=== PATIENT | male | born 1950 | race African-American/Black ===

== ENCOUNTER 2016-09-06 17:45 | Inpatient (IN) | payer BC, MEDICARE ==
[~2016-09-06] VITALS: Ht 190.5 cm; Wt 159.0 kg
[~2016-09-06 17:45] MED LIST: ACET1TAB33 PO; AMOX1TAB61 PO; CARV25TA2 PO; DULO60CA6 PO; HYDR-2762 PO; INDA1.25 PO; LISI1TAB7 PO; MECL25TA3 PO; METF-620 PO; SIMV10TA3 PO; WARF4TAB7 PO
[2016-09-06] MEDS ORDERED: FUROSEMIDE 20 MG/2 ML VIAL. IVP ONE (18:15)
[2016-09-06] MEDS ORDERED: NITROGLYCERIN SUBLINGUAL 0.4 MG BOTTLE OF 25. SL PRN (18:15)
[2016-09-06] MEDS ORDERED: NITROGLYCERIN OINT 1 GM PACKET. TP ONE (18:15)
--- NOTE | 2016-09-06 18:22 | PHYS DOC ---
Past Medical History Past Medical History: CHF, Diabetes-Type II, High Cholesterol, Heart Disease, Hypertension, Other Additional Past Medical Histor: BLOOD CLOTS, PE Past Surgical History: Knee Replacement, Tonsillectomy, Other Additional Past Surgical Histo: ELBOW X 2, KNEE SCOPE X3, FOOT X2, CARDIAC STENT X 3, ENDOCART/FILTER Alcohol Use: Occasionally Drug Use: Marijuana Adult General Chief Complaint Chief Complaint: CHEST PAIN HPI HPI Patient is a 66 year old male presenting to the emergency department for evaluation of worsening chest pain shortness of breath that started earlier this morning. Patient is very obese and has multiple medical problems including asthma and congestive heart failure and pulmonary emboli. He is being treated with warfarin and he says that he feels more volume overloaded as his legs are more swollen and he feels that he cannot lay flat without getting very anxious and short of breath. Patient denies any fevers productive cough nausea or vomiting but he does say that he is quite diaphoretic today. Review of Systems Review of Systems Constitutional: Denies fever or chills [] Eyes: Denies change in visual acuity, redness, or eye pain [] HENT: Denies nasal congestion or sore throat [] Respiratory: Denies cough. + shortness of breath [] Cardiovascular: +CP GI: Denies abdominal pain, nausea, vomiting, bloody stools or diarrhea [] : Denies dysuria or hematuria [] Musculoskeletal: Denies back pain or joint pain [] Integument: Denies rash or skin lesions [] Neurologic: Denies headache, focal weakness or sensory changes [] Current Medications Current Medications Current Medications Medications (Trade) Dose Ordered Sig/Ilene Start Time Stop Time Status Last Admin Dose Admin Furosemide (Lasix) 20 mg 1X ONCE 09/06/16 18:15 09/06/16 18:16 DC 09/06/16 18:15 20 MG Lorazepam (Ativan) 1 mg 1X ONCE 09/06/16 18:15 09/06/16 18:16 DC 09/06/16 18:15 1 MG Nitroglycerin (Nitro-Bid Oint) 1 inch 1X ONCE 09/06/16 18:15 09/06/16 18:16 DC 09/06/16 18:15 1 INCH Nitroglycerin (Nitrostat) 0.4 mg PRN Q5MIN PRN 09/06/16 18:15 Allergies Allergies Allergies Coded Allergies Type Severity Reaction Last Updated Verified fentanyl Allergy Mild Nausea and Vomiting 01/02/16 Yes Physical Exam Physical Exam Constitutional: Well developed, well nourished, moderate respiratory distress, non-toxic appearance. [] HENT: Normocephalic, atraumatic, bilateral external ears normal, oropharynx moist, no oral exudates, nose normal. [] Eyes: PERRLA, EOMI, conjunctiva normal, no discharge. [] Neck: Normal range of motion, no tenderness, supple, no stridor. [] Cardiovascular:Heart rate tachycardic with regular rhythm, coarse breath sounds Lungs & Thorax: Bilateral breath sounds clear to auscultation [] Abdomen: Bowel sounds normal, soft, no tenderness, no masses, no pulsatile masses. [] Skin: Warm, dry, no erythema, no rash. [] Back: No tenderness, no CVA tenderness. [] Extremities: No tenderness, no cyanosis, no clubbing, ROM intact. 2+ edema BL. [] Neurologic: Alert and oriented X 3, normal motor function, normal sensory function, no focal deficits noted. [] Current Patient Data Vital Signs Vital Signs Date Time Temp Pulse Resp B/P (MAP) Pulse Ox O2 Delivery O2 Flow Rate FiO2 09/06/16 18:45 110 28 171/91 (117) 100 09/06/16 18:25 BiPAP/CPAP 09/06/16 17:55 97.7 97.7 Lab Values Laboratory Tests Test 09/06/16 18:27 09/06/16 19:55 09/06/16 19:57 White Blood Count 6.2 x10^3/uL (4.0-11.0) Red Blood Count 4.42 x10^6/uL (4.30-5.70) Hemoglobin 12.3 g/dL (13.0-17.5) L Hematocrit 37.6 % (39.0-53.0) L Mean Corpuscular Volume 85 fL (79-100) Mean Corpuscular Hemoglobin 28 pg (25-35) Mean Corpuscular Hemoglobin Concent 33 g/dL (31-37) Red Cell Distribution Width 16.6 % (11.5-14.5) H Platelet Count 313 x10^3/uL (140-400) Neutrophils (%) (Auto) 66 % (31-73) Lymphocytes (%) (Auto) 22 % (24-48) L Monocytes (%) (Auto) 10 % (0-9) H Eosinophils (%) (Auto) 1 % (0-3) Basophils (%) (Auto) 1 % (0-3) Neutrophils # (Auto) 4.1 x10^3uL (1.8-7.7) Lymphocytes # (Auto) 1.3 x10^3/uL (1.0-4.8) Monocytes # (Auto) 0.6 x10^3/uL (0.0-1.1) Eosinophils # (Auto) 0.1 x10^3/uL (0.0-0.7) Basophils # (Auto) 0.1 x10^3/uL (0.0-0.2) Prothrombin Time 21.2 SEC (11.7-14.0) H Prothrombin Time INR 2.0 (0.8-1.1) H PTT 29 SEC (24-38) Lactic Acid Level 2.9 mmol/L (0.4-2.0) H POC Troponin I 0.02 ng/ml (<0.08) POC Hemoglobin 14.3 g/dL (14-18) POC Hematocrit 42 % (37-52) POC Sodium 140 mmol/L (135-145) POC Potassium 4.4 mmol/L (3.5-5.0) POC Chloride 100 mmol/L (98-110) POC Total CO2 27 mmol/L (23-32) Anion Gap 18 mmol/L (6-14) H POC Blood Urea Nitrogen 13 mg/dL (8-26) POC Creatinine 0.9 mg/dL (0.5-1.4) Glucose Level 161 mg/dL (70-99) H POC Ionized Calcium (Lois) 1.21 mmol/L (1.13-1.32) Laboratory Tests 09/06/16 18:27 Laboratory Tests 09/06/16 19:57 EKG EKG Sinus tachycardia at 113 bpm with leftward axis incomplete right bundle branch block with no obvious ST elevation or depression and normal T waves. Radiology/Procedures Radiology/Procedures Mediastinum cardiomegaly noted with bilateral upper lobe edema Course & Med Decision Making Course & Med Decision Making Patient is in moderate respiratory distress and was placed on BiPAP in addition to sublingual nitroglycerin and Nitropaste. Patient was doing much better after this treatment and he took off the BiPAP on his own as he said he felt much better. He does have some right lower lobe fullness although I do not think this is definitely a bacterial pneumonia although could be considered. He has normal white blood cell count. Acid elevated likely from respiratory distress and initial hypoxia. Patient will be admitted for further observation and treatment. Pulmonary embolism is already diagnosed and he is therapeutically treated with Coumadin. Dragon Disclaimer Dragon Disclaimer This electronic medical record was generated, in whole or in part, using a voice recognition dictation system. Departure Departure Impression: Primary Impression: Acute exacerbation of CHF (congestive heart failure) Additional Impression: Lactic acid acidosis Disposition: ADMITTED INPATIENT Admitting Physician: Matty Torres Condition: IMPROVED Referrals: UNKNOWN PCP NAME (PCP) Problem Qualifiers Primary Impression: Acute exacerbation of CHF (congestive heart failure) Congestive heart failure type: unspecified congestive heart failure type Qualified Codes: I50.9 - Heart failure, unspecified BEA PELAEZ DO September 06, 2016 18:22
[2016-09-06 18:37] LABS: BASO # 0.1 x10^3/uL (0.0-0.2); BASO % 1 % (0-3); EOS % 1 % (0-3); HEMATOCRIT 37.6 % (39.0-53.0); HEMOGLOBIN 12.3 g/dL (13.0-17.5); LYMPH # 1.3 x10^3/uL (1.0-4.8); LYMPH % 22 % (24-48); MEAN CORPUSCULAR HEMOGLOBIN 28 pg (25-35); MEAN CORPUSCULAR HGB CONC 33 g/dL (31-37); MEAN CORPUSCULAR VOLUME 85 fL (79-100); MONO % 10 % (0-9); NEUT % 66 % (31-73); PLATELET COUNT 313 x10^3/uL (140-400); RED BLOOD COUNT 4.42 x10^6/uL (4.30-5.70); RED CELL DISTRIBUTION WIDTH 16.6 % (11.5-14.5); WHITE BLOOD COUNT 6.2 x10^3/uL (4.0-11.0)
[2016-09-06 18:52] LABS: PROTHROMBIN TIME PATIENT 21.2 SEC (11.7-14.0)
[2016-09-06 20:00] LABS: POTASSIUM ISTAT 4.4 mmol/L (3.5-5.0)
[2016-09-06 20:18] LABS: CALCIUM 9.9 mg/dL (8.5-10.1); CREATININE 1.1 mg/dL (0.7-1.3); GFR 80.5; POTASSIUM 4.5 mmol/L (3.5-5.1)
[2016-09-06 20:26] LABS: ALBUMIN 3.5 g/dL (3.4-5.0); ALBUMIN/GLOBULIN RATIO 0.9 (1.0-1.7); MAGNESIUM 1.9 mg/dL (1.8-2.4); TOTAL BILIRUBIN 0.9 mg/dL (0.2-1.0); TOTAL PROTEIN 7.5 g/dL (6.4-8.2)
[2016-09-06] MEDS ORDERED: ONDANSETRON PF 4 MG/2 ML VIAL. IV PRN (20:45)
[2016-09-06] MEDS ORDERED: LISI10TA2 PO (21:40)
[2016-09-06] MEDS ORDERED: TRAM50TA PO (21:40)
[2016-09-06] MEDS ORDERED: WARF4TAB7 PO (21:40)
[2016-09-06] MEDS ORDERED: GABA-586 PO (21:40)
[2016-09-06 21:51] VITALS: BP 161/116
[2016-09-06] MEDS ORDERED: ACETAMINOPHEN/CODEINE 300/30MG TABLET. PO PRN (22:15)
[2016-09-06 22:23] VITALS: BP 144/110
[2016-09-06] MEDS ORDERED: MECLIZINE HCL 12.5 MG TABLET. PO PRN (22:30)
[2016-09-06] MEDS: DULoxetine HCL 30 MG CAPSULE.DR PO SCH (22:43)
[2016-09-06] MEDS: LISINOPRIL 10 MG TABLET PO SCH (22:44)
[2016-09-06] MEDS: GABAPENTIN 300 MG CAPSULE. PO SCH (22:44)
[2016-09-06] MEDS: CARVEDILOL 12.5 MG TABLET. PO SCH (22:44)
[2016-09-06] MEDS: SIMVASTATIN 10 MG TABLET PO SCH (22:44)
[2016-09-06] MEDS: traMADol 50 MG TABLET PO SCH (22:45)
--- NOTE | 2016-09-06 23:38 | PDOC1 ---
History and Physical Current Problem List Problem List Problems Medical Problems: (1) Acute exacerbation of CHF (congestive heart failure) Status: Acute (2) Lactic acid acidosis Status: Acute Current Medications Current Medications Current Medications Medications (Trade) Dose Ordered Sig/Ilene Start Time Stop Time Status Last Admin Dose Admin Acetaminophen/ Codeine Phosphate (Tylenol #3) 1 tab PRN Q4HRS PRN 09/06/16 22:15 Carvedilol (Coreg) 25 mg BIDWMEALS 09/06/16 23:00 09/06/16 22:44 25 MG Duloxetine HCl (Cymbalta) 60 mg BID 09/06/16 23:00 09/06/16 22:43 60 MG Furosemide (Lasix) 20 mg 1X ONCE 09/06/16 18:15 09/06/16 18:16 DC 09/06/16 18:15 20 MG Gabapentin (Neurontin) 300 mg TID 09/06/16 23:00 09/06/16 22:44 300 MG Lisinopril (Prinivil) 10 mg BID 09/06/16 23:00 09/06/16 22:44 10 MG Lorazepam (Ativan) 1 mg 1X ONCE 09/06/16 18:15 09/06/16 18:16 DC 09/06/16 18:15 1 MG Meclizine HCl (Antivert) 25 mg PRN BID PRN 09/06/16 22:30 Nitroglycerin (Nitro-Bid Oint) 1 inch 1X ONCE 09/06/16 18:15 09/06/16 18:16 DC 09/06/16 18:15 1 INCH Nitroglycerin (Nitrostat) 0.4 mg PRN Q5MIN PRN 09/06/16 18:15 Ondansetron HCl (Zofran) 4 mg PRN Q8HRS PRN 09/06/16 20:45 09/07/16 20:44 Simvastatin (Zocor) 10 mg QHS 09/06/16 23:00 09/06/16 22:44 10 MG Tramadol HCl (Ultram) 50 mg BID 09/06/16 23:00 09/06/16 22:45 50 MG Warfarin Sodium (Coumadin Per Physician) 1 each PRN DAILY PRN 09/06/16 22:45 Warfarin Sodium (Coumadin) 4 mg DAILY16 09/07/16 16:00 Allergies Allergies Allergies Coded Allergies Type Severity Reaction Last Updated Verified fentanyl Allergy Mild Nausea and Vomiting 01/02/16 Yes ROS Review of System CONSTITUTIONAL: No fever or chills EYES: No recent changes SKIN: No rash or itching CARDIOVASCULAR: No chest pain, syncope, palpitations, or edema RESPIRATORY: No SOB or cough GASTROINTESTINAL: No nausea, vomiting or abdominal pain NEUROLOGICAL: No headaches or weakness ENDOCRINE: No cold or heat intolerance GENITOURINARY: No urgency or frequency of urination MUSCULOSKELETAL: No back pain or joint pain LYMPHATICS: No enlarged lymph nodes PSYCHIATRIC: No anxiety or depression Physical Exam Physical Exam GEN.: No apparent distress. Alert and oriented. HEENT: Head is normocephalic, atraumatic NECK: Supple. no JVD LUNGS: anterior- Clear to auscultation. basal rales HEART: RRR, S1, S2 present. Peripheral pulses intact ABDOMEN: Soft, nontender. Positive bowel sounds. EXTREMITIES: Without any cyanosis. +2 edema NEUROLOGIC: Normal speech, normal tone PSYCHIATRIC: Normal affect, normal mood. SKIN: not dry, no rash Vitals Vitals Vital Signs Date Time Temp Pulse Resp B/P (MAP) Pulse Ox O2 Delivery O2 Flow Rate FiO2 09/06/16 22:45 94 09/06/16 22:44 109 144/110 09/06/16 22:23 97.9 18 Room Air 97.9 Labs Labs Laboratory Tests Test 09/06/16 18:27 09/06/16 19:45 09/06/16 19:55 09/06/16 19:57 White Blood Count 6.2 x10^3/uL (4.0-11.0) Red Blood Count 4.42 x10^6/uL (4.30-5.70) Hemoglobin 12.3 g/dL (13.0-17.5) Hematocrit 37.6 % (39.0-53.0) Mean Corpuscular Volume 85 fL (79-100) Mean Corpuscular Hemoglobin 28 pg (25-35) Mean Corpuscular Hemoglobin Concent 33 g/dL (31-37) Red Cell Distribution Width 16.6 % (11.5-14.5) Platelet Count 313 x10^3/uL (140-400) Neutrophils (%) (Auto) 66 % (31-73) Lymphocytes (%) (Auto) 22 % (24-48) Monocytes (%) (Auto) 10 % (0-9) Eosinophils (%) (Auto) 1 % (0-3) Basophils (%) (Auto) 1 % (0-3) Neutrophils # (Auto) 4.1 x10^3uL (1.8-7.7) Lymphocytes # (Auto) 1.3 x10^3/uL (1.0-4.8) Monocytes # (Auto) 0.6 x10^3/uL (0.0-1.1) Eosinophils # (Auto) 0.1 x10^3/uL (0.0-0.7) Basophils # (Auto) 0.1 x10^3/uL (0.0-0.2) Prothrombin Time 21.2 SEC (11.7-14.0) Prothromb Time International Ratio 2.0 (0.8-1.1) Activated Partial Thromboplast Time 29 SEC (24-38) Lactic Acid Level 2.9 mmol/L (0.4-2.0) Sodium Level 139 mmol/L (136-145) Potassium Level 4.5 mmol/L (3.5-5.1) Chloride Level 103 mmol/L (98-107) Carbon Dioxide Level 32 mmol/L (21-32) Anion Gap 4 (6-14) 18 mmol/L (6-14) Blood Urea Nitrogen 13 mg/dL (8-26) Creatinine 1.1 mg/dL (0.7-1.3) Estimated GFR (Cockcroft-Gault) 80.5 BUN/Creatinine Ratio 12 (6-20) Glucose Level 168 mg/dL (70-99) 161 mg/dL (70-99) Calcium Level 9.9 mg/dL (8.5-10.1) Magnesium Level 1.9 mg/dL (1.8-2.4) Total Bilirubin 0.9 mg/dL (0.2-1.0) Aspartate Amino Transf (AST/SGOT) 40 U/L (15-37) Alanine Aminotransferase (ALT/SGPT) 68 U/L (16-63) Alkaline Phosphatase 101 U/L (46-116) Creatine Kinase 53 U/L (39-308) Troponin I Quantitative 0.024 ng/mL (0.000-0.055) CA-Mff-X-Type Natriuretic Peptide 2595 pg/mL (0-124) Total Protein 7.5 g/dL (6.4-8.2) Albumin 3.5 g/dL (3.4-5.0) Albumin/Globulin Ratio 0.9 (1.0-1.7) Bedside Troponin I 0.02 ng/ml (<0.08) Bedside Hemoglobin 14.3 g/dL (14-18) Bedside Hematocrit 42 % (37-52) Bedside Sodium 140 mmol/L (135-145) Bedside Potassium 4.4 mmol/L (3.5-5.0) Bedside Chloride 100 mmol/L (98-110) Bedside Total CO2 27 mmol/L (23-32) Bedside Blood Urea Nitrogen 13 mg/dL (8-26) Bedside Creatinine 0.9 mg/dL (0.5-1.4) Bedside Ionized Calcium (Lois) 1.21 mmol/L (1.13-1.32) Test 09/06/16 22:35 Lactic Acid Level 2.8 mmol/L (0.4-2.0) Laboratory Tests Test 09/06/16 18:27 09/06/16 19:45 09/06/16 19:55 09/06/16 19:57 White Blood Count 6.2 x10^3/uL (4.0-11.0) Red Blood Count 4.42 x10^6/uL (4.30-5.70) Hemoglobin 12.3 g/dL (13.0-17.5) Hematocrit 37.6 % (39.0-53.0) Mean Corpuscular Volume 85 fL (79-100) Mean Corpuscular Hemoglobin 28 pg (25-35) Mean Corpuscular Hemoglobin Concent 33 g/dL (31-37) Red Cell Distribution Width 16.6 % (11.5-14.5) Platelet Count 313 x10^3/uL (140-400) Neutrophils (%) (Auto) 66 % (31-73) Lymphocytes (%) (Auto) 22 % (24-48) Monocytes (%) (Auto) 10 % (0-9) Eosinophils (%) (Auto) 1 % (0-3) Basophils (%) (Auto) 1 % (0-3) Neutrophils # (Auto) 4.1 x10^3uL (1.8-7.7) Lymphocytes # (Auto) 1.3 x10^3/uL (1.0-4.8) Monocytes # (Auto) 0.6 x10^3/uL (0.0-1.1) Eosinophils # (Auto) 0.1 x10^3/uL (0.0-0.7) Basophils # (Auto) 0.1 x10^3/uL (0.0-0.2) Prothrombin Time 21.2 SEC (11.7-14.0) Prothromb Time International Ratio 2.0 (0.8-1.1) Activated Partial Thromboplast Time 29 SEC (24-38) Lactic Acid Level 2.9 mmol/L (0.4-2.0) Sodium Level 139 mmol/L (136-145) Potassium Level 4.5 mmol/L (3.5-5.1) Chloride Level 103 mmol/L (98-107) Carbon Dioxide Level 32 mmol/L (21-32) Anion Gap 4 (6-14) 18 mmol/L (6-14) Blood Urea Nitrogen 13 mg/dL (8-26) Creatinine 1.1 mg/dL (0.7-1.3) Estimated GFR (Cockcroft-Gault) 80.5 BUN/Creatinine Ratio 12 (6-20) Glucose Level 168 mg/dL (70-99) 161 mg/dL (70-99) Calcium Level 9.9 mg/dL (8.5-10.1) Magnesium Level 1.9 mg/dL (1.8-2.4) Total Bilirubin 0.9 mg/dL (0.2-1.0) Aspartate Amino Transf (AST/SGOT) 40 U/L (15-37) Alanine Aminotransferase (ALT/SGPT) 68 U/L (16-63) Alkaline Phosphatase 101 U/L (46-116) Creatine Kinase 53 U/L (39-308) Troponin I Quantitative 0.024 ng/mL (0.000-0.055) CR-Aay-T-Type Natriuretic Peptide 2595 pg/mL (0-124) Total Protein 7.5 g/dL (6.4-8.2) Albumin 3.5 g/dL (3.4-5.0) Albumin/Globulin Ratio 0.9 (1.0-1.7) Bedside Troponin I 0.02 ng/ml (<0.08) Bedside Hemoglobin 14.3 g/dL (14-18) Bedside Hematocrit 42 % (37-52) Bedside Sodium 140 mmol/L (135-145) Bedside Potassium 4.4 mmol/L (3.5-5.0) Bedside Chloride 100 mmol/L (98-110) Bedside Total CO2 27 mmol/L (23-32) Bedside Blood Urea Nitrogen 13 mg/dL (8-26) Bedside Creatinine 0.9 mg/dL (0.5-1.4) Bedside Ionized Calcium (Lois) 1.21 mmol/L (1.13-1.32) Test 09/06/16 22:35 Lactic Acid Level 2.8 mmol/L (0.4-2.0) VTE Prophylaxis Ordered VTE Prophylaxis Devices: Yes VTE Pharmacological Prophylaxi: Yes GELY YAO MD September 06, 2016 23:38
--- NOTE | 2016-09-07 00:54 | ACF ---
Admission Forms Criteria HEART FAILURE: COMMON COMPLICATIONS Clinical Indications for Inpatient Care (Place 'X' for any and all applicable criteria): Ongoing inpatient care may be indicated for heart failure with ANY ONE of the following (1)(2)(3)(4)(5): [ ]I. Ongoing need for care for primary condition requiring frequent therapy adjustments because of changes in cardiac function (eg, drug dosage changes for drugs that are renally metabolized) [ ]II. New-onset heart failure [ ]III. Heart failure with decreased urine output not responsive to attempts to optimize volume status [ ]IV. Acute cardiac ischemia causing or associated with failure [X]V. Complications of heart failure, including ANY ONE of the following: [ ]a) Pericardial effusion [ ]b) Symptomatic pleural effusion [ ]c) O2 saturation <90% or PO2 < 60 mm Hg (8.0 kPa) on room air or require baseline supplemental O2 [ ]d) Tachypnea [X]e) Dyspnea [ ]f) Syncope [ ]g) Change in mental status [ ]h) Acute renal insufficiency that is severe (reduction of more than 50% in estimated glomerular filtration rate from baseline) or progressive reduction of more than 25% in estimated glomerular filtration rate from baseline, with creatinine continuing to rise) [ ]i) Hemodynamic instability [ ]j) Anasarca [ ]k) Clinically significant metabolic abnormalities due to heart failure (eg, new-onset metabolic acidosis) Extended stay beyond goal length of stay for primary condition may be needed until ALL of the following are present(1)(3): [ ]a) Stable and effective diuretic regimen established (or patient on stable dialysis regimen if in chronic renal failure) [ ]b) Breathing comfortably at rest [ ]c) Saturation of arterial oxygen greater than 90% or at acceptable baseline [ ]d) Pulmonary edema absent or improved [ ]e) Hemodynamic stability [ ]f) Volume status acceptable on oral medication [ ]g) Peripheral or sacral edema absent or improved [ ]h) Renal function stable and manageable at a lower level of care [ ]i) Complications (eg, pleural effusion) resolved or manageable at a lower level of care [ ]j) Patient or caregiver has received written discharge instructions or educational material addressing activity level, diet, discharge medications, follow-up appointment, weight monitoring, and what to do if symptoms worsen The original [facility] content created by [employer] has been revised. The portions of the content which have been revised are identified through the use of italic text or in bold, and [facility] has neither reviewed nor approved the modified material.All other unmodified content is copyright [facility]. Please see references footnoted in the original [facility] edition 2016 Admission Criteria Met?: Yes HUMBLE BAEZA September 07, 2016 00:54
[2016-09-07 02:47] VITALS: BP 149/112
[2016-09-07] MEDS ORDERED: FUROSEMIDE 20 MG/2 ML VIAL. IVP ONE (04:00)
[2016-09-07 04:15] LABS: BASO # 0.1 x10^3/uL (0.0-0.2); BASO % 1 % (0-3); EOS % 2 % (0-3); HEMATOCRIT 37.7 % (39.0-53.0); HEMOGLOBIN 12.2 g/dL (13.0-17.5); LYMPH # 1.7 x10^3/uL (1.0-4.8); LYMPH % 30 % (24-48); MEAN CORPUSCULAR HEMOGLOBIN 27 pg (25-35); MEAN CORPUSCULAR HGB CONC 32 g/dL (31-37); MEAN CORPUSCULAR VOLUME 85 fL (79-100); MONO % 9 % (0-9); NEUT % 58 % (31-73); PLATELET COUNT 319 x10^3/uL (140-400); RED BLOOD COUNT 4.44 x10^6/uL (4.30-5.70); RED CELL DISTRIBUTION WIDTH 16.2 % (11.5-14.5); WHITE BLOOD COUNT 5.6 x10^3/uL (4.0-11.0)
[2016-09-07 05:05] LABS: CALCIUM 9.5 mg/dL (8.5-10.1); CREATININE 0.9 mg/dL (0.7-1.3); GFR 101.5; POTASSIUM 4.4 mmol/L (3.5-5.1)
[2016-09-07 07:00] VITALS: BP 133/102
[2016-09-07] MEDS ORDERED: CARVEDILOL 12.5 MG TABLET. PO SCH (08:00)
--- NOTE | 2016-09-07 08:52 | PDOC2 ---
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 Reports that initially he started having CARRION then SOA at rest which all started about 3-4 days ago. In addition to these he developed orthopnea, STONER , nonproductive cough, leg swelling and PND. Then he started having chest discomfort mid chest nonradiating. No nausea or vomiting or palpitations. Reports that he has been waiting for his medications [facility] and it has not arrived and he ran out of his medications 4 days ago. Verbalized that he does not take lasix but has indapamide. He sees a head cashier Ivan Kearney whom he saw over a yr ago. His baseline is mainly sedentary and does not follow strict DM regimen but his BG has been in the 130s. He does not check his BP as well. He had remote LHC about 8 yrs ago and was mentioned by his head cashier before that he will make his heart stronger but there was no mention of cardiomyopathy and repeatedly denies of any coronary stents. There was no mention of defibrillator. He is positive for PE/ DVT in which he has coumadin for and IVC filter. He also uses home bipap but was never told of COPD despite his past 20 pk yr tobaccoism which he quit 8 yrs ago. Currently he feels better, leg swelling improved, no CP. PAST MEDICAL HISTORY Cardiovascular: CHF, HTN, Hyperlipidemia Pulmonary: Pulmonary embolus, Other (ROSEANN uses bipap) CENTRAL NERVOUS SYSTEM: Other (No pertinent history) GI: GERD Heme/Onc: Cancer (precancer polyps?), Other (chronic anticoagulation) Hepatobiliary: No pertinent hx Psych: Anxiety Musculoskeletal: Osteoarthritis, Other (morbid obesity) Rheumatologic: No pertinent hx Infectious disease: No pertinent hx ENT: No pertinent hx Renal/: Prostate Ca. (treated with radiation) Endocrine: Diabetes (2) Dermatology: No pertinent hx PAST SURGICAL HISTORY Past Surgical History: Arthroscopy (knee and elbow), Total knee replacement ( left), Tonsillectomy, Other (IVC filter 3-4 yrs ago) FAMILY HISTORY Family History noncontributory to CV SOCIAL HISTORY Smoke: No (quit 8 yrs ago 20 pk yr) ALCOHOL: occassional Drugs: None Lives: with Family CURRENT MEDICATIONS CURRENT MEDICATIONS Current Medications Medications (Trade) Dose Ordered Sig/Ilene Route PRN Reason Start Time Stop Time Status Last Admin Dose Admin Lorazepam (Ativan) 1 mg 1X ONCE IV 09/06/16 18:15 09/06/16 18:16 DC 09/06/16 18:15 Nitroglycerin (Nitro-Bid Oint) 1 inch 1X ONCE TP 09/06/16 18:15 09/06/16 18:16 DC 09/06/16 18:15 Furosemide (Lasix) 20 mg 1X ONCE IVP 09/06/16 18:15 09/06/16 18:16 DC 09/06/16 18:15 Simvastatin (Zocor) 10 mg QHS PO 09/06/16 23:00 09/06/16 22:44 Tramadol HCl (Ultram) 50 mg BID PO 09/06/16 23:00 09/06/16 22:45 Duloxetine HCl (Cymbalta) 60 mg BID PO 09/06/16 23:00 09/06/16 22:43 Warfarin Sodium (Coumadin Per Physician) 1 each PRN DAILY PRN MC SEE COMMENTS 09/06/16 22:45 09/07/16 01:15 Carvedilol (Coreg) 25 mg BIDWMEALS PO 09/06/16 23:00 09/06/16 22:44 Gabapentin (Neurontin) 300 mg TID PO 09/06/16 23:00 09/06/16 22:44 Lisinopril (Prinivil) 10 mg BID PO 09/06/16 23:00 09/06/16 22:44 Furosemide (Lasix) 20 mg 1X ONCE IVP 09/07/16 04:00 09/07/16 04:01 DC 09/07/16 06:12 ALLERGIES ALLERGIES: Coded Allergies: fentanyl (Verified Allergy, Mild, Nausea and Vomiting, 01/02/16) ROS Review of System 14 point ROS evaluated with pertinent positives noted per HPI PHYSICAL EXAM General: Alert, Oriented X3, Cooperative, No acute distress HEENT: Atraumatic, Mucous membr. moist/pink Lungs: Other (diminished bases) Heart: Regular rate, Other (distant heart sounds; 3/6 systolic murmur to LLS border) Abdomen: Soft, Other (morbidly obese) Extremities: No cyanosis, Other (2+ bilateral LE pitting edema) Skin: No breakdown, No significant lesion Neuro: Normal speech, Sensation intact Psych/Mental Status: Mental status NL, Mood NL MUSCULOSKELETAL: Osteoarthritic changes both hands VITALS VITALS Vital Signs Date Time Temp Pulse Resp B/P (MAP) Pulse Ox O2 Delivery O2 Flow Rate FiO2 09/07/16 08:20 Room Air 09/07/16 07:00 98.1 109 20 133/102 (112) 96 98.1 LABS Lab: Laboratory Tests Test 09/06/16 18:27 09/06/16 19:45 09/06/16 19:55 09/06/16 19:57 White Blood Count 6.2 x10^3/uL (4.0-11.0) Red Blood Count 4.42 x10^6/uL (4.30-5.70) Hemoglobin 12.3 g/dL (13.0-17.5) Hematocrit 37.6 % (39.0-53.0) Mean Corpuscular Volume 85 fL (79-100) Mean Corpuscular Hemoglobin 28 pg (25-35) Mean Corpuscular Hemoglobin Concent 33 g/dL (31-37) Red Cell Distribution Width 16.6 % (11.5-14.5) Platelet Count 313 x10^3/uL (140-400) Neutrophils (%) (Auto) 66 % (31-73) Lymphocytes (%) (Auto) 22 % (24-48) Monocytes (%) (Auto) 10 % (0-9) Eosinophils (%) (Auto) 1 % (0-3) Basophils (%) (Auto) 1 % (0-3) Neutrophils # (Auto) 4.1 x10^3uL (1.8-7.7) Lymphocytes # (Auto) 1.3 x10^3/uL (1.0-4.8) Monocytes # (Auto) 0.6 x10^3/uL (0.0-1.1) Eosinophils # (Auto) 0.1 x10^3/uL (0.0-0.7) Basophils # (Auto) 0.1 x10^3/uL (0.0-0.2) Prothrombin Time 21.2 SEC (11.7-14.0) Prothromb Time International Ratio 2.0 (0.8-1.1) Activated Partial Thromboplast Time 29 SEC (24-38) Lactic Acid Level 2.9 mmol/L (0.4-2.0) Sodium Level 139 mmol/L (136-145) Potassium Level 4.5 mmol/L (3.5-5.1) Chloride Level 103 mmol/L (98-107) Carbon Dioxide Level 32 mmol/L (21-32) Anion Gap 4 (6-14) 18 mmol/L (6-14) Blood Urea Nitrogen 13 mg/dL (8-26) Creatinine 1.1 mg/dL (0.7-1.3) Estimated GFR (Cockcroft-Gault) 80.5 BUN/Creatinine Ratio 12 (6-20) Glucose Level 168 mg/dL (70-99) 161 mg/dL (70-99) Calcium Level 9.9 mg/dL (8.5-10.1) Magnesium Level 1.9 mg/dL (1.8-2.4) Total Bilirubin 0.9 mg/dL (0.2-1.0) Aspartate Amino Transf (AST/SGOT) 40 U/L (15-37) Alanine Aminotransferase (ALT/SGPT) 68 U/L (16-63) Alkaline Phosphatase 101 U/L (46-116) Creatine Kinase 53 U/L (39-308) Troponin I Quantitative 0.024 ng/mL (0.000-0.055) FU-Ayh-V-Type Natriuretic Peptide 2595 pg/mL (0-124) Total Protein 7.5 g/dL (6.4-8.2) Albumin 3.5 g/dL (3.4-5.0) Albumin/Globulin Ratio 0.9 (1.0-1.7) Bedside Troponin I 0.02 ng/ml (<0.08) Bedside Hemoglobin 14.3 g/dL (14-18) Bedside Hematocrit 42 % (37-52) Bedside Sodium 140 mmol/L (135-145) Bedside Potassium 4.4 mmol/L (3.5-5.0) Bedside Chloride 100 mmol/L (98-110) Bedside Total CO2 27 mmol/L (23-32) Bedside Blood Urea Nitrogen 13 mg/dL (8-26) Bedside Creatinine 0.9 mg/dL (0.5-1.4) Bedside Ionized Calcium (Lois) 1.21 mmol/L (1.13-1.32) Test 09/06/16 22:35 09/07/16 03:45 09/07/16 04:06 09/07/16 07:25 Lactic Acid Level 2.8 mmol/L (0.4-2.0) Troponin I Quantitative 0.030 ng/mL (0.000-0.055) White Blood Count 5.6 x10^3/uL (4.0-11.0) Red Blood Count 4.44 x10^6/uL (4.30-5.70) Hemoglobin 12.2 g/dL (13.0-17.5) Hematocrit 37.7 % (39.0-53.0) Mean Corpuscular Volume 85 fL (79-100) Mean Corpuscular Hemoglobin 27 pg (25-35) Mean Corpuscular Hemoglobin Concent 32 g/dL (31-37) Red Cell Distribution Width 16.2 % (11.5-14.5) Platelet Count 319 x10^3/uL (140-400) Neutrophils (%) (Auto) 58 % (31-73) Lymphocytes (%) (Auto) 30 % (24-48) Monocytes (%) (Auto) 9 % (0-9) Eosinophils (%) (Auto) 2 % (0-3) Basophils (%) (Auto) 1 % (0-3) Neutrophils # (Auto) 3.3 x10^3uL (1.8-7.7) Lymphocytes # (Auto) 1.7 x10^3/uL (1.0-4.8) Monocytes # (Auto) 0.5 x10^3/uL (0.0-1.1) Eosinophils # (Auto) 0.1 x10^3/uL (0.0-0.7) Basophils # (Auto) 0.1 x10^3/uL (0.0-0.2) Sodium Level 140 mmol/L (136-145) Potassium Level 4.4 mmol/L (3.5-5.1) Chloride Level 103 mmol/L (98-107) Carbon Dioxide Level 29 mmol/L (21-32) Anion Gap 8 (6-14) Blood Urea Nitrogen 13 mg/dL (8-26) Creatinine 0.9 mg/dL (0.7-1.3) Estimated GFR (Cockcroft-Gault) 101.5 Glucose Level 137 mg/dL (70-99) Calcium Level 9.5 mg/dL (8.5-10.1) Glucose (Fingerstick) 145 mg/dL (70-99) ASSESSMENT/PLAN ASSESSMENT/PLAN 1. Acute on chronic systolic CHF: likely due to missed meds for 4 days, ran out , still waiting through mail order. 2. Cardiomyopathy: unclear of his baseline if this is old or new. Sees cardiology 3. Chest pain: per pt las LHC was 8 yrs ago, no stents. Troponin series normal 4. HTN: labile 5. DM2/HLP 6. Hx of PE/DVT/IVC filter with chronic anticoagulation: coumadin with INR at 2.0. 7. Morbid obesity: BMI 45 8. ROSEANN: Bipap at home 9. Suspect underlying COPD Recommendations 1. Preliminary EF at 20%, No recent LHC, records reviewed below with significant changes in todays comparison 2. Lasix therapy. 3. Continue on bipap at hs. 4. Will hold coumadin dose today for possible LHC tomorrow 5. ASA. Restart home coreg, lisinopril, statin. 6. Mg and lipid panel. 7. Discussed treatment adherence and optimization plan 8. Hold metformin. 9. Risks and benefits in regards to LHC and at the present time would like to discuss with his outpt head cashier Dr. Costello in before agreeing Records Review * records 07/2013 noted with mild CAD, NICM, remote hx of PUD * MPI 08/22/2013 negative for inducible ischemia. ventricle with mild dilation * moderate LV dysfunction with EF of 37% with global hypokinesis * small fixed perfusion defect to inferior wall, felt to be due to underlying attenuation defect * MPI 12/28/2008 with EF of 43% * TTE 11/22/2015 with LVEF of 40-45%, mild to moderate LV dysfunction with mildly dilated LV Problems: MARINA TIWARI MD 09/07/16 1628: CARDIAC CONSULT ALLERGIES ALLERGIES: Coded Allergies: fentanyl (Verified Allergy, Mild, Nausea and Vomiting, 01/02/16) ASSESSMENT/PLAN ASSESSMENT/PLAN Pt. seen and examined. Agree with above CORPORATE ASSOCIATE ATTORNEY note. 66 y.o male with acute diastolic and systolic heart failure. Echo with EF of < 25%. Continue diuresis. Will await patient decision about heart cath. Otherwise, optimize med therapy and f/u with [facility] head cashier. Problems: GUSTAVO WEBER APRN September 07, 2016 08:52 MARINA TIWARI MD September 07, 2016 16:28
[2016-09-07] MEDS: ASPIRIN ENTERIC COATED 81 MG TABLET.DR. PO SCH (09:00)
[2016-09-07] MEDS ORDERED: GABAPENTIN 300 MG CAPSULE. PO SCH (09:00)
[2016-09-07] MEDS ORDERED: LISINOPRIL 10 MG TABLET PO SCH (09:00)
[2016-09-07] MEDS: traMADol 50 MG TABLET PO SCH ×2 (09:19→21:27)
[2016-09-07] MEDS: LISINOPRIL 10 MG TABLET PO SCH ×2 (09:19→21:30)
[2016-09-07] MEDS: DULoxetine HCL 30 MG CAPSULE.DR PO SCH ×2 (09:19→22:04)
[2016-09-07] MEDS: CARVEDILOL 12.5 MG TABLET. PO SCH ×2 (09:20→17:40)
--- NOTE | 2016-09-07 09:41 | EKG ---
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
--- NOTE | 2016-09-07 09:42 | RAD ---
Exam performed: One view chest. History: Chest pain and shortness of breath today. Date of service: 09/06/16. Comparison: 01/02/16. Single AP upright portable view chest findings: Stable cardiomegaly. Pulmonary vascularity is congested. There is a chronic area opacity in the right lung base. No focal infiltrates, effusion or pneumothorax seen. Impression: Cardiomegaly with mild central vascular congestion.
--- NOTE | 2016-09-07 09:43 | HP ---
ADMIT DATE: 09/06/2016 CHIEF COMPLAINT: Shortness of breath and chest pain. HISTORY OF PRESENT ILLNESS: A 66-year-old male patient admitted to the hospital for worsening shortness of breath and chest pain for nearly 1-day duration. He has a history of type 2 diabetes mellitus, coronary artery disease and PE. Currently, he is on blood thinners. He was requiring BiPAP in the ER. Symptoms got better; however, he still complains of some chest pain, which is located at the left side of the chest no radiation. He denies any nausea, vomiting; however, he is tachycardic. PAST MEDICAL HISTORY: CHF, type 2 diabetes mellitus, hyperlipidemia, hypertension, coronary artery disease and PE. PAST SURGICAL HISTORY: Knee replacement, tonsillectomy, elbow surgery, coronary artery stent placement and IVC filter placement. PERSONAL HISTORY: Occasionally takes marijuana, no smoking, no alcohol. FAMILY HISTORY: Hypertension. REVIEW OF SYSTEMS: Please see my electronic H and P. PHYSICAL EXAMINATION: Please see my electronic H and P. LABORATORY FINDINGS: CBC within normal limits. Chemistries: Sodium is 130, potassium 4.4, chloride is 100, gap is 18, blood sugar 161, lactate 2.8. First set of troponins, 0.024. BNP 2595. Coagulation panel: INR is 2.0, PT is 21.1. IMAGING STUDIES: Chest x-ray: Preliminary report showed ____ cardiomegaly. EKG: Not able to see the EKG, but as per the ER report, the patient has some sinus tachycardia, no ST-T wave changes. ASSESSMENT: A 66-year-old male patient who presented with: 1. Chest pain and shortness of breath. Possible differentials are acute coronary syndrome versus pulmonary embolism versus pneumonia. 2. Hypertension. 3. History of pulmonary embolism, on Coumadin. 4. Obesity. 5. Leg swelling. 6. Hyperlipidemia. 7. Type 2 diabetes mellitus. PLAN: 1. He is being placed on IV Lasix and if his symptoms improved with BiPAP, I will continue his BIPAP PRN 2. Monitor troponin 3. Cardiology will see the patient in the morning. 4. Sliding scale insulin. 5. Hold his metformin. 6. P.r.n. hydralazine if systolic blood pressure more than 150. 7. Echocardiogram. 8. Home medications reviewed and reconciled. 9. Pharmacy to dose warfarin. 10. Prognosis is guarded. 11. warfarin INR goal 2-3. GELY YAO MD DR: ANA/johnny JOB#: [id number] / [id number] YECENIA
[2016-09-07] MEDS: GABAPENTIN 300 MG CAPSULE. PO SCH ×3 (09:45→21:27)
[2016-09-07 11:00] VITALS: BP 138/90
[2016-09-07] MEDS ORDERED: FUROSEMIDE 40 MG/4 ML VIAL. IVP ONE (11:00)
--- NOTE | 2016-09-07 12:42 | PDOC ---
PROGRESS NOTES Chief Complaint Chief Complaint Acute respir failure ASSESSMENT AND PLAN: 1. CHF exacerbation: systolic (EF 20%); prob 2/2 missed meds at home for several days. appreciate cardiology service input. lasix IV 2. Chest pain: ACS r/o with serial enzymes, 3. HTN: on home YANIRA-I, BB 4. HLD: on statin 5. DM2: on metformin at home, hold for now. ISS 6. 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 also has IVC filter 7. Morbid obesity: BMI 45 8. ROSEANN: CPAP at home, BiPAP her at nite and PRN History of Present Illness History of Present Illness very SOB. expir wheezes, no ongoing CP Vitals Vitals Vital Signs Date Time Temp Pulse Resp B/P (MAP) Pulse Ox O2 Delivery O2 Flow Rate FiO2 09/07/16 11:00 97.9 104 20 138/90 (106) 88 Room Air 97.9 Physical Exam General: Alert, Oriented X3, Cooperative, No acute distress Heart: Regular rate, Other (distant heart sounds; 3/6 systolic murmur to LLS border) Lungs: Crackles Abdomen: Soft, Other (massively obese) Extremities: No cyanosis, Other (2+ bilateral LE pitting edema) Skin: No breakdown, No significant lesion Labs LABS Laboratory Tests Test 09/06/16 18:27 09/06/16 19:45 09/06/16 19:55 09/06/16 19:57 White Blood Count 6.2 x10^3/uL (4.0-11.0) Red Blood Count 4.42 x10^6/uL (4.30-5.70) Hemoglobin 12.3 g/dL (13.0-17.5) Hematocrit 37.6 % (39.0-53.0) Mean Corpuscular Volume 85 fL (79-100) Mean Corpuscular Hemoglobin 28 pg (25-35) Mean Corpuscular Hemoglobin Concent 33 g/dL (31-37) Red Cell Distribution Width 16.6 % (11.5-14.5) Platelet Count 313 x10^3/uL (140-400) Neutrophils (%) (Auto) 66 % (31-73) Lymphocytes (%) (Auto) 22 % (24-48) Monocytes (%) (Auto) 10 % (0-9) Eosinophils (%) (Auto) 1 % (0-3) Basophils (%) (Auto) 1 % (0-3) Neutrophils # (Auto) 4.1 x10^3uL (1.8-7.7) Lymphocytes # (Auto) 1.3 x10^3/uL (1.0-4.8) Monocytes # (Auto) 0.6 x10^3/uL (0.0-1.1) Eosinophils # (Auto) 0.1 x10^3/uL (0.0-0.7) Basophils # (Auto) 0.1 x10^3/uL (0.0-0.2) Prothrombin Time 21.2 SEC (11.7-14.0) Prothromb Time International Ratio 2.0 (0.8-1.1) Activated Partial Thromboplast Time 29 SEC (24-38) Lactic Acid Level 2.9 mmol/L (0.4-2.0) Sodium Level 139 mmol/L (136-145) Potassium Level 4.5 mmol/L (3.5-5.1) Chloride Level 103 mmol/L (98-107) Carbon Dioxide Level 32 mmol/L (21-32) Anion Gap 4 (6-14) 18 mmol/L (6-14) Blood Urea Nitrogen 13 mg/dL (8-26) Creatinine 1.1 mg/dL (0.7-1.3) Estimated GFR (Cockcroft-Gault) 80.5 BUN/Creatinine Ratio 12 (6-20) Glucose Level 168 mg/dL (70-99) 161 mg/dL (70-99) Calcium Level 9.9 mg/dL (8.5-10.1) Magnesium Level 1.9 mg/dL (1.8-2.4) Total Bilirubin 0.9 mg/dL (0.2-1.0) Aspartate Amino Transf (AST/SGOT) 40 U/L (15-37) Alanine Aminotransferase (ALT/SGPT) 68 U/L (16-63) Alkaline Phosphatase 101 U/L (46-116) Creatine Kinase 53 U/L (39-308) Troponin I Quantitative 0.024 ng/mL (0.000-0.055) DN-Oqa-F-Type Natriuretic Peptide 2595 pg/mL (0-124) Total Protein 7.5 g/dL (6.4-8.2) Albumin 3.5 g/dL (3.4-5.0) Albumin/Globulin Ratio 0.9 (1.0-1.7) Bedside Troponin I 0.02 ng/ml (<0.08) Bedside Hemoglobin 14.3 g/dL (14-18) Bedside Hematocrit 42 % (37-52) Bedside Sodium 140 mmol/L (135-145) Bedside Potassium 4.4 mmol/L (3.5-5.0) Bedside Chloride 100 mmol/L (98-110) Bedside Total CO2 27 mmol/L (23-32) Bedside Blood Urea Nitrogen 13 mg/dL (8-26) Bedside Creatinine 0.9 mg/dL (0.5-1.4) Bedside Ionized Calcium (Lois) 1.21 mmol/L (1.13-1.32) Test 09/06/16 22:35 09/07/16 03:45 09/07/16 04:06 09/07/16 07:25 Lactic Acid Level 2.8 mmol/L (0.4-2.0) Magnesium Level 1.9 mg/dL (1.8-2.4) Troponin I Quantitative 0.030 ng/mL (0.000-0.055) White Blood Count 5.6 x10^3/uL (4.0-11.0) Red Blood Count 4.44 x10^6/uL (4.30-5.70) Hemoglobin 12.2 g/dL (13.0-17.5) Hematocrit 37.7 % (39.0-53.0) Mean Corpuscular Volume 85 fL (79-100) Mean Corpuscular Hemoglobin 27 pg (25-35) Mean Corpuscular Hemoglobin Concent 32 g/dL (31-37) Red Cell Distribution Width 16.2 % (11.5-14.5) Platelet Count 319 x10^3/uL (140-400) Neutrophils (%) (Auto) 58 % (31-73) Lymphocytes (%) (Auto) 30 % (24-48) Monocytes (%) (Auto) 9 % (0-9) Eosinophils (%) (Auto) 2 % (0-3) Basophils (%) (Auto) 1 % (0-3) Neutrophils # (Auto) 3.3 x10^3uL (1.8-7.7) Lymphocytes # (Auto) 1.7 x10^3/uL (1.0-4.8) Monocytes # (Auto) 0.5 x10^3/uL (0.0-1.1) Eosinophils # (Auto) 0.1 x10^3/uL (0.0-0.7) Basophils # (Auto) 0.1 x10^3/uL (0.0-0.2) Sodium Level 140 mmol/L (136-145) Potassium Level 4.4 mmol/L (3.5-5.1) Chloride Level 103 mmol/L (98-107) Carbon Dioxide Level 29 mmol/L (21-32) Anion Gap 8 (6-14) Blood Urea Nitrogen 13 mg/dL (8-26) Creatinine 0.9 mg/dL (0.7-1.3) Estimated GFR (Cockcroft-Gault) 101.5 Glucose Level 137 mg/dL (70-99) Calcium Level 9.5 mg/dL (8.5-10.1) Glucose (Fingerstick) 145 mg/dL (70-99) Test 09/07/16 12:05 Glucose (Fingerstick) 211 mg/dL (70-99) Comment Review of Relevant I have reviewed the following items rashid (where applicable) has been applied. Labs Laboratory Tests Test 09/06/16 18:27 09/06/16 19:45 09/06/16 19:55 09/06/16 19:57 White Blood Count 6.2 x10^3/uL (4.0-11.0) Red Blood Count 4.42 x10^6/uL (4.30-5.70) Hemoglobin 12.3 g/dL (13.0-17.5) Hematocrit 37.6 % (39.0-53.0) Mean Corpuscular Volume 85 fL (79-100) Mean Corpuscular Hemoglobin 28 pg (25-35) Mean Corpuscular Hemoglobin Concent 33 g/dL (31-37) Red Cell Distribution Width 16.6 % (11.5-14.5) Platelet Count 313 x10^3/uL (140-400) Neutrophils (%) (Auto) 66 % (31-73) Lymphocytes (%) (Auto) 22 % (24-48) Monocytes (%) (Auto) 10 % (0-9) Eosinophils (%) (Auto) 1 % (0-3) Basophils (%) (Auto) 1 % (0-3) Neutrophils # (Auto) 4.1 x10^3uL (1.8-7.7) Lymphocytes # (Auto) 1.3 x10^3/uL (1.0-4.8) Monocytes # (Auto) 0.6 x10^3/uL (0.0-1.1) Eosinophils # (Auto) 0.1 x10^3/uL (0.0-0.7) Basophils # (Auto) 0.1 x10^3/uL (0.0-0.2) Prothrombin Time 21.2 SEC (11.7-14.0) Prothromb Time International Ratio 2.0 (0.8-1.1) Activated Partial Thromboplast Time 29 SEC (24-38) Lactic Acid Level 2.9 mmol/L (0.4-2.0) Sodium Level 139 mmol/L (136-145) Potassium Level 4.5 mmol/L (3.5-5.1) Chloride Level 103 mmol/L (98-107) Carbon Dioxide Level 32 mmol/L (21-32) Anion Gap 4 (6-14) 18 mmol/L (6-14) Blood Urea Nitrogen 13 mg/dL (8-26) Creatinine 1.1 mg/dL (0.7-1.3) Estimated GFR (Cockcroft-Gault) 80.5 BUN/Creatinine Ratio 12 (6-20) Glucose Level 168 mg/dL (70-99) 161 mg/dL (70-99) Calcium Level 9.9 mg/dL (8.5-10.1) Magnesium Level 1.9 mg/dL (1.8-2.4) Total Bilirubin 0.9 mg/dL (0.2-1.0) Aspartate Amino Transf (AST/SGOT) 40 U/L (15-37) Alanine Aminotransferase (ALT/SGPT) 68 U/L (16-63) Alkaline Phosphatase 101 U/L (46-116) Creatine Kinase 53 U/L (39-308) Troponin I Quantitative 0.024 ng/mL (0.000-0.055) NN-Aqm-M-Type Natriuretic Peptide 2595 pg/mL (0-124) Total Protein 7.5 g/dL (6.4-8.2) Albumin 3.5 g/dL (3.4-5.0) Albumin/Globulin Ratio 0.9 (1.0-1.7) Bedside Troponin I 0.02 ng/ml (<0.08) Bedside Hemoglobin 14.3 g/dL (14-18) Bedside Hematocrit 42 % (37-52) Bedside Sodium 140 mmol/L (135-145) Bedside Potassium 4.4 mmol/L (3.5-5.0) Bedside Chloride 100 mmol/L (98-110) Bedside Total CO2 27 mmol/L (23-32) Bedside Blood Urea Nitrogen 13 mg/dL (8-26) Bedside Creatinine 0.9 mg/dL (0.5-1.4) Bedside Ionized Calcium (Lois) 1.21 mmol/L (1.13-1.32) Test 09/06/16 22:35 09/07/16 03:45 09/07/16 04:06 09/07/16 07:25 Lactic Acid Level 2.8 mmol/L (0.4-2.0) Magnesium Level 1.9 mg/dL (1.8-2.4) Troponin I Quantitative 0.030 ng/mL (0.000-0.055) White Blood Count 5.6 x10^3/uL (4.0-11.0) Red Blood Count 4.44 x10^6/uL (4.30-5.70) Hemoglobin 12.2 g/dL (13.0-17.5) Hematocrit 37.7 % (39.0-53.0) Mean Corpuscular Volume 85 fL (79-100) Mean Corpuscular Hemoglobin 27 pg (25-35) Mean Corpuscular Hemoglobin Concent 32 g/dL (31-37) Red Cell Distribution Width 16.2 % (11.5-14.5) Platelet Count 319 x10^3/uL (140-400) Neutrophils (%) (Auto) 58 % (31-73) Lymphocytes (%) (Auto) 30 % (24-48) Monocytes (%) (Auto) 9 % (0-9) Eosinophils (%) (Auto) 2 % (0-3) Basophils (%) (Auto) 1 % (0-3) Neutrophils # (Auto) 3.3 x10^3uL (1.8-7.7) Lymphocytes # (Auto) 1.7 x10^3/uL (1.0-4.8) Monocytes # (Auto) 0.5 x10^3/uL (0.0-1.1) Eosinophils # (Auto) 0.1 x10^3/uL (0.0-0.7) Basophils # (Auto) 0.1 x10^3/uL (0.0-0.2) Sodium Level 140 mmol/L (136-145) Potassium Level 4.4 mmol/L (3.5-5.1) Chloride Level 103 mmol/L (98-107) Carbon Dioxide Level 29 mmol/L (21-32) Anion Gap 8 (6-14) Blood Urea Nitrogen 13 mg/dL (8-26) Creatinine 0.9 mg/dL (0.7-1.3) Estimated GFR (Cockcroft-Gault) 101.5 Glucose Level 137 mg/dL (70-99) Calcium Level 9.5 mg/dL (8.5-10.1) Glucose (Fingerstick) 145 mg/dL (70-99) Test 09/07/16 12:05 Glucose (Fingerstick) 211 mg/dL (70-99) Laboratory Tests Test 09/06/16 18:27 09/06/16 19:45 09/06/16 19:55 09/06/16 19:57 White Blood Count 6.2 x10^3/uL (4.0-11.0) Red Blood Count 4.42 x10^6/uL (4.30-5.70) Hemoglobin 12.3 g/dL (13.0-17.5) Hematocrit 37.6 % (39.0-53.0) Mean Corpuscular Volume 85 fL (79-100) Mean Corpuscular Hemoglobin 28 pg (25-35) Mean Corpuscular Hemoglobin Concent 33 g/dL (31-37) Red Cell Distribution Width 16.6 % (11.5-14.5) Platelet Count 313 x10^3/uL (140-400) Neutrophils (%) (Auto) 66 % (31-73) Lymphocytes (%) (Auto) 22 % (24-48) Monocytes (%) (Auto) 10 % (0-9) Eosinophils (%) (Auto) 1 % (0-3) Basophils (%) (Auto) 1 % (0-3) Neutrophils # (Auto) 4.1 x10^3uL (1.8-7.7) Lymphocytes # (Auto) 1.3 x10^3/uL (1.0-4.8) Monocytes # (Auto) 0.6 x10^3/uL (0.0-1.1) Eosinophils # (Auto) 0.1 x10^3/uL (0.0-0.7) Basophils # (Auto) 0.1 x10^3/uL (0.0-0.2) Prothrombin Time 21.2 SEC (11.7-14.0) Prothromb Time International Ratio 2.0 (0.8-1.1) Activated Partial Thromboplast Time 29 SEC (24-38) Lactic Acid Level 2.9 mmol/L (0.4-2.0) Sodium Level 139 mmol/L (136-145) Potassium Level 4.5 mmol/L (3.5-5.1) Chloride Level 103 mmol/L (98-107) Carbon Dioxide Level 32 mmol/L (21-32) Anion Gap 4 (6-14) 18 mmol/L (6-14) Blood Urea Nitrogen 13 mg/dL (8-26) Creatinine 1.1 mg/dL (0.7-1.3) Estimated GFR (Cockcroft-Gault) 80.5 BUN/Creatinine Ratio 12 (6-20) Glucose Level 168 mg/dL (70-99) 161 mg/dL (70-99) Calcium Level 9.9 mg/dL (8.5-10.1) Magnesium Level 1.9 mg/dL (1.8-2.4) Total Bilirubin 0.9 mg/dL (0.2-1.0) Aspartate Amino Transf (AST/SGOT) 40 U/L (15-37) Alanine Aminotransferase (ALT/SGPT) 68 U/L (16-63) Alkaline Phosphatase 101 U/L (46-116) Creatine Kinase 53 U/L (39-308) Troponin I Quantitative 0.024 ng/mL (0.000-0.055) GJ-Pur-A-Type Natriuretic Peptide 2595 pg/mL (0-124) Total Protein 7.5 g/dL (6.4-8.2) Albumin 3.5 g/dL (3.4-5.0) Albumin/Globulin Ratio 0.9 (1.0-1.7) Bedside Troponin I 0.02 ng/ml (<0.08) Bedside Hemoglobin 14.3 g/dL (14-18) Bedside Hematocrit 42 % (37-52) Bedside Sodium 140 mmol/L (135-145) Bedside Potassium 4.4 mmol/L (3.5-5.0) Bedside Chloride 100 mmol/L (98-110) Bedside Total CO2 27 mmol/L (23-32) Bedside Blood Urea Nitrogen 13 mg/dL (8-26) Bedside Creatinine 0.9 mg/dL (0.5-1.4) Bedside Ionized Calcium (Lois) 1.21 mmol/L (1.13-1.32) Test 09/06/16 22:35 09/07/16 03:45 09/07/16 04:06 09/07/16 07:25 Lactic Acid Level 2.8 mmol/L (0.4-2.0) Magnesium Level 1.9 mg/dL (1.8-2.4) Troponin I Quantitative 0.030 ng/mL (0.000-0.055) White Blood Count 5.6 x10^3/uL (4.0-11.0) Red Blood Count 4.44 x10^6/uL (4.30-5.70) Hemoglobin 12.2 g/dL (13.0-17.5) Hematocrit 37.7 % (39.0-53.0) Mean Corpuscular Volume 85 fL (79-100) Mean Corpuscular Hemoglobin 27 pg (25-35) Mean Corpuscular Hemoglobin Concent 32 g/dL (31-37) Red Cell Distribution Width 16.2 % (11.5-14.5) Platelet Count 319 x10^3/uL (140-400) Neutrophils (%) (Auto) 58 % (31-73) Lymphocytes (%) (Auto) 30 % (24-48) Monocytes (%) (Auto) 9 % (0-9) Eosinophils (%) (Auto) 2 % (0-3) Basophils (%) (Auto) 1 % (0-3) Neutrophils # (Auto) 3.3 x10^3uL (1.8-7.7) Lymphocytes # (Auto) 1.7 x10^3/uL (1.0-4.8) Monocytes # (Auto) 0.5 x10^3/uL (0.0-1.1) Eosinophils # (Auto) 0.1 x10^3/uL (0.0-0.7) Basophils # (Auto) 0.1 x10^3/uL (0.0-0.2) Sodium Level 140 mmol/L (136-145) Potassium Level 4.4 mmol/L (3.5-5.1) Chloride Level 103 mmol/L (98-107) Carbon Dioxide Level 29 mmol/L (21-32) Anion Gap 8 (6-14) Blood Urea Nitrogen 13 mg/dL (8-26) Creatinine 0.9 mg/dL (0.7-1.3) Estimated GFR (Cockcroft-Gault) 101.5 Glucose Level 137 mg/dL (70-99) Calcium Level 9.5 mg/dL (8.5-10.1) Glucose (Fingerstick) 145 mg/dL (70-99) Test 09/07/16 12:05 Glucose (Fingerstick) 211 mg/dL (70-99) Medications Current Medications Nitroglycerin (Nitrostat) 0.4 mg PRN Q5MIN PRN SL CHEST PAIN; Start 09/06/16 at 18:15 Lorazepam (Ativan) 1 mg 1X ONCE IV Last administered on 09/06/16 18:15; Start 09/06/16 at 18:15; Stop 09/06/16 at 18:16; Status DC Nitroglycerin (Nitro-Bid Oint) 1 inch 1X ONCE TP Last administered on 18:15; Start 09/06/16 at 18:15; Stop 09/06/16 at 18:16; Status DC Furosemide (Lasix) 20 mg 1X ONCE IVP Last administered on 09/06/16 18:15; Start 09/06/16 at 18:15; Stop 09/06/16 at 18:16; Status DC Ondansetron HCl (Zofran) 4 mg PRN Q8HRS PRN IV NAUSEA/VOMITING; Start 09/06/16 at 20:45; Stop 09/07/16 at 20:44 Acetaminophen/ Codeine Phosphate (Tylenol #3) 1 tab PRN Q4HRS PRN PO moderate PAIN Last administered on 09/07/16 09:18; Start 09/06/16 at 22:15 Lisinopril (Prinivil) 10 mg BID PO ; Start 09/07/16 at 09:00; Stop 09/07/16 at 09:00; Status DC Simvastatin (Zocor) 10 mg QHS PO Last administered on 09/06/16 22:44; Start at 23:00 Tramadol HCl (Ultram) 50 mg BID PO Last administered on 09/07/16 09:19; Start 09/06/16 at 23:00 Warfarin Sodium (Coumadin) 4 mg DAILY16 PO ; Start 09/07/16 at 16:00 Carvedilol (Coreg) 25 mg BIDWMEALS PO ; Start 09/07/16 at 08:00; Stop 09/07/16 at 08:00; Status DC Duloxetine HCl (Cymbalta) 60 mg BID PO Last administered on 09/07/16 09:19; Start 09/06/16 at 23:00 Gabapentin (Neurontin) 300 mg TID PO ; Start 09/07/16 at 09:00; Stop 09/07/16 at 09:00; Status DC Meclizine HCl (Antivert) 25 mg PRN BID PRN PO DIZZINESS; Start 09/06/16 at 22: 30 Warfarin Sodium (Coumadin Per Physician) 1 each PRN DAILY PRN MC SEE COMMENTS Last administered on 09/07/16 01:15; Start 09/06/16 at 22:45 Carvedilol (Coreg) 25 mg BIDWMEALS PO Last administered on 09/07/16 09:20; Start 09/06/16 at 23:00 Gabapentin (Neurontin) 300 mg TID PO Last administered on 09/07/16 09:45; Start 09/06/16 at 23:00 Lisinopril (Prinivil) 10 mg BID PO Last administered on 09/07/16 09:19; Start 09/06/16 at 23:00 Furosemide (Lasix) 20 mg 1X ONCE IVP Last administered on 09/07/16 06:12; Start 09/07/16 at 04:00; Stop 09/07/16 at 04:01; Status DC Aspirin (Ecotrin) 81 mg DAILYWBKFT PO ; Start 09/07/16 at 09:00 Furosemide (Lasix) 40 mg 1X ONCE IVP Last administered on 09/07/16t 11:02; Start 09/07/16 at 11:00; Stop 09/07/16 at 11:01; Status DC Active Scripts Active Meclizine Hcl 25 Mg Tablet 25 Mg PO BID PRN Augmentin 875-125 Tablet (Amoxicillin/Potassium Clav) 1 Each Tablet 1 Tab PO BID Reported Gabapentin 300 Mg Capsule 300 Mg PO TID Warfarin Sodium 4 Mg Tablet 4 Mg PO DAILY Tramadol Hcl 50 Mg Tablet 1 Tab PO BID Lisinopril 10 Mg Tablet 10 Mg PO BID Metformin Hcl 1,000 Mg Tablet 1 Tab PO BID Carvedilol 25 Mg Tablet 1 Tab PO BID Indapamide 1.25 Mg Tablet 1 Tab PO DAILY Cymbalta (Duloxetine Hcl) 60 Mg Capsule.dr 1 Cap PO BID Warfarin Sodium 4 Mg Tablet 1 Tab PO DAILY Simvastatin 10 Mg Tablet 1 Tab PO QHS Acetaminophen-Cod #3 Tablet (Acetaminophen/Codeine Phosphate) 1 Each Tablet 1 Tab PO PRN Q4HRS PRN Vitals/I & O Vital Sign - Last 24 Hours 09/06/16 09/06/16 09/06/16 09/06/16 17:55 18:15 18:25 18:45 Temp 97.7 97.7 Pulse 110 110 110 Resp 26 28 B/P (MAP) 144/101 (115) 171/91 171/91 (117) Pulse Ox 96 100 100 O2 Delivery Room Air BiPAP/CPAP 09/06/16 09/06/16 09/06/16 09/06/16 19:30 20:30 20:45 21:51 Temp 97.5 97.5 Pulse 110 110 112 Resp 22 21 B/P (MAP) 170/91 (117) 174/101 (125) 161/116 (131) Pulse Ox 95 95 94 O2 Delivery Room Air Room Air Room Air Room Air 09/06/16 09/06/16 09/06/16 09/06/16 22:23 22:44 22:44 22:45 Temp 97.9 97.9 Pulse 109 109 109 Resp 18 B/P (MAP) 144/110 (121) 144/110 144/110 Pulse Ox 94 94 O2 Delivery Room Air 09/06/16 09/07/16 09/07/16 09/07/16 23:00 02:47 07:00 08:20 Temp 98.0 98.1 98.0 98.1 Pulse 110 109 Resp 21 20 B/P (MAP) 149/112 (124) 133/102 (112) Pulse Ox 100 100 96 O2 Delivery BiPAP/CPAP BiPAP/CPAP Room Air Room Air 09/07/16 09/07/16 09/07/16 09/07/16 09:18 09:19 09:19 09:20 Pulse 109 109 B/P (MAP) 133/102 133/102 Pulse Ox 96 96 O2 Delivery Room Air Room Air 09/07/16 09/07/16 09/07/16 10:27 10:27 11:00 Temp 97.9 97.9 Pulse 104 Resp 20 B/P (MAP) 138/90 (106) Pulse Ox 96 96 88 O2 Delivery Room Air Room Air Room Air Intake and Output 09/06/16 09/06/16 09/07/16 15:00 23:00 07:00 Intake Total 400 ml Output Total 400 ml Balance 0 ml NANCY KING MD September 07, 2016 12:42
[2016-09-07 12:57] LABS: CHOLESTEROL/HDL RATIO 4.2
--- NOTE | 2016-09-07 14:45 | CARD ---
APPROVED REPORT EXAM: Two-dimensional and M-mode echocardiogram with Doppler and color Doppler. Other Information Quality : FairHR: 105bpm Rhythm : Tachycardia INDICATION Congestive Heart Failure RISK FACTORS Obesity 2D DIMENSIONS RVDd3.2 (2.9-3.5cm)Left Atrium(2D)5.4 (1.6-4.0cm) IVSd1.2 (0.7-1.1cm)Aortic Root(2D)3.3 (2.0-3.7cm) LVDd6.2 (3.9-5.9cm)LVOT Diameter2.4 (1.8-2.4cm) LVDs5.7 (2.5-4.0cm)FS (%) 7.8 % SV32.8 mlLVEF(%)16.9 (>50%) Aortic Valve AoV Peak Servando.86.8cm/sAoV VTI15.5cm AO Peak GR.3.0mmHgLVOT Peak Servando.68.1cm/s LVOT VTI 13.10cmAO Mean GR.2mmHg ALMA (VMAX)2.73yj3VOY (VTI)3.94cm2 Mitral Valve MV E Lnffrapr26.5cm/sMV E Peak Gr.98mmHg MV DECEL [id number] A Mekcgxgp82.5cm/s MV NSP71ehB/A Ratio2.0 MV A Pvnpzzit56suRTY (PHT)5.20cm2 TDI E/Lateral E'6.4E/Medial E'7.9 Pulmonary Valve PV Peak Mkzylhdg43.1cm/sPV Peak Grad.3mmHg Tricuspid Valve TR P. Onjqgpbm751fh/sTR Peak Gr.55mmHg Pulmonary Vein S1 Zevkhgrj72.7cm/sD2 Zuetykvv32.0cm/s PVa ohsleaim06orso LEFT VENTRICLE The Left Ventricle is mildly dilated. There is mild concentric left ventricular hypertrophy. Left dion tricle systolic function is severely impaired. The Ejection Fraction is 15-20%. Abnormal septal motio n is noted. There is severe global hypokinesis of the left ventricle. Transmitral Doppler flow patter n is Grade IV-fixed restrictive diastolic dysfunction. No left ventricle thrombus noted on this study . RIGHT VENTRICLE The right ventricle is normal size. There is normal right ventricular wall thickness. Systolic functi on is moderately reduced. ATRIA The left atrium is moderately dilated. The right atrium is mildly dilated. The interatrial septum is intact with no evidence for an atrial septal defect or patent foramen ovale as noted on 2-D or Dopple r imaging. AORTIC VALVE The aortic valve is mildly thickened. The aortic valve is trileaflet. Doppler and Color Flow revealed no significant aortic regurgitation. There is no significant aortic valvular stenosis. MITRAL VALVE The mitral valve leaflets are mildly thickened. There is no evidence of mitral valve prolapse. There is no mitral valve stenosis. Doppler and Color Flow revealed moderate mitral regurgitation. TRICUSPID VALVE Doppler and Color Flow revealed moderate tricuspid regurgitation.The pulmonary artery systolic pressu re is estimated at 70 mmHg. There is severe pulmonary hypertension. PULMONIC VALVE Doppler and Color Flow revealed trace pulmonic valvular regurgitation. There is no pulmonic valvular stenosis. GREAT VESSELS The aortic root is normal in size. The ascending aorta is normal in size. The pulmonary artery is nor mal. The IVC is dilated and collapses >50% with inspiration. PERICARDIAL EFFUSION There is no evidence of significant pericardial effusion. Critical Notification Date: 09/07/2016 Time: 10:19 Critical Value: Yes <Conclusion> Left ventricle systolic function is severely impaired. The Ejection Fraction is 15-20%. Abnormal septal motion is noted. There is severe global hypokinesis of the left ventricle. RV Systolic function is moderately reduced. Doppler and Color Flow revealed moderate mitral regurgitation. Doppler and Color Flow revealed moderate tricuspid regurgitation.The pulmonary artery systolic pressu re is estimated at 70 mmHg. There is severe pulmonary hypertension.
[2016-09-07 15:00] VITALS: BP 162/113
[2016-09-07] MEDS ORDERED: WARFARIN 4 MG TABLET. PO SCH (16:00)
[2016-09-07] MEDS: INSULIN ASPART 300 UNITS/3 ML INSULN.PEN SQ SCH (17:00)
[2016-09-07] MEDS ORDERED: DEXTROSE 50% 25 GM / 50ML DISP.SYRIN. IV PRN (17:00)
[2016-09-07] MEDS: FUROSEMIDE 40 MG/4 ML VIAL. IVP SCH (18:00)
[2016-09-07] MEDS: SIMVASTATIN 10 MG TABLET PO SCH (21:28)
[2016-09-07 21:30] VITALS: BP 155/102
--- NOTE | 2016-09-08 01:52 | EKG ---
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
[2016-09-08 03:00] VITALS: BP 149/101
[2016-09-08 04:00] LABS: CALCIUM 9.8 mg/dL (8.5-10.1); CREATININE 1.1 mg/dL (0.7-1.3); GFR 80.5; MAGNESIUM 1.9 mg/dL (1.8-2.4); POTASSIUM 3.8 mmol/L (3.5-5.1)
[2016-09-08 07:00] VITALS: BP 159/121
[2016-09-08 07:17] LABS: INR 1.8 (0.8-1.1); PROTHROMBIN TIME PATIENT 19.8 SEC (11.7-14.0)
[2016-09-08] MEDS: ASPIRIN ENTERIC COATED 81 MG TABLET.DR. PO SCH (08:00)
[2016-09-08] MEDS: INSULIN ASPART 300 UNITS/3 ML INSULN.PEN SQ SCH ×3 (08:00→17:00)
--- NOTE | 2016-09-08 08:09 | EKG ---
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
[2016-09-08] MEDS: FUROSEMIDE 40 MG/4 ML VIAL. IVP SCH ×2 (08:53→18:00)
[2016-09-08] MEDS: traMADol 50 MG TABLET PO SCH ×2 (08:54→20:50)
[2016-09-08] MEDS: DULoxetine HCL 30 MG CAPSULE.DR PO SCH ×2 (08:54→20:50)
[2016-09-08] MEDS: LISINOPRIL 10 MG TABLET PO SCH (08:54)
[2016-09-08] MEDS: CARVEDILOL 12.5 MG TABLET. PO SCH (08:55)
[2016-09-08] MEDS: GABAPENTIN 300 MG CAPSULE. PO SCH ×3 (08:56→20:49)
[2016-09-08 11:00] VITALS: BP 157/91
--- NOTE | 2016-09-08 12:42 | PDOC ---
PROGRESS NOTES Chief Complaint Chief Complaint Acute respir failure ASSESSMENT AND PLAN: 1. CHF exacerbation: systolic (EF 20%); prob 2/2 missed meds at home for several days. appreciate cardiology service input. lasix IV 2. afib/flutter: new since last night. asymptomatic. dig as per cards 3. Chest pain: ACS r/o with serial enzymes. no recurrence 3. HTN: on home YANIRA-I, BB 4. HLD: on statin 5. DM2: on metformin at home, hold for now. ISS 6. 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 also has IVC filter 7. Morbid obesity: BMI 45, causing hypoventilation induced chronic hypoxia as well 8. ROSEANN: CPAP at home, BiPAP her at nite and PRN 9. DISPO: no plans for immediate D/C! although clinically improved, with new cards findings, monitor for another 24(+) hrs. pt agreeable History of Present Illness History of Present Illness better today, breathing easier. states he is going home this PM. Vitals Vitals Vital Signs Date Time Temp Pulse Resp B/P (MAP) Pulse Ox O2 Delivery O2 Flow Rate FiO2 09/08/16 11:00 98.0 109 20 157/91 (113) 90 98.0 09/08/16 10:06 Nasal Cannula 1.0 Physical Exam General: Alert, Oriented X3, Cooperative, No acute distress Heart: Regular rate, Other (distant heart sounds; 3/6 systolic murmur to LLS border) Lungs: Crackles Abdomen: Soft, Other (massively obese) Extremities: No cyanosis, Other (2+ bilateral LE pitting edema) Skin: No breakdown, No significant lesion Labs LABS Laboratory Tests Test 09/08/16 01:45 09/08/16 06:52 09/08/16 07:38 09/08/16 11:50 Sodium Level 138 mmol/L (136-145) Potassium Level 3.8 mmol/L (3.5-5.1) Chloride Level 101 mmol/L (98-107) Carbon Dioxide Level 24 mmol/L (21-32) Anion Gap 13 (6-14) Blood Urea Nitrogen 13 mg/dL (8-26) Creatinine 1.1 mg/dL (0.7-1.3) Estimated GFR (Cockcroft-Gault) 80.5 Glucose Level 150 mg/dL (70-99) Calcium Level 9.8 mg/dL (8.5-10.1) Magnesium Level 1.9 mg/dL (1.8-2.4) Troponin I Quantitative 0.024 ng/mL (0.000-0.055) Prothrombin Time 19.8 SEC (11.7-14.0) Prothromb Time International Ratio 1.8 (0.8-1.1) Glucose (Fingerstick) 116 mg/dL (70-99) 223 mg/dL (70-99) NANCY KING MD September 08, 2016 12:42
[2016-09-08] MEDS ORDERED: DIGOXIN IV 500 MCG/2 ML AMPUL. IV ONE (12:45)
--- NOTE | 2016-09-08 12:49 | PDOC ---
GUSTAVO WEBER NON LICENSED NUCLEAR PLANT OPERATOR 09/08/16 1249: CARDIO Progress Notes Date and Time Date of Service 09/08/2016 Time of Evaluation 1220 Subjective Subjective: No Chest Pain, No Palpitations, No Dizziness, Other (mild SOA) Vitals Vitals Vital Signs Date Time Temp Pulse Resp B/P (MAP) Pulse Ox O2 Delivery O2 Flow Rate FiO2 09/08/16 11:00 98.0 109 20 157/91 (113) 90 98.0 09/08/16 10:06 Nasal Cannula 1.0 Weight Weight [ ] Input and Output Intake and Output Intake and Output 09/08/16 07:00 Intake Total 1550 ml Output Total 6875 ml Balance -5325 ml Intake Oral 1550 ml Output Urine Total 6875 ml Laboratory Labs Laboratory Tests Test 09/08/16 01:45 09/08/16 06:52 09/08/16 07:38 09/08/16 11:50 Sodium Level 138 mmol/L (136-145) Potassium Level 3.8 mmol/L (3.5-5.1) Chloride Level 101 mmol/L (98-107) Carbon Dioxide Level 24 mmol/L (21-32) Anion Gap 13 (6-14) Blood Urea Nitrogen 13 mg/dL (8-26) Creatinine 1.1 mg/dL (0.7-1.3) Estimated GFR (Cockcroft-Gault) 80.5 Glucose Level 150 mg/dL (70-99) Calcium Level 9.8 mg/dL (8.5-10.1) Magnesium Level 1.9 mg/dL (1.8-2.4) Troponin I Quantitative 0.024 ng/mL (0.000-0.055) Prothrombin Time 19.8 SEC (11.7-14.0) Prothromb Time International Ratio 1.8 (0.8-1.1) Glucose (Fingerstick) 116 mg/dL (70-99) 223 mg/dL (70-99) Physical Exam HEENT: Neck Supple W Full Motion Chest: Symmetric LUNGS: Other (diminished bases) Heart: S1S2, RRR (Regular atrial flutter) Abdomen: Soft N/T, Other (obese) Extremities: No Calf Tenderness, Other (1+ bilateral LE pitting edema) Neurology: alert, oriented, follow commands Assessment Assessment 1. Acute on chronic systolic CHF: due to missed meds, uncontrolled HTN. 2. Cardiomyopathy: Known for NICM (2013). EF 11/22/2015 was 40-45%, and currently is 15-20% (lowest per review) 3. CAD: Mild per records review (2013) per pt last LHC was 8 yrs ago, no stents. Troponin series normal. Currently CP free MPI 08/22/2013 negative for inducible ischemia. ventricle with mild dilation * moderate LV dysfunction with EF of 37% with global hypokinesis * small fixed perfusion defect to inferior wall, felt to be due to underlying attenuation defect 4. Paroxysmal atrial flutter: RVR. currently 2:1 conduction 110s NEW. Could have contributed to acute CHF and reduced EF 5. HTN: labile 6. DM2/HLP 7. Hx of PE/DVT/IVC filter with chronic anticoagulation: coumadin with INR at 2.0. 7. Morbid obesity: BMI 45 8. ROSEANN with severe pulmonary HTN: Bipap at home 9. Suspect underlying COPD Recommendations 1. PCXR 2. Continue with lasix therapy. 3. Continue on bipap at hs and prn 4. Has refused LHC and wants to follow up with his outpt real estate sales manager and to further discuss. 5. Continue with secondary prevention measures. 6. Coumadin in place. Will convert coreg to lopressor. Dig IV. 7. Discussed treatment adherence and optimization plan 8. Lopressor IV x1. Increase lisinopril 9. Will consider for lifevest if pt agrees 10. Significant discussion in regards to treatment plan but pt hesitant with any procedures. 11. Will likely need O2 going home, 6 minute walk pending. 12. Consult pulmonary if ok with pcp MARINA TIWARI MD 09/09/16 0820: CARDIO Progress Notes Plan Plan Late entry for 09/08/2016. Pt. seen and examined. Agree with above TRANSPORTATION CONSULTANT note. Patient has changed his mind and wants further treatment here. Will continue to titrate BP/HR agents. Continue diuresis. We will plan for possible LHC inpt versus outpt based on symptoms. Will follow along. GUSTAVO WEBER APRN September 08, 2016 12:49 MARINA TIWARI MD September 09, 2016 08:20
[2016-09-08] MEDS ORDERED: METOPROLOL TARTRATE 5 MG/5 ML VIAL. IVP ONE (13:00)
[2016-09-08] MEDS ORDERED: LISINOPRIL 10 MG TABLET PO ONE (13:15)
--- NOTE | 2016-09-08 13:21 | RAD ---
Indication shortness of breath. A single view of the chest was obtained. Comparison is made to a study 2 days previously. There is unchanged cardiomegaly. Changes of congestive heart failure seen previously are improved slightly. Aeration of the right lower lobe has improved. A new finding in the chest is not seen. IMPRESSION: Slight interval improvement in the appearance of the chest
[2016-09-08 15:00] VITALS: BP 151/96
[2016-09-08] MEDS ORDERED: WARFARIN 6 MG TABLET. PO ONE (16:00)
[2016-09-08 19:40] VITALS: BP 155/95
[2016-09-08] MEDS: METOPROLOL TART IMMED RELEASE 50 MG TABLET. PO SCH (20:49)
[2016-09-08] MEDS: SIMVASTATIN 10 MG TABLET PO SCH (20:50)
[2016-09-08 23:32] VITALS: BP 146/71
[2016-09-09 03:03] VITALS: BP 146/88
[2016-09-09 05:29] LABS: BASO % 1 % (0-3); EOS % 3 % (0-3); HEMATOCRIT 39.6 % (39.0-53.0); HEMOGLOBIN 12.6 g/dL (13.0-17.5); LYMPH # 1.4 x10^3/uL (1.0-4.8); LYMPH % 22 % (24-48); MEAN CORPUSCULAR HEMOGLOBIN 28 pg (25-35); MEAN CORPUSCULAR HGB CONC 32 g/dL (31-37); MEAN CORPUSCULAR VOLUME 86 fL (79-100); MONO % 11 % (0-9); NEUT % 63 % (31-73); PLATELET COUNT 281 x10^3/uL (140-400); RED BLOOD COUNT 4.58 x10^6/uL (4.30-5.70); RED CELL DISTRIBUTION WIDTH 15.7 % (11.5-14.5); WHITE BLOOD COUNT 6.6 x10^3/uL (4.0-11.0)
[2016-09-09 05:31] LABS: CALCIUM 9.4 mg/dL (8.5-10.1); GFR 89.9; MAGNESIUM 1.8 mg/dL (1.8-2.4); POTASSIUM 3.1 mmol/L (3.5-5.1)
[2016-09-09 05:51] LABS: INR 1.7 (0.8-1.1); PROTHROMBIN TIME PATIENT 18.7 SEC (11.7-14.0)
[2016-09-09 07:30] VITALS: BP 152/92
[2016-09-09] MEDS ORDERED: POTASSIUM CHLORIDE 20 MEQ TABLET.ER. PO ONE ×2 (08:30→12:30)
[2016-09-09] MEDS: ASPIRIN ENTERIC COATED 81 MG TABLET.DR. PO SCH (08:40)
[2016-09-09] MEDS: DULoxetine HCL 30 MG CAPSULE.DR PO SCH ×2 (08:41→21:02)
[2016-09-09] MEDS: GABAPENTIN 300 MG CAPSULE. PO SCH ×3 (08:41→21:02)
[2016-09-09] MEDS: METOPROLOL TART IMMED RELEASE 50 MG TABLET. PO SCH (08:41)
[2016-09-09] MEDS: FUROSEMIDE 40 MG/4 ML VIAL. IVP SCH ×2 (08:41→18:36)
[2016-09-09] MEDS: LISINOPRIL 40 MG TABLET. PO SCH (08:42)
[2016-09-09] MEDS: traMADol 50 MG TABLET PO SCH ×2 (08:42→21:02)
[2016-09-09] MEDS: INSULIN ASPART 300 UNITS/3 ML INSULN.PEN SQ SCH ×3 (08:56→17:00)
--- NOTE | 2016-09-09 09:59 | PDOC ---
BRENTONALEJANDRO Bryanna CLERICAL CAR CHECKER 09/09/16 0958: CARDIO Progress Notes Date and Time Date of Service 09/09/2016 Time of Evaluation 0955 Subjective Subjective: No Chest Pain, No Palpitations, No Dizziness Vitals Vitals Vital Signs Date Time Temp Pulse Resp B/P (MAP) Pulse Ox O2 Delivery O2 Flow Rate FiO2 09/09/16 08:42 94 152/92 09/09/16 08:42 95 Nasal Cannula 2.0 09/09/16 07:30 97.8 21 97.8 Weight Weight [ ] Input and Output Intake and Output Intake and Output 09/09/16 07:00 Intake Total 1220 ml Output Total 4650 ml Balance -3430 ml Intake Oral 1220 ml Output Urine Total 4650 ml Laboratory Labs Laboratory Tests Test 09/08/16 11:50 09/08/16 17:46 09/08/16 21:03 09/09/16 04:40 Glucose (Fingerstick) 223 mg/dL (70-99) 180 mg/dL (70-99) 244 mg/dL (70-99) White Blood Count 6.6 x10^3/uL (4.0-11.0) Red Blood Count 4.58 x10^6/uL (4.30-5.70) Hemoglobin 12.6 g/dL (13.0-17.5) Hematocrit 39.6 % (39.0-53.0) Mean Corpuscular Volume 86 fL (79-100) Mean Corpuscular Hemoglobin 28 pg (25-35) Mean Corpuscular Hemoglobin Concent 32 g/dL (31-37) Red Cell Distribution Width 15.7 % (11.5-14.5) Platelet Count 281 x10^3/uL (140-400) Neutrophils (%) (Auto) 63 % (31-73) Lymphocytes (%) (Auto) 22 % (24-48) Monocytes (%) (Auto) 11 % (0-9) Eosinophils (%) (Auto) 3 % (0-3) Basophils (%) (Auto) 1 % (0-3) Neutrophils # (Auto) 4.2 x10^3uL (1.8-7.7) Lymphocytes # (Auto) 1.4 x10^3/uL (1.0-4.8) Monocytes # (Auto) 0.8 x10^3/uL (0.0-1.1) Eosinophils # (Auto) 0.2 x10^3/uL (0.0-0.7) Basophils # (Auto) 0.0 x10^3/uL (0.0-0.2) Prothrombin Time 18.7 SEC (11.7-14.0) Prothromb Time International Ratio 1.7 (0.8-1.1) Sodium Level 139 mmol/L (136-145) Potassium Level 3.1 mmol/L (3.5-5.1) Chloride Level 100 mmol/L (98-107) Carbon Dioxide Level 33 mmol/L (21-32) Anion Gap 6 (6-14) Blood Urea Nitrogen 14 mg/dL (8-26) Creatinine 1.0 mg/dL (0.7-1.3) Estimated GFR (Cockcroft-Gault) 89.9 Glucose Level 195 mg/dL (70-99) Calcium Level 9.4 mg/dL (8.5-10.1) Magnesium Level 1.8 mg/dL (1.8-2.4) Test 09/09/16 07:42 Glucose (Fingerstick) 171 mg/dL (70-99) Physical Exam HEENT: Neck Supple W Full Motion Chest: Symmetric LUNGS: Other (expiratory wheezing posteriorly throughout) Heart: S1S2, irregularly irregular, other (tele: atrial fib/flutter/RVR) Abdomen: Soft N/T, Other (obese) Extremities: Other (1+ bilateral LE pitting edema) Neurology: alert, oriented, follow commands Assessment Assessment 1. Acute on chronic systolic CHF NYHA class 3 continue medical management 2. Non-ischemic cardiomyopathy LVEF depressed @ 15-20% has now decided to pursue further treatment here rather than [facility] ? of timing for LHC for further evaluation continue medical management for now ? LifeVest candidate 3. CAD no anginal symptoms previous LHC about 8 years ago without PCI medical management 4.atrial fib/flutter rates > 100 treat hypokalemia and hypomagnesemia dig 0.250 mg IV X 1 today ( 500 mcg dose yesterday) on warfarin for stroke prevention - INR 1.7 5. HTN systolic in the 140s to 150s continue medical management 6. HLD LDLs = 82 on statin therapy MARINA TIWARI MD 09/09/16 1056: CARDIO Progress Notes Plan Plan Pt. seen and examined. Agree with above LOCUM TENENS PSYCHIATRIST note. No acute events. Diuresed well on Lasix IV bid. Meds changed today. Stopped Metoprolol Tartrate, given XL. Start amlodipine Hold dig given possible interaction with coumadin intermediate card tender. Will continue diuresis hold coumadin for now in anticipation of cath on sunday, otherwise, continue supportive care May ultimately benefit from cardioversion on an outpt basis after HF stabilization. ALEJANDRO FARRIS APRN September 09, 2016 09:58 MARINA TIWARI MD September 09, 2016 10:56
[2016-09-09] MEDS ORDERED: DIGOXIN IV 500 MCG/2 ML AMPUL. IV ONE (10:30)
[2016-09-09] MEDS ORDERED: MAGNESIUM SULFATE 2GM 50 ML IV ONE (10:30)
[2016-09-09] MEDS ORDERED: amLODIPine BESYLATE 5 MG TABLET PO ONE (11:00)
[2016-09-09 11:37] VITALS: BP 169/99
--- NOTE | 2016-09-09 13:00 | PDOC ---
PROGRESS NOTES Chief Complaint Chief Complaint Acute respir failure ASSESSMENT AND PLAN: 1. CHF exacerbation: systolic (EF 20%); prob 2/2 missed meds at home for several days. appreciate cardiology service input. cont lasix IV 2. afib/flutter: new since last night. asymptomatic. dig as per cards 3. Chest pain: ACS r/o with serial enzymes. no recurrence. plan for cath on Sunday 3. HTN: on home YANIRA-I, BB 4. HLD: on statin 5. DM2: fluctuating some during the day. on metformin at home, hold for now. ISS to cover 6. 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 also has IVC filter 7. Morbid obesity: BMI 45, causing hypoventilation induced chronic hypoxia as well 8. ROSEANN: CPAP at home, BiPAP her at nite and PRN History of Present Illness History of Present Illness respir status improving. no cough Vitals Vitals Vital Signs Date Time Temp Pulse Resp B/P (MAP) Pulse Ox O2 Delivery O2 Flow Rate FiO2 09/09/16 11:37 98.0 90 20 169/99 (122) Nasal Cannula 98.0 09/09/16 09:40 95 2.0 Physical Exam General: Alert, Oriented X3, Cooperative, No acute distress Heart: Regular rate, Other (distant heart sounds; 3/6 systolic murmur to LLS border) Lungs: Clear Abdomen: Normal bowel sounds, Soft, Other (massively obese) Extremities: No cyanosis, Other (2+ bilateral LE pitting edema) Skin: No breakdown, No significant lesion Labs LABS Laboratory Tests Test 09/08/16 17:46 09/08/16 21:03 09/09/16 04:40 09/09/16 07:42 Glucose (Fingerstick) 180 mg/dL (70-99) 244 mg/dL (70-99) 171 mg/dL (70-99) White Blood Count 6.6 x10^3/uL (4.0-11.0) Red Blood Count 4.58 x10^6/uL (4.30-5.70) Hemoglobin 12.6 g/dL (13.0-17.5) Hematocrit 39.6 % (39.0-53.0) Mean Corpuscular Volume 86 fL (79-100) Mean Corpuscular Hemoglobin 28 pg (25-35) Mean Corpuscular Hemoglobin Concent 32 g/dL (31-37) Red Cell Distribution Width 15.7 % (11.5-14.5) Platelet Count 281 x10^3/uL (140-400) Neutrophils (%) (Auto) 63 % (31-73) Lymphocytes (%) (Auto) 22 % (24-48) Monocytes (%) (Auto) 11 % (0-9) Eosinophils (%) (Auto) 3 % (0-3) Basophils (%) (Auto) 1 % (0-3) Neutrophils # (Auto) 4.2 x10^3uL (1.8-7.7) Lymphocytes # (Auto) 1.4 x10^3/uL (1.0-4.8) Monocytes # (Auto) 0.8 x10^3/uL (0.0-1.1) Eosinophils # (Auto) 0.2 x10^3/uL (0.0-0.7) Basophils # (Auto) 0.0 x10^3/uL (0.0-0.2) Prothrombin Time 18.7 SEC (11.7-14.0) Prothromb Time International Ratio 1.7 (0.8-1.1) Sodium Level 139 mmol/L (136-145) Potassium Level 3.1 mmol/L (3.5-5.1) Chloride Level 100 mmol/L (98-107) Carbon Dioxide Level 33 mmol/L (21-32) Anion Gap 6 (6-14) Blood Urea Nitrogen 14 mg/dL (8-26) Creatinine 1.0 mg/dL (0.7-1.3) Estimated GFR (Cockcroft-Gault) 89.9 Glucose Level 195 mg/dL (70-99) Calcium Level 9.4 mg/dL (8.5-10.1) Magnesium Level 1.8 mg/dL (1.8-2.4) NANCY KING MD September 09, 2016 12:59
[2016-09-09 15:00] VITALS: BP 126/82
[2016-09-09] MEDS ORDERED: WARFARIN 6 MG TABLET. PO ONE (16:00)
[2016-09-09] MEDS: METOPROLOL SUCC 24HR ER 100 MG TAB.ER.24H. PO SCH (16:48)
[2016-09-09 19:00] VITALS: BP 125/90
[2016-09-09] MEDS: SIMVASTATIN 10 MG TABLET PO SCH (21:01)
[2016-09-09 23:30] VITALS: BP 118/84
[2016-09-10 03:55] VITALS: BP 143/93
[2016-09-10] MEDS: FUROSEMIDE 40 MG/4 ML VIAL. IVP SCH ×2 (06:56→17:40)
[2016-09-10 07:00] VITALS: BP 126/87
[2016-09-10] MEDS: INSULIN ASPART 300 UNITS/3 ML INSULN.PEN SQ SCH ×3 (08:00→17:00)
--- NOTE | 2016-09-10 08:15 | PDOC ---
Provider Note Provider Note No acute events. Diuresed well. No changes on exam. Labs reviewed. K 3.1 Warfarin held in anticipation of cath Plan -Will plan for cath tomorrow -NPO at midnight. -Will also likely benefit from OPAL/CVN after heart cath. Thanks MARINA TIWARI MD September 10, 2016 08:15
[2016-09-10] MEDS: POTASSIUM CHLORIDE 20 MEQ TABLET.ER. PO SCH ×2 (08:59→11:14)
[2016-09-10] MEDS: LISINOPRIL 40 MG TABLET. PO SCH (08:59)
[2016-09-10] MEDS: GABAPENTIN 300 MG CAPSULE. PO SCH ×3 (08:59→20:39)
[2016-09-10] MEDS: traMADol 50 MG TABLET PO SCH ×2 (09:00→20:39)
[2016-09-10] MEDS: DULoxetine HCL 30 MG CAPSULE.DR PO SCH ×2 (09:00→20:39)
[2016-09-10] MEDS: amLODIPine BESYLATE 10 MG TABLET PO SCH (09:00)
[2016-09-10] MEDS: ASPIRIN ENTERIC COATED 81 MG TABLET.DR. PO SCH (09:00)
[2016-09-10] MEDS: METOPROLOL SUCC 24HR ER 100 MG TAB.ER.24H. PO SCH (09:00)
[2016-09-10 11:45] VITALS: BP 135/80
[2016-09-10 11:49] LABS: CALCIUM 9.7 mg/dL (8.5-10.1); GFR 89.9; MAGNESIUM 1.9 mg/dL (1.8-2.4)
[2016-09-10 11:51] LABS: BASO # 0.1 x10^3/uL (0.0-0.2); BASO % 1 % (0-3); EOS % 4 % (0-3); HEMATOCRIT 43.5 % (39.0-53.0); HEMOGLOBIN 14.1 g/dL (13.0-17.5); LYMPH # 1.6 x10^3/uL (1.0-4.8); LYMPH % 25 % (24-48); MEAN CORPUSCULAR HEMOGLOBIN 28 pg (25-35); MEAN CORPUSCULAR HGB CONC 33 g/dL (31-37); MEAN CORPUSCULAR VOLUME 85 fL (79-100); MONO % 11 % (0-9); NEUT % 60 % (31-73); PLATELET COUNT 323 x10^3/uL (140-400); RED BLOOD COUNT 5.09 x10^6/uL (4.30-5.70); RED CELL DISTRIBUTION WIDTH 16.2 % (11.5-14.5); WHITE BLOOD COUNT 6.4 x10^3/uL (4.0-11.0)
[2016-09-10 12:00] LABS: INR 1.7 (0.8-1.1); PROTHROMBIN TIME PATIENT 18.9 SEC (11.7-14.0)
--- NOTE | 2016-09-10 14:13 | PDOC ---
PROGRESS NOTES Chief Complaint Chief Complaint Acute respir failure ASSESSMENT AND PLAN: 1. CHF exacerbation: systolic (EF 20%); resolved. prob 2/2 missed meds at home for several days. 2. afib/flutter: new since last night. asymptomatic. dig as per cards 3. Chest pain: ACS r/o with serial enzymes. no recurrence. plan for cath on Sunday 3. HTN: on home YANIRA-I, BB 4. HLD: on statin 5. DM2: fluctuating some during the day. on metformin at home, hold for now. ISS to cover 6. 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 also has IVC filter 7. Morbid obesity: BMI 45, causing hypoventilation induced chronic hypoxia as well 8. ROSEANN: CPAP at home, BiPAP her at nite and PRN History of Present Illness History of Present Illness no breathing difficulties, no CP, no GI sx Vitals Vitals Vital Signs Date Time Temp Pulse Resp B/P (MAP) Pulse Ox O2 Delivery O2 Flow Rate FiO2 09/10/16 11:45 97.4 96 20 135/80 (98) 93 Nasal Cannula 2.0 97.4 Physical Exam General: Alert, Oriented X3, Cooperative, No acute distress Heart: Regular rate, Other (distant heart sounds; 3/6 systolic murmur to LLS border) Lungs: Clear Abdomen: Normal bowel sounds, Soft, Other (massively obese) Extremities: No cyanosis, Other (trace LE edema) Skin: No significant lesion Labs LABS Laboratory Tests Test 09/09/16 16:34 09/09/16 20:56 09/10/16 07:45 09/10/16 11:25 Glucose (Fingerstick) 146 mg/dL (70-99) 204 mg/dL (70-99) 132 mg/dL (70-99) White Blood Count 6.4 x10^3/uL (4.0-11.0) Red Blood Count 5.09 x10^6/uL (4.30-5.70) Hemoglobin 14.1 g/dL (13.0-17.5) Hematocrit 43.5 % (39.0-53.0) Mean Corpuscular Volume 85 fL (79-100) Mean Corpuscular Hemoglobin 28 pg (25-35) Mean Corpuscular Hemoglobin Concent 33 g/dL (31-37) Red Cell Distribution Width 16.2 % (11.5-14.5) Platelet Count 323 x10^3/uL (140-400) Neutrophils (%) (Auto) 60 % (31-73) Lymphocytes (%) (Auto) 25 % (24-48) Monocytes (%) (Auto) 11 % (0-9) Eosinophils (%) (Auto) 4 % (0-3) Basophils (%) (Auto) 1 % (0-3) Neutrophils # (Auto) 3.8 x10^3uL (1.8-7.7) Lymphocytes # (Auto) 1.6 x10^3/uL (1.0-4.8) Monocytes # (Auto) 0.7 x10^3/uL (0.0-1.1) Eosinophils # (Auto) 0.2 x10^3/uL (0.0-0.7) Basophils # (Auto) 0.1 x10^3/uL (0.0-0.2) Prothrombin Time 18.9 SEC (11.7-14.0) Prothromb Time International Ratio 1.7 (0.8-1.1) Sodium Level 138 mmol/L (136-145) Potassium Level 4.0 mmol/L (3.5-5.1) Chloride Level 98 mmol/L (98-107) Carbon Dioxide Level 35 mmol/L (21-32) Anion Gap 5 (6-14) Blood Urea Nitrogen 14 mg/dL (8-26) Creatinine 1.0 mg/dL (0.7-1.3) Estimated GFR (Cockcroft-Gault) 89.9 Glucose Level 201 mg/dL (70-99) Calcium Level 9.7 mg/dL (8.5-10.1) Magnesium Level 1.9 mg/dL (1.8-2.4) Test 09/10/16 11:35 Glucose (Fingerstick) 196 mg/dL (70-99) NANCY KING MD September 10, 2016 14:13
[2016-09-10 14:42] VITALS: BP 139/98
[2016-09-10] MEDS: POLYETHYLENE GLYCOL 3350 17 GM PACKET. PO SCH (17:40)
[2016-09-10 19:04] VITALS: BP 117/71
[2016-09-10] MEDS: SIMVASTATIN 10 MG TABLET PO SCH (20:39)
[2016-09-10 23:10] VITALS: BP 144/101
[2016-09-11] VITALS (14 sets, daily range): BP systolic 124–153; BP diastolic 79–93
[2016-09-11 05:32] LABS: BASO # 0.1 x10^3/uL (0.0-0.2); BASO % 1 % (0-3); EOS % 4 % (0-3); HEMATOCRIT 43.1 % (39.0-53.0); LYMPH # 1.8 x10^3/uL (1.0-4.8); LYMPH % 29 % (24-48); MEAN CORPUSCULAR HEMOGLOBIN 28 pg (25-35); MEAN CORPUSCULAR HGB CONC 32 g/dL (31-37); MEAN CORPUSCULAR VOLUME 85 fL (79-100); MONO % 12 % (0-9); NEUT % 54 % (31-73); PLATELET COUNT 333 x10^3/uL (140-400); RED BLOOD COUNT 5.05 x10^6/uL (4.30-5.70); WHITE BLOOD COUNT 6.2 x10^3/uL (4.0-11.0)
[2016-09-11 05:43] LABS: INR 1.5 (0.8-1.1); PROTHROMBIN TIME PATIENT 17.5 SEC (11.7-14.0)
[2016-09-11 06:09] LABS: CREATININE 0.9 mg/dL (0.7-1.3); GFR 101.5; MAGNESIUM 2.2 mg/dL (1.8-2.4); POTASSIUM 4.4 mmol/L (3.5-5.1)
[2016-09-11] MEDS: ASPIRIN ENTERIC COATED 81 MG TABLET.DR. PO SCH (08:00)
[2016-09-11] MEDS: INSULIN ASPART 300 UNITS/3 ML INSULN.PEN SQ SCH ×3 (08:00→17:00)
[2016-09-11] MEDS: POLYETHYLENE GLYCOL 3350 17 GM PACKET. PO SCH (09:00)
[2016-09-11] MEDS: DULoxetine HCL 30 MG CAPSULE.DR PO SCH ×2 (09:00→20:31)
[2016-09-11] MEDS: traMADol 50 MG TABLET PO SCH ×2 (09:00→20:30)
[2016-09-11] MEDS: GABAPENTIN 300 MG CAPSULE. PO SCH ×3 (09:00→20:30)
[2016-09-11] MEDS: LISINOPRIL 40 MG TABLET. PO SCH (11:46)
[2016-09-11] MEDS: amLODIPine BESYLATE 10 MG TABLET PO SCH (11:47)
[2016-09-11] MEDS: METOPROLOL SUCC 24HR ER 100 MG TAB.ER.24H. PO SCH (11:49)
[2016-09-11] MEDS ORDERED: VERAPAMIL 5 MG/2 ML VIAL. ONE (14:46)
[2016-09-11] MEDS ORDERED: NITROGLYCERIN 200 MCG/2 ML SYRINGE FOR CATH/VASC LAB. ONE (14:46)
[2016-09-11] MEDS ORDERED: fentaNYL PF VIAL 250 MCG/5 ML VIAL ONE (14:46)
[2016-09-11] MEDS ORDERED: MIDAZOLAM HCL/PF 5 MG/5 ML VIAL. ONE (14:46)
[2016-09-11] MEDS ORDERED: HEPARIN for IV BOLUS 10,000 UNIT/10 ML VIAL. ONE (14:47)
[2016-09-11] MEDS ORDERED: IOHEXOL 300 MG/ML 100ML VIAL. ONE (14:55)
[2016-09-11] MEDS ORDERED: LIDOCAINE 2% 20 ML VIAL. ONE (14:55)
[2016-09-11] MEDS ORDERED: IOHEXOL 300 MG/ML 100ML VIAL. IART ONE (15:15)
[2016-09-11] MEDS ORDERED: MIDAZOLAM HCL/PF 5 MG/5 ML VIAL. IV ONE (15:15)
[2016-09-11] MEDS ORDERED: LIDOCAINE 2% 20 ML VIAL. IJ ONE (15:15)
[2016-09-11] MEDS ORDERED: WARFARIN 4 MG TABLET. PO ONE (16:00)
--- NOTE | 2016-09-11 16:53 | CARD ---
APPROVED REPORT Procedure(s) performed: Left Heart Catheterization + Left ventriculogram + coronary angiography HISTORY The patient is a 66 year-old male with a history of : previous CHF, tobacco history() , hypertension, dyslipidemia. INDICATION The indication(s) include : dyspnea, Cardiomyopathy with an EF < 20%. CASE TECHNIQUE During this case, Fluoroscopy and low osmolar contrast were used for imaging. PROCEDURE NARRATIVE After appropriate informed consent the patient was brought to the catheterization laboratory and the bilateral groins were prepped and draped in usual sterile fashion. Under 2% lidocaine local anesthesia of the right groin was anesthetized. The patient received Versed for sedation. Next, via the modified Seldinger technique a 6 Surinamese introducer was placed in the [facility] common femoral artery with a 18-gauge needle and a J-tipped guidewire. Subsequently, diagnostic cor onary angiography was performed with a 6 [place]amese JL4 and a 6 [place]inamese JR4 catheter. Left ventricular pre ssures were obtained with a pigtail catheter and left ventriculography was performed after which a pu llback maneuver was also performed. Findings: Hemodynamics: LVEDP 15 No gradient on LV to aortic pullback. Left ventriculogram: Severe global hypokinesis with ejection fraction of 30%. Coronary angiography: LM is a large caliber vessel with normal angiographic appearance. LAD is a large caliber vessel with normal angiographic appearance. Ramus is a moderate caliber vessel with normal angiographic appearance. LCx is a moderate caliber non-dominant vessel with normal angiographic appearance. OM1 is a moderate caliber vessel with normal angiographic appearance. RCA is a large caliber dominant vessel with normal angiographic appearance. RPDA and RPL are moderate caliber vessels with normal angiographic appearance. At case completion the right groin sheath was removed and limited femoral angiography revealed adequa te placement of the sheath and therefore hemostasis was obtained with an Angio-Seal device. The patie nt tolerated the procedure well and there were no immediate consultations. Conclusion 1. Normal left ventricular filling pressures 2. No Significant coronary artery disease Recommendations Aggressive Medical Therapy
[2016-09-11] MEDS: FUROSEMIDE 40 MG TABLET. PO SCH (17:26)
--- NOTE | 2016-09-11 18:36 | PDOC ---
PROGRESS NOTES Chief Complaint Chief Complaint Acute respir failure ASSESSMENT AND PLAN: 1. CHF exacerbation: systolic (EF 20%); resolved. prob 2/2 missed meds at home for several days. 2. afib/flutter: new in hospital, now resolved, in SVT. consider increase BB 3. Chest pain: ACS r/o with serial enzymes. no recurrence. cath today "clean " 3. HTN: on home YANIRA-I, BB 4. HLD: on statin 5. DM2: fluctuating some during the day. on metformin at home, hold for now. ISS to cover 6. 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 also has IVC filter 7. Morbid obesity: BMI 45, causing hypoventilation induced chronic hypoxia as well 8. ROSEANN: CPAP at home, BiPAP her at nite and PRN 9. Dispo: anticipate D/C home in AM History of Present Illness History of Present Illness no breathing difficulties, no CP, no GI sx Vitals Vitals Vital Signs Date Time Temp Pulse Resp B/P (MAP) Pulse Ox O2 Delivery O2 Flow Rate FiO2 09/11/16 17:45 92 131/81 (98) 09/11/16 15:21 16 96 Nasal Cannula 2.0 09/11/16 11:00 97.6 97.6 Physical Exam General: Alert, Oriented X3, Cooperative, No acute distress Heart: Regular rate Lungs: Clear Abdomen: Normal bowel sounds, Soft, Other (massively obese) Extremities: No cyanosis, Other (trace LE edema) Skin: No significant lesion Labs LABS Laboratory Tests Test 09/11/16 05:15 09/11/16 07:42 09/11/16 12:01 09/11/16 15:55 White Blood Count 6.2 x10^3/uL (4.0-11.0) Red Blood Count 5.05 x10^6/uL (4.30-5.70) Hemoglobin 14.0 g/dL (13.0-17.5) Hematocrit 43.1 % (39.0-53.0) Mean Corpuscular Volume 85 fL (79-100) Mean Corpuscular Hemoglobin 28 pg (25-35) Mean Corpuscular Hemoglobin Concent 32 g/dL (31-37) Red Cell Distribution Width 16.0 % (11.5-14.5) Platelet Count 333 x10^3/uL (140-400) Neutrophils (%) (Auto) 54 % (31-73) Lymphocytes (%) (Auto) 29 % (24-48) Monocytes (%) (Auto) 12 % (0-9) Eosinophils (%) (Auto) 4 % (0-3) Basophils (%) (Auto) 1 % (0-3) Neutrophils # (Auto) 3.3 x10^3uL (1.8-7.7) Lymphocytes # (Auto) 1.8 x10^3/uL (1.0-4.8) Monocytes # (Auto) 0.8 x10^3/uL (0.0-1.1) Eosinophils # (Auto) 0.3 x10^3/uL (0.0-0.7) Basophils # (Auto) 0.1 x10^3/uL (0.0-0.2) Prothrombin Time 17.5 SEC (11.7-14.0) Prothromb Time International Ratio 1.5 (0.8-1.1) Sodium Level 138 mmol/L (136-145) Potassium Level 4.4 mmol/L (3.5-5.1) Chloride Level 101 mmol/L (98-107) Carbon Dioxide Level 31 mmol/L (21-32) Anion Gap 6 (6-14) Blood Urea Nitrogen 17 mg/dL (8-26) Creatinine 0.9 mg/dL (0.7-1.3) Estimated GFR (Cockcroft-Gault) 101.5 Glucose Level 173 mg/dL (70-99) Calcium Level 10.0 mg/dL (8.5-10.1) Magnesium Level 2.2 mg/dL (1.8-2.4) Glucose (Fingerstick) 150 mg/dL (70-99) 132 mg/dL (70-99) 105 mg/dL (70-99) NANCY KING MD September 11, 2016 18:36
[2016-09-11] MEDS: SIMVASTATIN 10 MG TABLET PO SCH (20:30)
[2016-09-12 02:24] VITALS: BP 149/103
[2016-09-12 05:19] LABS: INR 1.5 (0.8-1.1); PROTHROMBIN TIME PATIENT 16.8 SEC (11.7-14.0)
[2016-09-12 07:50] VITALS: BP 147/92
[2016-09-12] MEDS: ASPIRIN ENTERIC COATED 81 MG TABLET.DR. PO SCH (08:00)
[2016-09-12] MEDS: INSULIN ASPART 300 UNITS/3 ML INSULN.PEN SQ SCH ×2 (08:00→12:43)
[2016-09-12] MEDS: DULoxetine HCL 30 MG CAPSULE.DR PO SCH (09:32)
[2016-09-12] MEDS: POLYETHYLENE GLYCOL 3350 17 GM PACKET. PO SCH (09:32)
[2016-09-12] MEDS: METOPROLOL SUCC 24HR ER 100 MG TAB.ER.24H. PO SCH (09:33)
[2016-09-12] MEDS: GABAPENTIN 300 MG CAPSULE. PO SCH (09:33)
[2016-09-12] MEDS: FUROSEMIDE 40 MG TABLET. PO SCH (09:33)
[2016-09-12] MEDS: traMADol 50 MG TABLET PO SCH (09:34)
[2016-09-12] MEDS: amLODIPine BESYLATE 10 MG TABLET PO SCH (09:34)
[2016-09-12] MEDS: LISINOPRIL 40 MG TABLET. PO SCH (09:35)
--- NOTE | 2016-09-12 11:36 | PDOC ---
GUSTAVO WEBER PUBLIC WORKS COMMISSIONER 09/12/16 1136: CARDIO Progress Notes Date and Time Date of Service 09/12/2016 Time of Evaluation 1100 Subjective Subjective: No Chest Pain, No shortness of breath, No Palpitations, No Dizziness Vitals Vitals Vital Signs Date Time Temp Pulse Resp B/P (MAP) Pulse Ox O2 Delivery O2 Flow Rate FiO2 09/12/16 09:35 104 147/92 09/12/16 09:34 Nasal Cannula 2.0 09/12/16 07:50 98.2 22 100 98.2 Weight Weight [ ] Input and Output Intake and Output Intake and Output 09/12/16 07:00 Intake Total 1500 ml Output Total 1575 ml Balance -75 ml Intake Oral 1500 ml Output Urine Total 1575 ml Laboratory Labs Laboratory Tests Test 09/11/16 12:01 09/11/16 15:55 09/11/16 20:45 09/12/16 04:00 Glucose (Fingerstick) 132 mg/dL (70-99) 105 mg/dL (70-99) 193 mg/dL (70-99) Prothrombin Time 16.8 SEC (11.7-14.0) Prothromb Time International Ratio 1.5 (0.8-1.1) Test 09/12/16 07:45 Glucose (Fingerstick) 140 mg/dL (70-99) Physical Exam HEENT: Neck Supple W Full Motion Chest: Symmetric LUNGS: Clear to Auscultation Heart: S1S2, RRR (Sinus tach) Abdomen: Soft N/T, Other (obese) Extremities: No Edema, No Calf Tenderness Neurology: alert, oriented, follow commands Assessment Assessment 1. Acute on chronic systolic CHF: now compensated. NYHA 2-3 2. NICM: EF 15-20%, [facility] 09/10/2016 with significant coronary disease 3. Paroxysmal atrial flutter: New this hospitalization. Currently on SR, sinus tach at 100-110 4. HTN: at high end of normal 5. DM2/HLP 6. Hx of PE/DVT/IVC filter with chronic anticoagulation: coumadin with INR today at 1.5. 7. Morbid obesity: BMI 45 8. ROSEANN with severe pulmonary HTN: Bipap at home 9. Suspect underlying COPD Recommendations 1. Continue with diuretic therapy. Daily weight, fluid restriction 2L, and home BP monitoring 2. Discussed optimization compliance 3. Lifevest prior to DC. Will reevaluate for possible AICD placement in 3 months 4. Discussed with pt in regards to switching to eliquis and the expense with 30 $ approx per tier 3 and is willing to switch from coumadin. Will verify in our office. 5. Continue with secondary prevention measures. With ongoing ACEi currently, will reevaluate for entresto as an outpt 6. Increase toprol XL 7. Follow up in our clinic in 1 week 8. Home O2 arrange per PCP and continue with CPAP/Bipap 9. Not a candidate for corlanor with notable PAF. MARINA TIWARI MD 09/12/16 1507: CARDIO Progress Notes Plan Plan Pt. seen and examined. Agree with above MACHINE STACKER note. No acute events overnight. Meds reviewed. Will change coumadin to eliquis. Plan for 1 week f/u in the office. No edema. Breathing better. Ok to DC. Thanks. GUSTAVO WEBER APRN September 12, 2016 11:36 MARINA TIWARI MD September 12, 2016 15:07
[2016-09-12 11:55] VITALS: BP 124/67
--- NOTE | 2016-09-12 14:36 | PDOC ---
PROGRESS NOTES Chief Complaint Chief Complaint Acute respir failure ASSESSMENT AND PLAN: 1. CHF exacerbation: systolic (EF 20%); resolved. prob 2/2 missed meds at home for several days. now back to baseline 2. afib/flutter: new in hospital, now resolved, now mild SVT, not controlled by increased BB. F/U with cards on O/P basis 3. Chest pain: ACS r/o with serial enzymes. no recurrence. cath on 09/11 "clean" 3. HTN: on home YANIRA-I, BB - increased dose 4. HLD: on statin 5. DM2: fluctuating some during the day. restart metformin. 6. 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 also has IVC filter 7. Morbid obesity: BMI 45, causing hypoventilation induced chronic hypoxia as well 8. ROSEANN: CPAP at home, BiPAP her at nite and PRN 9. Dispo: D/C home today History of Present Illness History of Present Illness no breathing difficulties, no CP. is grumpy today. declines rpt 6 min walk ( previous test is >48h old.). not willing to wait for life vest ordered for him Vitals Vitals Vital Signs Date Time Temp Pulse Resp B/P (MAP) Pulse Ox O2 Delivery O2 Flow Rate FiO2 09/12/16 11:55 97.6 105 22 124/67 (86) 93 Room Air 97.6 09/12/16 11:00 2.0 Physical Exam General: Alert, Oriented X3, Cooperative, No acute distress Heart: Regular rate Lungs: Clear Abdomen: Normal bowel sounds, Soft, Other (massively obese) Extremities: No cyanosis, Other (trace LE edema) Skin: No significant lesion Labs LABS Laboratory Tests Test 09/11/16 15:55 09/11/16 20:45 09/12/16 04:00 09/12/16 07:45 Glucose (Fingerstick) 105 mg/dL (70-99) 193 mg/dL (70-99) 140 mg/dL (70-99) Prothrombin Time 16.8 SEC (11.7-14.0) Prothromb Time International Ratio 1.5 (0.8-1.1) Test 09/12/16 12:12 Glucose (Fingerstick) 178 mg/dL (70-99) NANCY KING MD September 12, 2016 14:36
[2016-09-12] MEDS ORDERED: WARF10TA45 MC (14:44)
[2016-09-12] MEDS ORDERED: METO100T11 PO (14:44)
[2016-09-12] MEDS ORDERED: ASPI81TA9 PO (14:44)
[2016-09-12] MEDS ORDERED: LISI40TA PO (14:44)
[2016-09-12] MEDS ORDERED: FURO40TA4 PO (14:44)
[2016-09-12] MEDS ORDERED: AMLO10TA2 PO (14:44)
[2016-09-12] MEDS ORDERED: APIX5TAB PO (15:06)
[2016-09-12] MEDS ORDERED: ANTI-COAG MONITOR BY PHARMACY. MC PRN (15:30)
[2016-09-12] MEDS ORDERED: APIXABAN 5 MG TABLET. PO SCH (21:00)
[2016-09-13] MEDS ORDERED: METOPROLOL SUCC 24HR ER 100 MG TAB.ER.24H. PO SCH (09:00)
--- NOTE | 2016-09-13 23:51 | DS ---
DATE OF DISCHARGE: 09/12/2016 CHIEF COMPLAINT: Shortness of breath. HOSPITAL COURSE: The patient is a 66-year-old morbidly obese gentleman with past medical history of AFib, CHF as well as history of DVT, PE, who presented to the Emergency Room with acute CHF exacerbation. EF was shown to be normal. Exacerbation was most likely secondary to missed medications for several days as he was waiting for medication delivery. He responded well to IV Lasix with improvement in his symptoms. He developed AFib, aflutter in the hospital, which resolved, initially with SVT, to normal sinus rhythm. Because of chest pain, ACS was ruled out with serial enzymes. A cath was performed as well on 09/11/2016 and was essentially "clean." All his other chronic issues were continued on with his home medications and no events occurred. Because of his very low EF, LifeVest was recommended to the patient. He, however, did not want to wait in the hospital for arrival. Company was therefore directed to deliver to home. PHYSICAL EXAMINATION: Please refer to note from same day. DISCHARGE DATE: 09/12/2016. DISCHARGE DIAGNOSIS: Congestive heart failure exacerbation. DISCHARGE DISPOSITION: To home. DISCHARGE CONDITION: Improved. DISCHARGE MEDICATIONS: Please refer to MAR. DISCHARGE INSTRUCTIONS: The patient will follow up with Cardiology within 1 week and see his primary care physician as soon as possible. NANCY KING MD DR: UR/nts JOB#: [id number] / [id number] CHAS [place]
== END 2016-09-12 15:15 | disposition home or self-care (01) | DRG 287 ==
LOC: ER 17:45 → 2 SOUTH 20:19
PROVIDERS: ADMIT Internal Medicine; ATTEND Internal Medicine
PROC: 5A09457 Assistance with Respiratory Ventilation, 24-96 Consecutive Hours, Continuous Positive Airway Pressure (ICD-10-PCS; 2016-09-06)
PROC: 4A023N7 Measurement of Cardiac Sampling and Pressure, Left Heart, Percutaneous Approach (ICD-10-PCS; principal; 2016-09-11)
PROC: B2111ZZ Fluoroscopy of Multiple Coronary Arteries using Low Osmolar Contrast (ICD-10-PCS; 2016-09-11)
PROC: B2151ZZ Fluoroscopy of Left Heart using Low Osmolar Contrast (ICD-10-PCS; 2016-09-11)
DX: I50.41 Acute combined systolic (congestive) and diastolic (congestive) heart failure (principal); E87.2 Acidosis; Z68.42 Body mass index [BMI] 45.0-49.9, adult; I48.92 Unspecified atrial flutter; I47.1 Supraventricular tachycardia; Z68.41 Body mass index [BMI] 40.0-44.9, adult; I42.9 Cardiomyopathy, unspecified; I11.0 Hypertensive heart disease with heart failure; I48.91 Unspecified atrial fibrillation; I50.43 Acute on chronic combined systolic (congestive) and diastolic (congestive) heart failure; E11.9 Type 2 diabetes mellitus without complications; F12.90 Cannabis use, unspecified, uncomplicated; Z96.652 Presence of left artificial knee joint; I25.10 Atherosclerotic heart disease of native coronary artery without angina pectoris; E78.5 Hyperlipidemia, unspecified; E66.01 Morbid (severe) obesity due to excess calories; M19.90 Unspecified osteoarthritis, unspecified site; F41.9 Anxiety disorder, unspecified; Z79.01 Long term (current) use of anticoagulants; K21.9 Gastro-esophageal reflux disease without esophagitis; Z92.3 Personal history of irradiation; Z85.46 Personal history of malignant neoplasm of prostate; G47.33 Obstructive sleep apnea (adult) (pediatric); I27.2 Other secondary pulmonary hypertension; E87.6 Hypokalemia; E83.42 Hypomagnesemia; E78.00 Pure hypercholesterolemia, unspecified; Z88.8 Allergy status to other drugs, medicaments and biological substances; Z86.711 Personal history of pulmonary embolism; Z82.49 Family history of ischemic heart disease and other diseases of the circulatory system; Z86.718 Personal history of other venous thrombosis and embolism; Z87.891 Personal history of nicotine dependence; Z95.5 Presence of coronary angioplasty implant and graft
CPT/HCPCS: 36415; 71010; 80047; 80048; 80053; 80061; 82550; 82962; 83605; 83735; 83880; 84443; 84484; 85027; 85610; 85730; 93005; 93306; 93458; 94620; 94640; 94660; 96374; 96375; C1769; C1771; C1894; G0269; J1160; J1815; J1940; J2060; J2250; J3490; J7060; Q9967; 99285-25

== ENCOUNTER 2016-10-04 11:33 | Inpatient (IN) | payer BC ==
[~2016-10-04] VITALS: Ht 191.8 cm; Wt 158.8 kg
[~2016-10-04 11:33] MED LIST changes: +AMLO10TA2 PO; +APIX5TAB PO; +ASPI-612 PO; +FURO40TA4 PO; +GABA-586 PO; +LISI10TA2 PO; +LISI40TA PO; +METO100T11 PO; +TRAM50TA PO; +WARF10TA45 MC
--- NOTE | 2016-10-04 12:03 | PHYS DOC ---
Past Medical History Past Medical History: CHF, Diabetes-Type II, High Cholesterol, Heart Disease, Hypertension, Other Additional Past Medical Histor: BLOOD CLOTS, PE Past Surgical History: Knee Replacement, Tonsillectomy, Other Additional Past Surgical Histo: ELBOW X 2, KNEE SCOPE X3, FOOT X2, CARDIAC STENT X 3, ENDOCART/FILTER Alcohol Use: Occasionally Drug Use: Marijuana Social History Narrative: pt denies 10/04/16 Adult General Chief Complaint Chief Complaint: SHORTNESS OF BREATH [facility] HPI Patient is a 66 year old male who presents with for dyspnea and lower extremity edema gradual in onset since recent admission. Notes slight chest tightness constant since yesterday. He notes dry cough. Denies weight measurement at home. Drinking more than 2L restriction. He denies f/c, n/v, abdominal pain, palpitations, diaphoresis. Review of Systems Review of Systems Constitutional: Denies fever or chills [] Eyes: Denies change in visual acuity, redness, or eye pain [] HENT: Denies nasal congestion or sore throat [] Respiratory: Has cough and shortness of breath [] Cardiovascular: No additional information not addressed in HPI [] GI: Denies abdominal pain, nausea, vomiting, bloody stools or diarrhea [] : Denies dysuria or hematuria [] Musculoskeletal: Denies back pain or joint pain [] Integument: Denies rash or skin lesions [] Neurologic: Denies headache, focal weakness or sensory changes [] Endocrine: Denies polyuria or polydipsia [] Allergies Allergies Allergies Coded Allergies Type Severity Reaction Last Updated Verified fentanyl Allergy Mild Nausea and Vomiting 01/02/16 Yes Physical Exam Physical Exam Constitutional: Well developed, well nourished, no acute distress, non-toxic appearance. [] HENT: Normocephalic, atraumatic, bilateral external ears normal, oropharynx moist, nose normal. [] Eyes: PERRLA, EOMI. [] Neck: Normal range of motion, supple, no stridor. [] Cardiovascular:Heart rate regular rhythm [] Lungs & Thorax: Bilateral breath sounds clear to auscultation [] Abdomen: Bowel sounds normal, soft, no tenderness. [] Skin: Warm, dry, no erythema, no rash. [] Back: Normal ROM. [] Extremities: No tenderness, ROM intact, bilateral 1+ lower extremity edema. [] Neurologic: Alert and oriented X 3, normal motor function, normal sensory function, no focal deficits noted. [] Psychologic: Affect normal, judgement normal, mood normal. [] Current Patient Data Vital Signs Vital Signs Date Time Temp Pulse Resp B/P (MAP) Pulse Ox O2 Delivery O2 Flow Rate FiO2 10/04/16 12:41 68 18 140/81 (100) 95 Nasal Cannula 2.0 10/04/16 11:37 96.3 96.3 Lab Values Laboratory Tests Test 10/04/16 11:35 White Blood Count 6.6 x10^3/uL (4.0-11.0) Red Blood Count 4.75 x10^6/uL (4.30-5.70) Hemoglobin 12.9 g/dL (13.0-17.5) L Hematocrit 40.9 % (39.0-53.0) Mean Corpuscular Volume 86 fL (79-100) Mean Corpuscular Hemoglobin 27 pg (25-35) Mean Corpuscular Hemoglobin Concent 32 g/dL (31-37) Red Cell Distribution Width 16.7 % (11.5-14.5) H Platelet Count 298 x10^3/uL (140-400) Neutrophils (%) (Auto) 59 % (31-73) Lymphocytes (%) (Auto) 28 % (24-48) Monocytes (%) (Auto) 9 % (0-9) Eosinophils (%) (Auto) 3 % (0-3) Basophils (%) (Auto) 1 % (0-3) Neutrophils # (Auto) 3.9 x10^3uL (1.8-7.7) Lymphocytes # (Auto) 1.9 x10^3/uL (1.0-4.8) Monocytes # (Auto) 0.6 x10^3/uL (0.0-1.1) Eosinophils # (Auto) 0.2 x10^3/uL (0.0-0.7) Basophils # (Auto) 0.1 x10^3/uL (0.0-0.2) Prothrombin Time 16.2 SEC (11.7-14.0) H Prothrombin Time INR 1.4 (0.8-1.1) H PTT 33 SEC (24-38) Sodium Level 138 mmol/L (136-145) Potassium Level 4.0 mmol/L (3.5-5.1) Chloride Level 102 mmol/L (98-107) Carbon Dioxide Level 25 mmol/L (21-32) Anion Gap 11 (6-14) Blood Urea Nitrogen 13 mg/dL (8-26) Creatinine 1.2 mg/dL (0.7-1.3) Estimated GFR (Cockcroft-Gault) 72.9 Glucose Level 202 mg/dL (70-99) H Calcium Level 9.7 mg/dL (8.5-10.1) Magnesium Level 1.9 mg/dL (1.8-2.4) Troponin I Quantitative < 0.017 ng/mL (0.000-0.055) TL-Fuy-S-Type Natriuretic Peptide 1567 pg/mL (0-124) H Laboratory Tests 10/04/16 11:35 Laboratory Tests 10/04/16 11:35 EKG EKG EKG as interpreted by me as normal sinus rhythm, rate 80, PVC and PAC, no ST-T changes Radiology/Procedures Radiology/Procedures Chest x-ray as interpreted by me with increased haziness bilaterally concerning for pulmonary edema and right pleural effusion compared to prior study Course & Med Decision Making Course & Med Decision Making Pertinent Labs and Imaging studies reviewed. (See chart for details) Laboratory evaluation reveals subtherapeutic INR and elevated pro-BNP (less than prior). XR and symptoms concerning for worsening CHF associated edema. Short walking desat study shows desat to 87% on RA with moderated dyspnea. Discussed case with Dr. Jarvis, who will admit. Cardiology consultation placed. Teodoro Disclaimer Dragon Disclaimer This electronic medical record was generated, in whole or in part, using a voice recognition dictation system. Departure Departure Impression: Primary Impression: CHF exacerbation Disposition: ADMITTED INPATIENT Condition: STABLE Referrals: CHAS TELLES (PCP) Problem Qualifiers Primary Impression: CHF exacerbation Congestive heart failure type: unspecified congestive heart failure type Qualified Codes: I50.9 - Heart failure, unspecified Karena SCOTT MD Oct 04, 2016 12:03
[2016-10-04 12:08] LABS: BASO # 0.1 x10^3/uL (0.0-0.2); BASO % 1 % (0-3); EOS % 3 % (0-3); HEMATOCRIT 40.9 % (39.0-53.0); HEMOGLOBIN 12.9 g/dL (13.0-17.5); LYMPH # 1.9 x10^3/uL (1.0-4.8); LYMPH % 28 % (24-48); MEAN CORPUSCULAR HEMOGLOBIN 27 pg (25-35); MEAN CORPUSCULAR HGB CONC 32 g/dL (31-37); MEAN CORPUSCULAR VOLUME 86 fL (79-100); MONO % 9 % (0-9); NEUT % 59 % (31-73); PLATELET COUNT 298 x10^3/uL (140-400); RED BLOOD COUNT 4.75 x10^6/uL (4.30-5.70); RED CELL DISTRIBUTION WIDTH 16.7 % (11.5-14.5); WHITE BLOOD COUNT 6.6 x10^3/uL (4.0-11.0)
--- NOTE | 2016-10-04 12:13 | RAD ---
Indication shortness of breath and congestive heart failure. A single view of the chest was obtained and is compared to an examination 09/08/2016. There is unchanged enlargement of the cardiac silhouette. There are now background changes suggesting mild superimposed congestive heart failure. There is some volume loss at the right lung base probably reflecting pleural fluid and atelectasis. A small left pleural fluid collection is also likely. IMPRESSION: Unchanged enlargement of the cardiac silhouette. Probable mild congestive heart failure. Small pleural effusions.
[2016-10-04 12:17] LABS: CALCIUM 9.7 mg/dL (8.5-10.1); CREATININE 1.2 mg/dL (0.7-1.3); GFR 72.9; MAGNESIUM 1.9 mg/dL (1.8-2.4)
[2016-10-04 12:18] LABS: INR 1.4 (0.8-1.1); PROTHROMBIN TIME PATIENT 16.2 SEC (11.7-14.0)
[2016-10-04] MEDS ORDERED: ONDANSETRON PF 4 MG/2 ML VIAL. IV PRN (13:30)
[2016-10-04] MEDS ORDERED: ACETAMINOPHEN 325 MG TABLET. PO PRN (13:30)
--- NOTE | 2016-10-04 13:31 | ACF ---
Admission Forms Criteria HEART FAILURE: COMMON COMPLICATIONS (Place 'X' for any and all applicable criteria): Ongoing inpatient care may be indicated for heart failure with 1 or more of the following (1)(2)(3)(4)(5)(6)(7)(8): [ ]I. New-onset heart failure [ ]II. Acute cardiac ischemia causing or associated with failure [ ]III. Ongoing need for care for primary condition requiring frequent therapy adjustments because of changes in cardiac function (eg, drug dosage changes for drugs that are renally metabolized) [X ]IV. Complications of heart failure, including 1 or more of the following: [ ]a) Hemodynamic instability [ ]b) Pericardial effusion [ ]c) Symptomatic pleural effusion [ ]d) Hypoxemia [ ]e) Tachypnea [X ]f) Dyspnea [ ]g) Syncope [ ]h) Altered mental status [ ]i) Acute renal insufficiency that is severe (reduction of more than 50% in estimated glomerular filtration rate from baseline) or progressive reduction of more than 25% in estimated glomerular filtration rate from baseline, with creatinine continuing to rise) [ ]j) Debilitating anasarca (eg tissue breakdown with infection, inability to void due to edema) (E) [ ]k) Clinically significant metabolic abnormalities due to heart failure (eg, new-onset metabolic acidosis) Extended stay may be needed until ALL of the following are present (1)(3)(18)(41 )(55) [ ]a) Hemodynamic stability [ ]b) Stable and effective diuretic regimen established (or patient on stable dialysis regimen if in chronic renal failure) [ ]c) Volume status acceptable on oral medication [ ]d) Breathing comfortably at rest [ ]e) Saturation of arterial oxygen greater than 90% or at acceptable baseline [ ]f) Pulmonary edema absent or improved [ ]g) Peripheral or sacral edema absent or improved [ ]h) Renal function stable and manageable at a lower level of care [ ]i) Complications (eg, pleural effusion) resolved or manageable at a lower level of care [ ]g) Patient or caregiver has received written discharge instructions or educational material addressing activity level, diet, discharge medications, follow-up appointment, weight monitoring, and what to do if symptoms worsen.(25)(26) The original [facility] [employer] content created by [employer] has been revised. The portions of the content which have been revised are identified through the use of italic text, and [facility] has neither reviewed nor approved the modified material.All other unmodified content is copyright [facility]. Please see references footnoted in the original [facility] edition 2015 Admission Criteria Met?: Yes JORDAN HDZ Oct 04, 2016 13:30
--- NOTE | 2016-10-04 14:35 | EKG ---
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
--- NOTE | 2016-10-04 14:45 | PDOC2 ---
YASMINEJAYCE Kelechi BOAT RENTAL CLERK 10/04/16 1445: CARDIAC CONSULT DATE OF CONSULT Date of Consult DATE: 10/04/16 TIME: 14:40 REASON FOR CONSULT Reason for Consult: chf HISTORY OF PRESENT ILLNESS HISTORY OF PRESENT ILLNESS Mr Quinones is a 66 year old male with a history of NICM with severe systolic dysfunction EF 15% who normally follows with [facility]. He was recently here with decompensation of his heart failure, medications were optomized and he was discharged on September 13 with instructions to follow up with his primary wet machine tender. He presented today with complaints of a significant increase in his dyspnea and swelling. He has apparently refused his life vest, and it is unclear what medications he has been taking and for how long. He reports that his [facility] days ago. He has been taking eliquis but says he ran out of that about 1 week ago. He brought all medications with him and has no lasix but states he has been taking this. His weight is up 10 lbs from his discharge weight on the September 13. He denies chest pain, palpitations. He reports dyspnea on exertion, orthopnea and edema. PAST MEDICAL HISTORY Past Medical History Cardiovascular: CHF, HTN, Hyperlipidemia, atrial fibrillation/flutter Pulmonary: Pulmonary embolus, Other (ROSEANN uses bipap) CENTRAL NERVOUS SYSTEM: Other (No pertinent history) GI: GERD Heme/Onc: Cancer (precancer polyps?), Other (chronic anticoagulation) Hepatobiliary: No pertinent hx Psych: Anxiety Musculoskeletal: Osteoarthritis, Other (morbid obesity) Rheumatologic: No pertinent hx Infectious disease: No pertinent hx ENT: No pertinent hx Renal/: Prostate Ca. (treated with radiation) Endocrine: Diabetes (2) Dermatology: No pertinent hx PAST SURGICAL HISTORY Past Surgical History Past Surgical History: Arthroscopy (knee and elbow), Total knee replacement ( left), Tonsillectomy, Other (IVC filter 3-4 yrs ago) FAMILY HISTORY Family History Family History noncontributory to CV SOCIAL HISTORY Social History Smoke: No (quit 8 yrs ago 20 pk yr) ALCOHOL: occasional Drugs: None Lives: with Family ALLERGIES ALLERGIES: Coded Allergies: fentanyl (Verified Allergy, Mild, Nausea and Vomiting, 01/02/16) ROS Review of System as per HPI PHYSICAL EXAM General: Alert, Oriented X3, Cooperative, mild distress HEENT: Atraumatic, EOMI Lungs: Other (decreased with basilar crackles) Heart: Other (irregular rate and rhythm, +systolic murmur, no S3S4) VITALS VITALS Vital Signs Date Time Temp Pulse Resp B/P (MAP) Pulse Ox O2 Delivery O2 Flow Rate FiO2 10/04/16 12:41 68 18 140/81 (100) 95 Nasal Cannula 2.0 10/04/16 11:37 96.3 96.3 LABS Lab: Laboratory Tests Test 10/04/16 11:35 White Blood Count 6.6 x10^3/uL (4.0-11.0) Red Blood Count 4.75 x10^6/uL (4.30-5.70) Hemoglobin 12.9 g/dL (13.0-17.5) Hematocrit 40.9 % (39.0-53.0) Mean Corpuscular Volume 86 fL (79-100) Mean Corpuscular Hemoglobin 27 pg (25-35) Mean Corpuscular Hemoglobin Concent 32 g/dL (31-37) Red Cell Distribution Width 16.7 % (11.5-14.5) Platelet Count 298 x10^3/uL (140-400) Neutrophils (%) (Auto) 59 % (31-73) Lymphocytes (%) (Auto) 28 % (24-48) Monocytes (%) (Auto) 9 % (0-9) Eosinophils (%) (Auto) 3 % (0-3) Basophils (%) (Auto) 1 % (0-3) Neutrophils # (Auto) 3.9 x10^3uL (1.8-7.7) Lymphocytes # (Auto) 1.9 x10^3/uL (1.0-4.8) Monocytes # (Auto) 0.6 x10^3/uL (0.0-1.1) Eosinophils # (Auto) 0.2 x10^3/uL (0.0-0.7) Basophils # (Auto) 0.1 x10^3/uL (0.0-0.2) Prothrombin Time 16.2 SEC (11.7-14.0) Prothromb Time International Ratio 1.4 (0.8-1.1) Activated Partial Thromboplast Time 33 SEC (24-38) Sodium Level 138 mmol/L (136-145) Potassium Level 4.0 mmol/L (3.5-5.1) Chloride Level 102 mmol/L (98-107) Carbon Dioxide Level 25 mmol/L (21-32) Anion Gap 11 (6-14) Blood Urea Nitrogen 13 mg/dL (8-26) Creatinine 1.2 mg/dL (0.7-1.3) Estimated GFR (Cockcroft-Gault) 72.9 Glucose Level 202 mg/dL (70-99) Calcium Level 9.7 mg/dL (8.5-10.1) Magnesium Level 1.9 mg/dL (1.8-2.4) Troponin I Quantitative < 0.017 ng/mL (0.000-0.055) IV-Mya-W-Type Natriuretic Peptide 1567 pg/mL (0-124) IMAGES IMAGES CXR - IMPRESSION: Unchanged enlargement of the cardiac silhouette. Probable mild congestive heart failure. Small pleural effusions. EKG EKG atrial fibrillation without acute st/t abn ECHOCARDIOGRAM ECHOCARDIOGRAM 09/07/16 Left ventricle systolic function is severely impaired. The Ejection Fraction is 15-20%. Abnormal septal motion is noted. There is severe global hypokinesis of the left ventricle. RV Systolic function is moderately reduced. Doppler and Color Flow revealed moderate mitral regurgitation. Doppler and Color Flow revealed moderate tricuspid regurgitation.The pulmonary artery systolic pressure is estimated at 70 mmHg. There is severe pulmonary hypertension. HEART CATH HEART CATH 09/10/16 Left ventriculogram: Severe global hypokinesis with ejection fraction of 30%. Coronary angiography: LM is a large caliber vessel with normal angiographic appearance. LAD is a large caliber vessel with normal angiographic appearance. Ramus is a moderate caliber vessel with normal angiographic appearance. LCx is a moderate caliber non-dominant vessel with normal angiographic appearance. OM1 is a moderate caliber vessel with normal angiographic appearance. RCA is a large caliber dominant vessel with normal angiographic appearance. RPDA and RPL are moderate caliber vessels with normal angiographic appearance. ASSESSMENT/PLAN ASSESSMENT/PLAN 1. Acute on chronic systolic heart failure - likely secondary to medication non compliance. EF 15% by echo last month. Refused life vest but will consider now. Resume beta pippa, ACEI and diuretics. Consider aldactone. 2. NICM - rec life vest at discharge and reassess EF in 3 months for possible AICD. 3. PHTN - PAS 70 mmHg, consider pulmonary consult 4. hypertension - resume home medications 5. atrial fibrillation/flutter - paroxysmal, rate controlled 6. diabetes mellitus - per PCP 7. hyperlipidemia - continue statin Suggest resume and optimize home medications. Consider combination therapy when possible as compliance appears to be an issue. Problems: MARINA TIWARI MD 10/04/16 2141: CARDIAC CONSULT ALLERGIES ALLERGIES: Coded Allergies: fentanyl (Verified Allergy, Mild, Nausea and Vomiting, 01/02/16) ASSESSMENT/PLAN ASSESSMENT/PLAN Pt. seen and examined. Agree with above GEODETIC SURVEY DIRECTOR note. 66 y.o admitted for dyspnea. Poorly compliant. Denies chest pain. +rales, LE edema on exam. labs meds reviewed. Will follow. Continue/restart home meds. Problems: JAYCE UNDERWOOD APRN Oct 04, 2016 14:45 MARINA TIWARI MD Oct 04, 2016 21:41
[2016-10-04] MEDS ORDERED: CARVEDILOL 3.125 MG TABLET. PO SCH (17:00)
[2016-10-04 17:42] VITALS: BP 103/71
[2016-10-04 19:10] VITALS: BP 107/77
[2016-10-04] MEDS: APIXABAN 5 MG TABLET. PO SCH (20:45)
[2016-10-04] MEDS ORDERED: SENNOSIDES 8.6 MG TABLET PO PRN (21:15)
[2016-10-04] MEDS: GABAPENTIN 300 MG CAPSULE. PO SCH (21:54)
[2016-10-04] MEDS: traMADol 50 MG TABLET PO SCH (21:55)
[2016-10-04] MEDS: ATORVASTATIN CALCIUM 10 MG TABLET. PO SCH (21:55)
[2016-10-04 22:50] VITALS: BP 120/83
--- NOTE | 2016-10-04 23:52 | HP ---
ADMIT DATE: 10/04/2016 CHIEF COMPLAINT: Shortness of breath for 3 weeks. HISTORY OF PRESENT ILLNESS: The patient is a pleasant 66-year-old male who presents with shortness of breath for 3 weeks. He has got associated swelling. He had a cardiac cath 3 weeks ago. Rates his symptoms at 7/10. I discussed the case with the ER physician. It appears he is in heart failure. We are going to admit the patient and diurese him and consult cardiology. PAST MEDICAL HISTORY: Obesity, CHF, and cardiac catheterization. ALLERGIES: None. FAMILY HISTORY: Diabetes. SOCIAL HISTORY: He does not drink, smoke, or take drugs. He is retired. MEDICATIONS: Reviewed, please refer to the MRAD. REVIEW OF SYSTEMS: GENERAL: No history of weight change, weakness or fevers. SKIN: No bruising, hair changes or rashes. EYES: No blurred, double or loss of vision. NOSE AND THROAT: No history of nosebleeds, hoarseness or sore throat. HEART: No history of palpitations, chest pain or shortness of breath on exertion. LUNGS: The patient complains of shortness of breath. GASTROINTESTINAL: Denies changes in appetite, nausea, vomiting, diarrhea or constipation. GENITOURINARY: No history of frequency, urgency, hesitancy or nocturia. NEUROLOGIC: Denies history of numbness, tingling, tremor or weakness. PSYCHIATRIC: No history of panic, anxiety or depression. ENDOCRINE: No history of heat or cold intolerance, polyuria or polydipsia. EXTREMITIES: Denies muscle weakness, joint pain, pain on walking or stiffness. PHYSICAL EXAMINATION: VITAL SIGNS: Temperature afebrile, pulse 68, respirations 18, blood pressure 144/90. GENERAL: He is alert, pleasant, and short of breath. HEART: Normal S1, S2 with a soft S3. LUNGS: Bibasilar crackles. ABDOMEN: Soft and obese. EXTREMITIES: 2+ edema. SKIN: No rashes. PSYCHIATRIC: He is depressed. VASCULAR: Good capillary refill. ENDOCRINE: No thyromegaly. LYMPHATICS: No cervical nodes. HEMATOPOIETIC: No bruising. Chest x-ray shows vascular congestion and cardiomegaly. LABORATORY DATA: Reviewed. ASSESSMENT AND PLAN: [id number] systolic and diastolic heart failure. The patient has been admitted. We will diurese him, serial enzymes, serial EKGs, echocardiogram, consult Cardiology, and home meds. PROGNOSIS: Guarded. ANDREW MCKEE DO DR: LAVELL/johnny JOB#: [id number] / [id number]
[2016-10-05 03:00] VITALS: BP 92/66
[2016-10-05 07:30] VITALS: BP 102/50
[2016-10-05] MEDS ORDERED: FUROSEMIDE 40 MG TABLET. PO SCH (09:00)
[2016-10-05] MEDS ORDERED: METOPROLOL SUCC 24HR ER 100 MG TAB.ER.24H. PO SCH (09:00)
[2016-10-05] MEDS ORDERED: LISINOPRIL 40 MG TABLET. PO SCH (09:00)
[2016-10-05] MEDS: ASPIRIN ENTERIC COATED 81 MG TABLET.DR. PO SCH (09:18)
[2016-10-05] MEDS: GABAPENTIN 300 MG CAPSULE. PO SCH ×3 (09:19→20:47)
[2016-10-05] MEDS: DULoxetine HCL 30 MG CAPSULE.DR PO SCH ×2 (09:19→20:47)
[2016-10-05] MEDS: POTASSIUM CHLORIDE 20 MEQ TABLET.ER. PO SCH (09:19)
[2016-10-05] MEDS: traMADol 50 MG TABLET PO SCH ×2 (09:21→20:47)
[2016-10-05] MEDS: APIXABAN 5 MG TABLET. PO SCH ×2 (09:21→20:47)
[2016-10-05] MEDS: FUROSEMIDE 40 MG/4 ML VIAL. IVP SCH (09:25)
[2016-10-05] MEDS: LISINOPRIL 40 MG TABLET. PO SCH (09:25)
[2016-10-05] MEDS: amLODIPine BESYLATE 10 MG TABLET PO SCH (09:25)
[2016-10-05] MEDS: ANTI-COAG MONITOR BY PHARMACY. MC PRN (09:52)
[2016-10-05] MEDS: INDAPAMIDE 2.5 MG TABLET PO SCH (10:03)
[2016-10-05 11:07] VITALS: BP 128/78
[2016-10-05] MEDS ORDERED: DEXTROSE 50% 25 GM / 50ML DISP.SYRIN. IV PRN (13:30)
[2016-10-05] MEDS: INSULIN ASPART 300 UNITS/3 ML INSULN.PEN SQ SCH ×2 (13:41→17:00)
--- NOTE | 2016-10-05 14:42 | PDOC ---
PROGRESS NOTES Chief Complaint Chief Complaint cc: SOB a/p 1. Acute on chronic systolic heart failure: on diuresis, monitor electrolytes, and intake, out put, 2. NICM: EF 15%, life vest at [place], cardiology following 3. Obesity with PHTN - PAS 70 mmHg, PRN BIPAP at HS. 4. hypertension Stable. 5. atrial fibrillation/flutter : paroxysmal, rate controlled 6. Diabetes mellitus with hyperglycemia: SSI 7. Hyperlipidemia : continue statin 8. PT/OT History of Present Illness History of Present Illness SOB NO MOBILITY NO CHEST PAIN NEED PT/OT Vitals Vitals Vital Signs Date Time Temp Pulse Resp B/P (MAP) Pulse Ox O2 Delivery O2 Flow Rate FiO2 10/05/16 11:07 98.7 71 20 128/78 (95) 93 Room Air 98.7 10/05/16 10:23 2.0 Physical Exam General: Alert, Oriented X3, Cooperative, mild distress, Other (OBESE) Heart: Normal S1, Normal S2, Other (irregular rate and rhythm, +systolic murmur, no S3S4) Lungs: Other (RALES, WHEEZING. ) Abdomen: Normal bowel sounds, Soft Extremities: No clubbing Labs LABS Laboratory Tests Test 10/05/16 08:32 10/05/16 12:49 Glucose (Fingerstick) 118 mg/dL (70-99) 280 mg/dL (70-99) Assessment and Plan Assessmemt and Plan Problems Medical Problems: (1) CHF exacerbation Status: Acute Problems: Comment Review of Relevant I have reviewed the following items rashid (where applicable) has been applied. Labs Laboratory Tests Test 10/04/16 11:35 10/05/16 08:32 10/05/16 12:49 White Blood Count 6.6 x10^3/uL (4.0-11.0) Red Blood Count 4.75 x10^6/uL (4.30-5.70) Hemoglobin 12.9 g/dL (13.0-17.5) Hematocrit 40.9 % (39.0-53.0) Mean Corpuscular Volume 86 fL (79-100) Mean Corpuscular Hemoglobin 27 pg (25-35) Mean Corpuscular Hemoglobin Concent 32 g/dL (31-37) Red Cell Distribution Width 16.7 % (11.5-14.5) Platelet Count 298 x10^3/uL (140-400) Neutrophils (%) (Auto) 59 % (31-73) Lymphocytes (%) (Auto) 28 % (24-48) Monocytes (%) (Auto) 9 % (0-9) Eosinophils (%) (Auto) 3 % (0-3) Basophils (%) (Auto) 1 % (0-3) Neutrophils # (Auto) 3.9 x10^3uL (1.8-7.7) Lymphocytes # (Auto) 1.9 x10^3/uL (1.0-4.8) Monocytes # (Auto) 0.6 x10^3/uL (0.0-1.1) Eosinophils # (Auto) 0.2 x10^3/uL (0.0-0.7) Basophils # (Auto) 0.1 x10^3/uL (0.0-0.2) Prothrombin Time 16.2 SEC (11.7-14.0) Prothromb Time International Ratio 1.4 (0.8-1.1) Activated Partial Thromboplast Time 33 SEC (24-38) Sodium Level 138 mmol/L (136-145) Potassium Level 4.0 mmol/L (3.5-5.1) Chloride Level 102 mmol/L (98-107) Carbon Dioxide Level 25 mmol/L (21-32) Anion Gap 11 (6-14) Blood Urea Nitrogen 13 mg/dL (8-26) Creatinine 1.2 mg/dL (0.7-1.3) Estimated GFR (Cockcroft-Gault) 72.9 Glucose Level 202 mg/dL (70-99) Calcium Level 9.7 mg/dL (8.5-10.1) Magnesium Level 1.9 mg/dL (1.8-2.4) Troponin I Quantitative < 0.017 ng/mL (0.000-0.055) HS-Bra-G-Type Natriuretic Peptide 1567 pg/mL (0-124) Glucose (Fingerstick) 118 mg/dL (70-99) 280 mg/dL (70-99) Laboratory Tests Test 10/05/16 08:32 10/05/16 12:49 Glucose (Fingerstick) 118 mg/dL (70-99) 280 mg/dL (70-99) Medications Current Medications Ondansetron HCl (Zofran) 4 mg PRN Q8HRS PRN IV NAUSEA/VOMITING; Start 10/04/16 at 13:30; Stop 10/05/16 at 13:29; Status DC Acetaminophen (Tylenol) 650 mg PRN Q4HRS PRN PO FEVER; Start 10/04/16 at 13:30; Stop 10/05/16 at 13:29; Status DC Carvedilol (Coreg) 25 mg BIDWMEALS PO Last administered on 10/04/16 17:44; Start 10/04/16 at 17:00; Stop 10/05/16 at 08:17; Status DC Lisinopril (Prinivil) 40 mg DAILY PO Last administered on 10/05/16 09:25; Start 10/05/16 at 09:00 Furosemide (Lasix) 40 mg DAILY IVP Last administered on 10/05/16 09:25; Start 10/05/16 at 09:00 Potassium Chloride (Klor-Con) 20 meq DAILYWBKFT PO Last administered on 09:19; Start 10/05/16 at 08:00 Apixaban (Eliquis) 5 mg BID PO Last administered on 10/05/16 09:21; Start at 21:00 Info (Anti-Coagulation Monitoring By Pharmacy) 1 each PRN DAILY PRN MC SEE COMMENTS Last administered on 10/05/16 09:52; Start 10/04/16 at 16:30 Sennosides (Senna) 8.6 mg PRN BID PRN PO CONSTIPATION; Start 10/04/16 at 21:15 Amlodipine Besylate (Norvasc) 10 mg DAILY PO Last administered on 10/05/16 09: 25; Start 10/05/16 at 09:00 Aspirin (Ecotrin) 81 mg DAILYWBKFT PO Last administered on 10/05/16 09:18; Start 10/05/16 at 08:00 Furosemide (Lasix) 40 mg DAILY PO ; Start 10/05/16 at 09:00; Stop 10/05/16 at 09: 00; Status DC Lisinopril (Prinivil) 40 mg DAILY PO ; Start 10/05/16 at 09:00; Stop 10/05/16 at 09:54; Status DC Metformin HCl (Glucophage) 1,000 mg BIDWMEALS PO Last administered on 10/05/16 10:03; Start 10/05/16 at 08:00 Metoprolol Succinate (Toprol Xl) 200 mg DAILY PO ; Start 10/05/16 at 09:00; Stop 10/05/16 at 09:00; Status DC Atorvastatin Calcium (Lipitor) 5 mg QHS PO Last administered on 10/04/16 21:55 ; Start 10/04/16 at 22:00 Tramadol HCl (Ultram) 50 mg BID PO Last administered on 10/05/16 09:21; Start 10/04/16 at 22:00 Duloxetine HCl (Cymbalta) 60 mg BID PO Last administered on 10/05/16 09:19; Start 10/05/16 at 09:00 Gabapentin (Neurontin) 300 mg TID PO Last administered on 10/05/16 14:02; Start 10/04/16 at 22:00 Indapamide (Lozol) 1.25 mg DAILY PO Last administered on 10/05/16 10:03; Start 10/05/16 at 09:00 Carvedilol (Coreg) 25 mg BIDWMEALS PO ; Start 10/05/16 at 17:00 Insulin Aspart (NovoLOG) 0-9 UNITS TIDWMEALS SQ Last administered on 10/05/16 13:41; Start 10/05/16 at 13:28 Dextrose (Dextrose 50%-Water Syringe) 12.5 gm PRN Q15MIN PRN IV SEE COMMENTS; Start 10/05/16 at 13:30 Active Scripts Active Eliquis (Apixaban) 5 Mg Tablet 5 Mg PO BID Lisinopril 40 Mg Tablet 40 Mg PO DAILY Furosemide 40 Mg Tablet 40 Mg PO DAILY Metoprolol Succinate ( Xl ) (Metoprolol Succinate) 100 Mg Tab.er.24h 200 Mg PO DAILY Aspirin Ec (Aspirin) 81 Mg Tablet. 81 Mg PO DAILYWBKFT Amlodipine Besylate 10 Mg Tablet 10 Mg PO DAILY Reported Gabapentin 300 Mg Capsule 300 Mg PO TID Tramadol Hcl 50 Mg Tablet 1 Tab PO BID Metformin Hcl 1,000 Mg Tablet 1 Tab PO BID Carvedilol 25 Mg Tablet 1 Tab PO BID Indapamide 1.25 Mg Tablet 1 Tab PO DAILY Cymbalta (Duloxetine Hcl) 60 Mg Capsule.dr Zita Enriquez PO BID Warfarin Sodium 4 Mg Tablet 1 Tab PO DAILY Simvastatin 10 Mg Tablet 1 Tab PO QHS Vitals/I & O Vital Sign - Last 24 Hours 10/04/16 10/04/16 10/04/16 10/04/16 14:45 17:42 17:44 19:00 Pulse 63 63 B/P (MAP) 103/71 (82) 103/71 O2 Delivery Nasal Cannula Nasal Cannula O2 Flow Rate 2.0 2.0 10/04/16 10/04/16 10/04/16 10/04/16 19:10 21:55 22:50 22:55 Temp 97.5 97.6 97.5 97.6 Pulse 72 70 Resp 18 18 18 18 B/P (MAP) 107/77 (87) 120/83 (95) Pulse Ox 97 97 94 O2 Delivery Nasal Cannula Nasal Cannula Nasal Cannula O2 Flow Rate 2.0 2.0 2.0 10/05/16 10/05/16 10/05/16 10/05/16 01:12 03:00 03:01 07:30 Temp 97.3 98.1 97.3 98.1 Pulse 68 73 Resp 18 18 B/P (MAP) 92/66 (75) 102/50 (67) Pulse Ox 94 95 94 O2 Delivery Nasal Cannula Room Air O2 Flow Rate 2.0 10/05/16 10/05/16 10/05/16 10/05/16 08:59 09:21 09:25 09:25 Pulse 73 73 B/P (MAP) 113/73 113/73 Pulse Ox 94 O2 Delivery Nasal Cannula Nasal Cannula O2 Flow Rate 2.0 2.0 10/05/16 10/05/16 10:23 11:07 Temp 98.7 98.7 Pulse 71 Resp 20 B/P (MAP) 128/78 (95) Pulse Ox 94 93 O2 Delivery Nasal Cannula Room Air O2 Flow Rate 2.0 Intake and Output 10/04/16 10/04/16 10/05/16 15:00 23:00 07:00 Intake Total 300 ml Output Total 400 ml 1000 ml Balance -400 ml -700 ml GELY YAO MD Oct 05, 2016 14:42
[2016-10-05 15:00] VITALS: BP 100/63
--- NOTE | 2016-10-05 15:07 | PDOC ---
CARDIO Progress Notes Date and Time Date of Service 10/05/16 Time of Evaluation 1500 Subjective Subjective: No Chest Pain, No Palpitations, Other (c/o SOA ) Vitals Vitals Vital Signs Date Time Temp Pulse Resp B/P (MAP) Pulse Ox O2 Delivery O2 Flow Rate FiO2 10/05/16 11:07 98.7 71 20 128/78 (95) 93 Room Air 98.7 10/05/16 10:23 2.0 Weight Weight [ ] Input and Output Intake and Output Intake and Output 10/05/16 07:00 Intake Total 300 ml Output Total 1400 ml Balance -1100 ml Intake Oral 300 ml Output Urine Total 1400 ml Laboratory Labs Laboratory Tests Test 10/05/16 08:32 10/05/16 12:49 Glucose (Fingerstick) 118 mg/dL (70-99) 280 mg/dL (70-99) Physical Exam HEENT: Neck Supple W Full Motion Chest: Symmetric LUNGS: Other (faint expiratory wheezes, bibasilar rhonchi) Heart: S1S2, irregularly irregular, other (2/6 systolic murmur ) Abdomen: Soft N/T, Other (obese ) Extremities: No Calf Tenderness, Other (1+ bilateral LE edema ) Neurology: alert, oriented, follow commands Assessment Assessment 1. Mild acute on chronic systolic heart failure 2. NICM; LVEF 15-20% 3. PHTN 4. Hypertension 5. Paroxysmal atrial fibrillation/flutter 6. Diabetes mellitus 7. Hyperlipidemia Recommendations Continue diuresis with monitoring or renal function; am labs Reinforced medical compliance Rate controlled with BB. On Eliquis for stroke prevention Patient considering LifeVest at discharge; reassess LV function in 3 months, on an outpatient basis, to assess need for AICD in prevention of SCD. ABEL ALMENDAREZ APRN Oct 05, 2016 15:07
[2016-10-05] MEDS: CARVEDILOL 12.5 MG TABLET. PO SCH (17:34)
[2016-10-05 19:28] VITALS: BP 122/75
[2016-10-05] MEDS: ATORVASTATIN CALCIUM 10 MG TABLET. PO SCH (20:47)
[2016-10-05 23:15] VITALS: BP 119/75
[2016-10-06 03:00] VITALS: BP 111/65
[2016-10-06 05:56] LABS: CALCIUM 9.6 mg/dL (8.5-10.1); GFR 89.9; MAGNESIUM 2.1 mg/dL (1.8-2.4); POTASSIUM 3.6 mmol/L (3.5-5.1)
[2016-10-06 07:00] VITALS: BP 140/84
[2016-10-06] MEDS: INSULIN ASPART 300 UNITS/3 ML INSULN.PEN SQ SCH ×3 (08:00→17:00)
[2016-10-06] MEDS: ASPIRIN ENTERIC COATED 81 MG TABLET.DR. PO SCH (09:46)
[2016-10-06] MEDS: CARVEDILOL 12.5 MG TABLET. PO SCH ×2 (09:53→17:41)
[2016-10-06] MEDS: POTASSIUM CHLORIDE 20 MEQ TABLET.ER. PO SCH (09:54)
[2016-10-06] MEDS: INDAPAMIDE 2.5 MG TABLET PO SCH (09:54)
[2016-10-06] MEDS: traMADol 50 MG TABLET PO SCH ×2 (09:56→20:59)
[2016-10-06] MEDS: APIXABAN 5 MG TABLET. PO SCH ×2 (09:56→21:00)
[2016-10-06] MEDS: DULoxetine HCL 30 MG CAPSULE.DR PO SCH ×2 (09:57→20:59)
[2016-10-06] MEDS: GABAPENTIN 300 MG CAPSULE. PO SCH ×3 (09:57→20:59)
[2016-10-06] MEDS: amLODIPine BESYLATE 10 MG TABLET PO SCH (09:58)
[2016-10-06] MEDS: LISINOPRIL 40 MG TABLET. PO SCH (09:59)
[2016-10-06] MEDS: FUROSEMIDE 40 MG/4 ML VIAL. IVP SCH (10:04)
[2016-10-06 10:43] VITALS: BP 181/131
[2016-10-06] MEDS ORDERED: POLYETHYLENE GLYCOL 3350 17 GM PACKET. PO PRN (11:00)
[2016-10-06] MEDS ORDERED: ACETAMINOPHEN 325 MG TABLET. PO PRN (11:00)
--- NOTE | 2016-10-06 11:12 | PDOC ---
PROGRESS NOTES Chief Complaint Chief Complaint cc: SOB a/p 1. Acute on chronic systolic heart failure: on iV diuresis, monitor electrolytes, and intake, out put, Negative, continue as per cardiology recommendations. labs reviewed, Cr stable. 2. NICM: EF 15%, life vest at [place], cardiology following 3. Obesity with PHTN - PAS 70 mmHg, PRN BIPAP at HS. 4. Hypertension Stable. 5. atrial fibrillation/flutter : paroxysmal, rate controlled 6. Diabetes mellitus with hyperglycemia: SSI 7. Hyperlipidemia : continue statin 8. PT/OT- Limited mobility may need SNU Placement, PT is working with him History of Present Illness History of Present Illness SOB NO MOBILITY RESTRICTED. NO CHEST PAIN NEED PT/OT Vitals Vitals Vital Signs Date Time Temp Pulse Resp B/P (MAP) Pulse Ox O2 Delivery O2 Flow Rate FiO2 10/06/16 10:43 97.1 76 22 181/131 (148) 96 Nasal Cannula 2.0 97.1 Physical Exam General: Alert, Oriented X3, Cooperative, mild distress, Other (OBESE) Heart: Normal S1, Normal S2, Other (irregular rate and rhythm, +systolic murmur, no S3S4) Lungs: Other (RALES, WHEEZING. ) Abdomen: Normal bowel sounds, Soft Extremities: No clubbing Labs LABS Laboratory Tests Test 10/05/16 12:49 10/05/16 17:40 10/05/16 20:46 10/06/16 05:00 Glucose (Fingerstick) 280 mg/dL (70-99) 146 mg/dL (70-99) 186 mg/dL (70-99) Sodium Level 139 mmol/L (136-145) Potassium Level 3.6 mmol/L (3.5-5.1) Chloride Level 102 mmol/L (98-107) Carbon Dioxide Level 30 mmol/L (21-32) Anion Gap 7 (6-14) Blood Urea Nitrogen 15 mg/dL (8-26) Creatinine 1.0 mg/dL (0.7-1.3) Estimated GFR (Cockcroft-Gault) 89.9 Glucose Level 105 mg/dL (70-99) Calcium Level 9.6 mg/dL (8.5-10.1) Magnesium Level 2.1 mg/dL (1.8-2.4) Test 10/06/16 07:43 Glucose (Fingerstick) 109 mg/dL (70-99) Assessment and Plan Assessmemt and Plan Problems Medical Problems: (1) CHF exacerbation Status: Acute Problems: Comment Review of Relevant I have reviewed the following items rashid (where applicable) has been applied. Labs Laboratory Tests Test 10/04/16 11:35 10/05/16 08:32 10/05/16 12:49 10/05/16 17:40 White Blood Count 6.6 x10^3/uL (4.0-11.0) Red Blood Count 4.75 x10^6/uL (4.30-5.70) Hemoglobin 12.9 g/dL (13.0-17.5) Hematocrit 40.9 % (39.0-53.0) Mean Corpuscular Volume 86 fL (79-100) Mean Corpuscular Hemoglobin 27 pg (25-35) Mean Corpuscular Hemoglobin Concent 32 g/dL (31-37) Red Cell Distribution Width 16.7 % (11.5-14.5) Platelet Count 298 x10^3/uL (140-400) Neutrophils (%) (Auto) 59 % (31-73) Lymphocytes (%) (Auto) 28 % (24-48) Monocytes (%) (Auto) 9 % (0-9) Eosinophils (%) (Auto) 3 % (0-3) Basophils (%) (Auto) 1 % (0-3) Neutrophils # (Auto) 3.9 x10^3uL (1.8-7.7) Lymphocytes # (Auto) 1.9 x10^3/uL (1.0-4.8) Monocytes # (Auto) 0.6 x10^3/uL (0.0-1.1) Eosinophils # (Auto) 0.2 x10^3/uL (0.0-0.7) Basophils # (Auto) 0.1 x10^3/uL (0.0-0.2) Prothrombin Time 16.2 SEC (11.7-14.0) Prothromb Time International Ratio 1.4 (0.8-1.1) Activated Partial Thromboplast Time 33 SEC (24-38) Sodium Level 138 mmol/L (136-145) Potassium Level 4.0 mmol/L (3.5-5.1) Chloride Level 102 mmol/L (98-107) Carbon Dioxide Level 25 mmol/L (21-32) Anion Gap 11 (6-14) Blood Urea Nitrogen 13 mg/dL (8-26) Creatinine 1.2 mg/dL (0.7-1.3) Estimated GFR (Cockcroft-Gault) 72.9 Glucose Level 202 mg/dL (70-99) Calcium Level 9.7 mg/dL (8.5-10.1) Magnesium Level 1.9 mg/dL (1.8-2.4) Troponin I Quantitative < 0.017 ng/mL (0.000-0.055) BV-Lmp-G-Type Natriuretic Peptide 1567 pg/mL (0-124) Glucose (Fingerstick) 118 mg/dL (70-99) 280 mg/dL (70-99) 146 mg/dL (70-99) Test 10/05/16 20:46 10/06/16 05:00 10/06/16 07:43 Glucose (Fingerstick) 186 mg/dL (70-99) 109 mg/dL (70-99) Sodium Level 139 mmol/L (136-145) Potassium Level 3.6 mmol/L (3.5-5.1) Chloride Level 102 mmol/L (98-107) Carbon Dioxide Level 30 mmol/L (21-32) Anion Gap 7 (6-14) Blood Urea Nitrogen 15 mg/dL (8-26) Creatinine 1.0 mg/dL (0.7-1.3) Estimated GFR (Cockcroft-Gault) 89.9 Glucose Level 105 mg/dL (70-99) Calcium Level 9.6 mg/dL (8.5-10.1) Magnesium Level 2.1 mg/dL (1.8-2.4) Laboratory Tests Test 10/05/16 12:49 10/05/16 17:40 10/05/16 20:46 10/06/16 05:00 Glucose (Fingerstick) 280 mg/dL (70-99) 146 mg/dL (70-99) 186 mg/dL (70-99) Sodium Level 139 mmol/L (136-145) Potassium Level 3.6 mmol/L (3.5-5.1) Chloride Level 102 mmol/L (98-107) Carbon Dioxide Level 30 mmol/L (21-32) Anion Gap 7 (6-14) Blood Urea Nitrogen 15 mg/dL (8-26) Creatinine 1.0 mg/dL (0.7-1.3) Estimated GFR (Cockcroft-Gault) 89.9 Glucose Level 105 mg/dL (70-99) Calcium Level 9.6 mg/dL (8.5-10.1) Magnesium Level 2.1 mg/dL (1.8-2.4) Test 10/06/16 07:43 Glucose (Fingerstick) 109 mg/dL (70-99) Medications Current Medications Ondansetron HCl (Zofran) 4 mg PRN Q8HRS PRN IV NAUSEA/VOMITING; Start 10/04/16 at 13:30; Stop 10/05/16 at 13:29; Status DC Acetaminophen (Tylenol) 650 mg PRN Q4HRS PRN PO FEVER; Start 10/04/16 at 13:30; Stop 10/05/16 at 13:29; Status DC Carvedilol (Coreg) 25 mg BIDWMEALS PO Last administered on 10/04/16 17:44; Start 10/04/16 at 17:00; Stop 10/05/16 at 08:17; Status DC Lisinopril (Prinivil) 40 mg DAILY PO Last administered on 10/06/16 09:59; Start 10/05/16 at 09:00 Furosemide (Lasix) 40 mg DAILY IVP Last administered on 10/06/16 10:04; Start 10/05/16 at 09:00 Potassium Chloride (Klor-Con) 20 meq DAILYWBKFT PO Last administered on 09:54; Start 10/05/16 at 08:00 Apixaban (Eliquis) 5 mg BID PO Last administered on 10/06/16 09:56; Start at 21:00 Info (Anti-Coagulation Monitoring By Pharmacy) 1 each PRN DAILY PRN MC SEE COMMENTS Last administered on 10/05/16 09:52; Start 10/04/16 at 16:30 Sennosides (Senna) 8.6 mg PRN BID PRN PO CONSTIPATION Last administered on 19:37; Start 10/04/16 at 21:15 Amlodipine Besylate (Norvasc) 10 mg DAILY PO Last administered on 10/06/16 09: 58; Start 10/05/16 at 09:00 Aspirin (Ecotrin) 81 mg DAILYWBKFT PO Last administered on 10/06/16 09:46; Start 10/05/16 at 08:00 Furosemide (Lasix) 40 mg DAILY PO ; Start 10/05/16 at 09:00; Stop 10/05/16 at 09: 00; Status DC Lisinopril (Prinivil) 40 mg DAILY PO ; Start 10/05/16 at 09:00; Stop 10/05/16 at 09:54; Status DC Metformin HCl (Glucophage) 1,000 mg BIDWMEALS PO Last administered on 10/06/16 09:54; Start 10/05/16 at 08:00 Metoprolol Succinate (Toprol Xl) 200 mg DAILY PO ; Start 10/05/16 at 09:00; Stop 10/05/16 at 09:00; Status DC Atorvastatin Calcium (Lipitor) 5 mg QHS PO Last administered on 10/05/16 20:47 ; Start 10/04/16 at 22:00 Tramadol HCl (Ultram) 50 mg BID PO Last administered on 10/06/16 09:56; Start 10/04/16 at 22:00 Duloxetine HCl (Cymbalta) 60 mg BID PO Last administered on 10/06/16 09:57; Start 10/05/16 at 09:00 Gabapentin (Neurontin) 300 mg TID PO Last administered on 10/06/16 09:57; Start 10/04/16 at 22:00 Indapamide (Lozol) 1.25 mg DAILY PO Last administered on 10/06/16 09:54; Start 10/05/16 at 09:00 Carvedilol (Coreg) 25 mg BIDWMEALS PO Last administered on 10/06/16 09:53; Start 10/05/16 at 17:00 Insulin Aspart (NovoLOG) 0-9 UNITS TIDWMEALS SQ Last administered on 10/05/16 13:41; Start 10/05/16 at 13:28 Dextrose (Dextrose 50%-Water Syringe) 12.5 gm PRN Q15MIN PRN IV SEE COMMENTS; Start 10/05/16 at 13:30 Acetaminophen (Tylenol) 650 mg PRN Q6HRS PRN PO PAIN; Start 10/06/16 at 11:00 Polyethylene Glycol (miraLAX PACKET) 17 gm PRN DAILY PRN PO CONSTIPATION; Start 10/06/16 at 11:00 Active Scripts Active Eliquis (Apixaban) 5 Mg Tablet 5 Mg PO BID Lisinopril 40 Mg Tablet 40 Mg PO DAILY Furosemide 40 Mg Tablet 40 Mg PO DAILY Metoprolol Succinate ( Xl ) (Metoprolol Succinate) 100 Mg Tab.er.24h 200 Mg PO DAILY Aspirin Ec (Aspirin) 81 Mg Tablet.dr 81 Mg PO DAILYWBKFT Amlodipine Besylate 10 Mg Tablet 10 Mg PO DAILY Reported Gabapentin 300 Mg Capsule 300 Mg PO TID Tramadol Hcl 50 Mg Tablet 1 Tab PO BID Metformin Hcl 1,000 Mg Tablet 1 Tab PO BID Carvedilol 25 Mg Tablet 1 Tab PO BID Indapamide 1.25 Mg Tablet 1 Tab PO DAILY Cymbalta (Duloxetine Hcl) 60 Mg Capsule. 1 Cap PO BID Warfarin Sodium 4 Mg Tablet 1 Tab PO DAILY Simvastatin 10 Mg Tablet 1 Tab PO QHS Vitals/I & O Vital Sign - Last 24 Hours 10/05/16 10/05/16 10/05/16 10/05/16 15:00 17:34 19:25 19:28 Temp 98.1 97.6 98.1 97.6 Pulse 70 71 60 Resp 18 18 B/P (MAP) 100/63 (75) 128/78 122/75 (91) Pulse Ox 98 96 O2 Delivery Room Air Nasal Cannula Nasal Cannula O2 Flow Rate 2.0 2.0 10/05/16 10/05/16 10/05/16 10/05/16 20:47 21:50 23:15 23:40 Temp 97.5 97.5 Pulse 55 Resp 18 18 B/P (MAP) 119/75 (90) Pulse Ox 96 94 96 94 O2 Delivery Nasal Cannula Nasal Cannula Nasal Cannula O2 Flow Rate 2.0 2.0 2.0 10/06/16 10/06/16 10/06/16 10/06/16 01:17 03:00 03:45 07:00 Temp 97.7 97.8 97.7 97.8 Pulse 60 61 Resp 18 19 B/P (MAP) 111/65 (80) 140/84 (102) Pulse Ox 94 98 94 95 O2 Delivery BiPAP/CPAP BiPAP/CPAP 10/06/16 10/06/16 10/06/16 10/06/16 07:25 09:53 09:56 09:58 Pulse 103 87 Resp 18 B/P (MAP) 140/84 Pulse Ox 95 O2 Delivery Nasal Cannula Nasal Cannula O2 Flow Rate 2.0 2.0 10/06/16 10/06/16 09:59 10:43 Temp 97.1 97.1 Pulse 78 76 Resp 22 B/P (MAP) 140/84 181/131 (148) Pulse Ox 96 O2 Delivery Nasal Cannula O2 Flow Rate 2.0 Intake and Output 10/05/16 10/05/16 10/06/16 15:00 23:00 07:00 Intake Total 1868 ml 400 ml Output Total 3550 ml 950 ml Balance -1682 ml -550 ml GELY YAO MD Oct 06, 2016 11:12
[2016-10-06 14:42] VITALS: BP 144/78
--- NOTE | 2016-10-06 15:13 | PDOC ---
CARDIO Progress Notes Date and Time Date of Service 10/06/16 Time of Evaluation 1410 Subjective Subjective: No Chest Pain, No Palpitations, Other (SOA better) Comments: combative with staff this afternoon Vitals Vitals Vital Signs Date Time Temp Pulse Resp B/P (MAP) Pulse Ox O2 Delivery O2 Flow Rate FiO2 10/06/16 14:42 97.8 75 20 144/78 (100) 97 Nasal Cannula 2.0 97.8 Weight Weight [ ] Input and Output Intake and Output Intake and Output 10/06/16 07:00 Intake Total 2268 ml Output Total 4500 ml Balance -2232 ml Intake Oral 2268 ml Output Urine Total 4500 ml Laboratory Labs Laboratory Tests Test 10/05/16 17:40 10/05/16 20:46 10/06/16 05:00 10/06/16 07:43 Glucose (Fingerstick) 146 mg/dL (70-99) 186 mg/dL (70-99) 109 mg/dL (70-99) Sodium Level 139 mmol/L (136-145) Potassium Level 3.6 mmol/L (3.5-5.1) Chloride Level 102 mmol/L (98-107) Carbon Dioxide Level 30 mmol/L (21-32) Anion Gap 7 (6-14) Blood Urea Nitrogen 15 mg/dL (8-26) Creatinine 1.0 mg/dL (0.7-1.3) Estimated GFR (Cockcroft-Gault) 89.9 Glucose Level 105 mg/dL (70-99) Calcium Level 9.6 mg/dL (8.5-10.1) Magnesium Level 2.1 mg/dL (1.8-2.4) Test 10/06/16 11:55 Glucose (Fingerstick) 182 mg/dL (70-99) Physical Exam HEENT: Neck Supple W Full Motion Chest: Symmetric LUNGS: Other (diminished bases) Heart: S1S2, irregularly irregular, other (2/6 systolic murmur ) Abdomen: Soft N/T, Other (obese ) Extremities: No Calf Tenderness, Other (1+ bilateral LE edema ) Neurology: alert, oriented, follow commands Assessment Assessment 1. Mild acute on chronic systolic heart failure 2. NICM; LVEF 15-20% 3. PHTN 4. Hypertension 5. Paroxysmal atrial fibrillation/flutter 6. Diabetes mellitus 7. Hyperlipidemia Recommendations Continue diuresis with monitoring or renal function Rate controlled with BB. Continue Eliquis for stroke prevention Would like to defer LifeVest for now; will consider after discharge from rehab facility. Reassess LV function in 3 months, on an outpatient basis, to assess need for AICD in prevention of SCD. ABEL ALMENDAREZ APRN Oct 06, 2016 15:13
[2016-10-06 19:52] VITALS: BP 118/66
[2016-10-06] MEDS: ATORVASTATIN CALCIUM 10 MG TABLET. PO SCH (21:00)
[2016-10-06 22:38] VITALS: BP 97/67
[2016-10-07 03:17] VITALS: BP 102/70
[2016-10-07 07:00] VITALS: BP 128/86
[2016-10-07] MEDS: INSULIN ASPART 300 UNITS/3 ML INSULN.PEN SQ SCH ×2 (08:00→12:28)
[2016-10-07] MEDS: ASPIRIN ENTERIC COATED 81 MG TABLET.DR. PO SCH (08:26)
[2016-10-07] MEDS: GABAPENTIN 300 MG CAPSULE. PO SCH ×2 (08:26→14:43)
[2016-10-07] MEDS: LISINOPRIL 40 MG TABLET. PO SCH (08:26)
[2016-10-07] MEDS: POTASSIUM CHLORIDE 20 MEQ TABLET.ER. PO SCH (08:26)
[2016-10-07] MEDS: traMADol 50 MG TABLET PO SCH (08:27)
[2016-10-07] MEDS: amLODIPine BESYLATE 10 MG TABLET PO SCH (08:27)
[2016-10-07] MEDS: CARVEDILOL 12.5 MG TABLET. PO SCH (08:27)
--- NOTE | 2016-10-07 08:27 | PDOC ---
PROGRESS NOTES Chief Complaint Chief Complaint cc: SOB a/p 1. Acute on chronic systolic heart failure: on PO diuresis, monitor electrolytes, and intake, out put, Negative, continue as per cardiology recommendations. labs ordered, Cr stable. 2. NICM: EF 15%, life vest at DC, cardiology following 3. Obesity with PHTN - PAS 70 mmHg, PRN BIPAP at HS. 4. Hypertension Stable. 5. atrial fibrillation/flutter : paroxysmal, rate controlled 6. Diabetes mellitus with hyperglycemia: SSI 7. Hyperlipidemia : continue statin 8. Limited mobility SNU Placement, History of Present Illness History of Present Illness SOB NO MOBILITY RESTRICTED. NO CHEST PAIN NEED PT/OT Vitals Vitals Vital Signs Date Time Temp Pulse Resp B/P (MAP) Pulse Ox O2 Delivery O2 Flow Rate FiO2 10/07/16 03:17 96.8 61 18 102/70 (81) 93 BiPAP/CPAP 96.8 10/06/16 22:38 2.0 Physical Exam General: Alert, Oriented X3, Cooperative, mild distress, Other (OBESE) Heart: Normal S1, Normal S2, Other (irregular rate and rhythm, +systolic murmur, no S3S4) Lungs: Other (RALES, WHEEZING. ) Abdomen: Normal bowel sounds, Soft Extremities: No clubbing Labs LABS Laboratory Tests Test 10/06/16 11:55 10/06/16 17:18 10/06/16 20:25 10/07/16 07:49 Glucose (Fingerstick) 182 mg/dL (70-99) 134 mg/dL (70-99) 147 mg/dL (70-99) 106 mg/dL (70-99) Assessment and Plan Assessmemt and Plan Problems Medical Problems: (1) CHF exacerbation Status: Acute Problems: Comment Review of Relevant I have reviewed the following items rashid (where applicable) has been applied. Labs Laboratory Tests Test 10/05/16 08:32 10/05/16 12:49 10/05/16 17:40 10/05/16 20:46 Glucose (Fingerstick) 118 mg/dL (70-99) 280 mg/dL (70-99) 146 mg/dL (70-99) 186 mg/dL (70-99) Test 10/06/16 05:00 10/06/16 07:43 10/06/16 11:55 10/06/16 17:18 Sodium Level 139 mmol/L (136-145) Potassium Level 3.6 mmol/L (3.5-5.1) Chloride Level 102 mmol/L (98-107) Carbon Dioxide Level 30 mmol/L (21-32) Anion Gap 7 (6-14) Blood Urea Nitrogen 15 mg/dL (8-26) Creatinine 1.0 mg/dL (0.7-1.3) Estimated GFR (Cockcroft-Gault) 89.9 Glucose Level 105 mg/dL (70-99) Calcium Level 9.6 mg/dL (8.5-10.1) Magnesium Level 2.1 mg/dL (1.8-2.4) Glucose (Fingerstick) 109 mg/dL (70-99) 182 mg/dL (70-99) 134 mg/dL (70-99) Test 10/06/16 20:25 10/07/16 07:49 Glucose (Fingerstick) 147 mg/dL (70-99) 106 mg/dL (70-99) Laboratory Tests Test 10/06/16 11:55 10/06/16 17:18 10/06/16 20:25 10/07/16 07:49 Glucose (Fingerstick) 182 mg/dL (70-99) 134 mg/dL (70-99) 147 mg/dL (70-99) 106 mg/dL (70-99) Medications Current Medications Ondansetron HCl (Zofran) 4 mg PRN Q8HRS PRN IV NAUSEA/VOMITING; Start 10/04/16 at 13:30; Stop 10/05/16 at 13:29; Status DC Acetaminophen (Tylenol) 650 mg PRN Q4HRS PRN PO FEVER; Start 10/04/16 at 13:30; Stop 10/05/16 at 13:29; Status DC Carvedilol (Coreg) 25 mg BIDWMEALS PO Last administered on 10/04/16 17:44; Start 10/04/16 at 17:00; Stop 10/05/16 at 08:17; Status DC Lisinopril (Prinivil) 40 mg DAILY PO Last administered on 10/06/16 09:59; Start 10/05/16 at 09:00 Furosemide (Lasix) 40 mg DAILY IVP Last administered on 10/06/16 10:04; Start 10/05/16 at 09:00 Potassium Chloride (Klor-Con) 20 meq DAILYWBKFT PO Last administered on 09:54; Start 10/05/16 at 08:00 Apixaban (Eliquis) 5 mg BID PO Last administered on 10/06/16 21:00; Start at 21:00 Info (Anti-Coagulation Monitoring By Pharmacy) 1 each PRN DAILY PRN MC SEE COMMENTS Last administered on 10/05/16 09:52; Start 10/04/16 at 16:30 Sennosides (Senna) 8.6 mg PRN BID PRN PO CONSTIPATION Last administered on 19:37; Start 10/04/16 at 21:15 Amlodipine Besylate (Norvasc) 10 mg DAILY PO Last administered on 10/06/16 09: 58; Start 10/05/16 at 09:00 Aspirin (Ecotrin) 81 mg DAILYWBKFT PO Last administered on 10/06/16 09:46; Start 10/05/16 at 08:00 Furosemide (Lasix) 40 mg DAILY PO ; Start 10/05/16 at 09:00; Stop 10/05/16 at 09: 00; Status DC Lisinopril (Prinivil) 40 mg DAILY PO ; Start 10/05/16 at 09:00; Stop 10/05/16 at 09:54; Status DC Metformin HCl (Glucophage) 1,000 mg BIDWMEALS PO Last administered on 10/06/16 17:40; Start 10/05/16 at 08:00 Metoprolol Succinate (Toprol Xl) 200 mg DAILY PO ; Start 10/05/16 at 09:00; Stop 10/05/16 at 09:00; Status DC Atorvastatin Calcium (Lipitor) 5 mg QHS PO Last administered on 10/06/16 21:00 ; Start 10/04/16 at 22:00 Tramadol HCl (Ultram) 50 mg BID PO Last administered on 10/06/16 20:59; Start 10/04/16 at 22:00 Duloxetine HCl (Cymbalta) 60 mg BID PO Last administered on 10/06/16 20:59; Start 10/05/16 at 09:00 Gabapentin (Neurontin) 300 mg TID PO Last administered on 10/06/16 20:59; Start 10/04/16 at 22:00 Indapamide (Lozol) 1.25 mg DAILY PO Last administered on 10/06/16 09:54; Start 10/05/16 at 09:00 Carvedilol (Coreg) 25 mg BIDWMEALS PO Last administered on 10/06/16 17:41; Start 10/05/16 at 17:00 Insulin Aspart (NovoLOG) 0-9 UNITS TIDWMEALS SQ Last administered on 10/06/16 12:58; Start 10/05/16 at 13:28 Dextrose (Dextrose 50%-Water Syringe) 12.5 gm PRN Q15MIN PRN IV SEE COMMENTS; Start 10/05/16 at 13:30 Acetaminophen (Tylenol) 650 mg PRN Q6HRS PRN PO PAIN Last administered on 11:35; Start 10/06/16 at 11:00 Polyethylene Glycol (miraLAX PACKET) 17 gm PRN DAILY PRN PO CONSTIPATION Last administered on 10/06/16 11:35; Start 10/06/16 at 11:00 Active Scripts Active Eliquis (Apixaban) 5 Mg Tablet 5 Mg PO BID Lisinopril 40 Mg Tablet 40 Mg PO DAILY Furosemide 40 Mg Tablet 40 Mg PO DAILY Metoprolol Succinate ( Xl ) (Metoprolol Succinate) 100 Mg Tab.er.24h 200 Mg PO DAILY Aspirin Ec (Aspirin) 81 Mg Tablet. 81 Mg PO DAILYWBKFT Amlodipine Besylate 10 Mg Tablet 10 Mg PO DAILY Reported Gabapentin 300 Mg Capsule 300 Mg PO TID Tramadol Hcl 50 Mg Tablet 1 Tab PO BID Metformin Hcl 1,000 Mg Tablet 1 Tab PO BID Carvedilol 25 Mg Tablet 1 Tab PO BID Indapamide 1.25 Mg Tablet 1 Tab PO DAILY Cymbalta (Duloxetine Hcl) 60 Mg Capsule.dr 1 Cap PO BID Warfarin Sodium 4 Mg Tablet 1 Tab PO DAILY Simvastatin 10 Mg Tablet 1 Tab PO QHS Vitals/I & O Vital Sign - Last 24 Hours 10/06/16 10/06/16 10/06/16 10/06/16 09:53 09:56 09:58 09:59 Pulse 103 87 78 Resp 18 B/P (MAP) 140/84 140/84 Pulse Ox 95 O2 Delivery Nasal Cannula O2 Flow Rate 2.0 10/06/16 10/06/16 10/06/16 10/06/16 10:30 10:43 14:42 17:41 Temp 97.1 97.8 97.1 97.8 Pulse 76 75 75 Resp 22 20 B/P (MAP) 181/131 (148) 144/78 (100) 144/78 Pulse Ox 96 97 O2 Delivery Nasal Cannula Nasal Cannula Nasal Cannula O2 Flow Rate 2.0 2.0 2.0 10/06/16 10/06/16 10/06/16 10/06/16 19:52 19:54 20:59 21:57 Temp 97.4 97.4 Pulse 69 Resp 18 18 16 B/P (MAP) 118/66 (83) Pulse Ox 94 95 94 O2 Delivery Room Air Room Air Nasal Cannula Nasal Cannula O2 Flow Rate 2.0 2.0 10/06/16 10/07/16 10/07/16 10/07/16 22:38 00:43 03:05 03:17 Temp 97.3 96.8 97.3 96.8 Pulse 64 61 Resp 16 18 B/P (MAP) 97/67 (77) 102/70 (81) Pulse Ox 98 94 93 93 O2 Delivery Nasal Cannula BiPAP/CPAP O2 Flow Rate 2.0 Intake and Output 10/06/16 10/06/16 10/07/16 15:00 23:00 07:00 Intake Total 1200 ml Output Total 2550 ml 700 ml Balance -2550 ml 500 ml GEYL YAO MD Oct 07, 2016 08:27
[2016-10-07] MEDS: APIXABAN 5 MG TABLET. PO SCH (08:28)
[2016-10-07] MEDS: DULoxetine HCL 30 MG CAPSULE.DR PO SCH (08:28)
[2016-10-07] MEDS: INDAPAMIDE 2.5 MG TABLET PO SCH (08:28)
[2016-10-07] MEDS ORDERED: FUROSEMIDE 40 MG TABLET. PO SCH (09:00)
[2016-10-07 09:13] LABS: CALCIUM 9.6 mg/dL (8.5-10.1); CREATININE 0.9 mg/dL (0.7-1.3); GFR 101.5; POTASSIUM 4.3 mmol/L (3.5-5.1)
[2016-10-07 09:36] LABS: BASO % 1 % (0-3); EOS % 4 % (0-3); HEMATOCRIT 38.8 % (39.0-53.0); HEMOGLOBIN 12.7 g/dL (13.0-17.5); LYMPH # 1.5 x10^3/uL (1.0-4.8); LYMPH % 26 % (24-48); MEAN CORPUSCULAR HEMOGLOBIN 27 pg (25-35); MEAN CORPUSCULAR HGB CONC 33 g/dL (31-37); MEAN CORPUSCULAR VOLUME 83 fL (79-100); MONO % 9 % (0-9); NEUT % 61 % (31-73); PLATELET COUNT 296 x10^3/uL (140-400); RED BLOOD COUNT 4.66 x10^6/uL (4.30-5.70); RED CELL DISTRIBUTION WIDTH 16.2 % (11.5-14.5); WHITE BLOOD COUNT 5.6 x10^3/uL (4.0-11.0)
[2016-10-07] MEDS: ANTI-COAG MONITOR BY PHARMACY. MC PRN (09:36)
[2016-10-07 11:00] VITALS: BP 144/80
[2016-10-07] MEDS ORDERED: ATOR10TA60 PO (14:36)
[2016-10-07] MEDS ORDERED: POTA20TA82 PO (14:37)
[2016-10-07] MEDS ORDERED: SENN8.6T99 PO (14:37)
[2016-10-07 15:00] VITALS: BP 103/73
== END 2016-10-07 14:45 | DRG 291 ==
LOC: ER 11:33 → 2 NORTH 13:17
PROVIDERS: ADMIT Internal Medicine; ATTEND Internal Medicine
PROC: 5A09357 Assistance with Respiratory Ventilation, Less than 24 Consecutive Hours, Continuous Positive Airway Pressure (ICD-10-PCS; principal; 2016-10-06)
DX: I50.43 Acute on chronic combined systolic (congestive) and diastolic (congestive) heart failure (principal); J96.20 Acute and chronic respiratory failure, unspecified whether with hypoxia or hypercapnia; Z68.41 Body mass index [BMI] 40.0-44.9, adult; I48.92 Unspecified atrial flutter; I42.9 Cardiomyopathy, unspecified; I11.0 Hypertensive heart disease with heart failure; I27.2 Other secondary pulmonary hypertension; K21.9 Gastro-esophageal reflux disease without esophagitis; I48.0 Paroxysmal atrial fibrillation; E66.01 Morbid (severe) obesity due to excess calories; Z96.652 Presence of left artificial knee joint; E78.00 Pure hypercholesterolemia, unspecified; M19.90 Unspecified osteoarthritis, unspecified site; F41.9 Anxiety disorder, unspecified; E11.65 Type 2 diabetes mellitus with hyperglycemia; E78.5 Hyperlipidemia, unspecified; G47.33 Obstructive sleep apnea (adult) (pediatric); I08.1 Rheumatic disorders of both mitral and tricuspid valves; Z90.89 Acquired absence of other organs; Z79.01 Long term (current) use of anticoagulants; Z83.3 Family history of diabetes mellitus; Z85.46 Personal history of malignant neoplasm of prostate; Z86.711 Personal history of pulmonary embolism; Z91.14 Patient's other noncompliance with medication regimen; Z92.3 Personal history of irradiation; Z88.8 Allergy status to other drugs, medicaments and biological substances
CPT/HCPCS: 36415; 71010; 80048; 82962; 83735; 83880; 84484; 85027; 85610; 85730; 93005; 94660; J1815; J1940; 99285-25

== ENCOUNTER → 2017-04-05 | Outpatient (CLI) | payer BC ==
[~2017-04-05] MED LIST changes: +ATOR10TA60 PO; +METO-247 PO; -METO100T11 PO; +POTA20TA82 PO; +SENN8.6T99 PO
--- NOTE | 2017-04-05 15:34 | KCIC ---
CT of the left hand without contrast. Indication: Left third finger PIP joint swelling. Unable to bend third finger. Fell 3 months ago.. . Technique: Contiguous axial images are obtained. Multiplanar reformatted images are also obtained. Exposure: One or more of the following individualized dose reduction techniques were utilized for this examination: 1. Automated exposure control 2. Adjustment of the mA and/or kV according to patient size 3. Use of iterative reconstruction technique. Findings: Severe symmetric joint space narrowing of the third PIP joint. There are ill-defined marginal erosions at the head of the proximal third phalanx, and at the base of the middle third phalanx. Mild soft tissue swelling. Small subchondral cysts at the head of the fourth metacarpal. There is also loss of the subchondral bone, compatible with a central bone erosion. Small subchondral cysts identified at the third metacarpal head. Mild generalized primary osteoarthritis. There is an osteophyte or chronic ossicle posterior to the second metacarpal head. Small os styloid is incidentally noted posterior to the second and third carpometacarpal joint. IMPRESSION: Severe symmetric joint space narrowing at the third PIP joint with marginal erosions. There is soft tissue swelling. This is most compatible with an inflammatory arthritis, such as rheumatoid arthritis, psoriatic arthritis or Alexa's syndrome. Electronically signed by: Tyree Perez MD (04/05/2017 3:31 PM) [id number]
== END | disposition home or self-care (01) ==
LOC: KCIC CT 13:03
PROVIDERS: ATTEND Plastic Surgery
DX: M19.042 Primary osteoarthritis, left hand (principal); M79.89 Other specified soft tissue disorders
CPT/HCPCS: 73200

== ENCOUNTER 2019-04-21 18:38 | Inpatient (IN) | payer BC, MEDICARE ==
[~2019-04-21] VITALS: Ht 193 cm; Wt 116.1 kg
[~2019-04-21 18:38] MED LIST changes: -AMLO10TA2 PO; +AMLO10TA8 PO; +BUME2TAB3 PO; +DICL100G18 TP; +DOXY100T PO; -GABA-586 PO; +GABA300C18 PO; -HYDR-2762 PO; +HYDR-2765 PO; +IPRA3AMP29 NEB; +LISI-130 PO; +LISI-338 PO; +LISI1TAB20 PO; -LISI1TAB7 PO; -LISI40TA PO; -METF-620 PO; +METF10007 PO; +METO-239 PO; +POTA10TA12 PO; +POTA20TA4 PO; -POTA20TA82 PO; +SIMV10TA15 PO; -SIMV10TA3 PO; +UBID100C26 PO; +WARF4TAB64 PO; -WARF4TAB7 PO
[2019-04-21 19:30] LABS: BASO # 0.1 x10^3/uL (0.0-0.2); BASO % 1 % (0-3); EOS % 0 % (0-3); HEMOGLOBIN 13.8 g/dL (13.0-17.5); LYMPH # 1.2 x10^3/uL (1.0-4.8); LYMPH % 20 % (24-48); MEAN CORPUSCULAR HEMOGLOBIN 26 pg (25-35); MEAN CORPUSCULAR HGB CONC 32 g/dL (31-37); MEAN CORPUSCULAR VOLUME 83 fL (79-100); MONO # 0.5 x10^3/uL (0.0-1.1); MONO % 9 % (0-9); NEUT % 70 % (31-73); PLATELET COUNT 422 x10^3/uL (140-400); RED BLOOD COUNT 5.21 x10^6/uL (4.30-5.70); RED CELL DISTRIBUTION WIDTH 21.5 % (11.5-14.5); WHITE BLOOD COUNT 5.8 x10^3/uL (4.0-11.0)
[2019-04-21 20:14] LABS: CALCIUM 9.9 mg/dL (8.5-10.1); CREATININE 0.9 mg/dL (0.7-1.3); GFR 100.9; POTASSIUM 3.5 mmol/L (3.5-5.1)
[2019-04-21 20:15] LABS: PLT ESTIMATE INCREASED (ADEQUATE)
[2019-04-21 20:17] LABS: ANISOCYTOSIS MOD; BIZZARE CELLS FEW; HYPOCHROMIA SLIGHT; OVALOCYTES FEW; POLYCHROMASIA SLIGHT; SCHISTOCYTES OCC; TARGET CELLS OCC
[2019-04-21 20:20] LABS: ALBUMIN 2.7 g/dL (3.4-5.0); ALBUMIN/GLOBULIN RATIO 0.6 (1.0-1.7); TOTAL BILIRUBIN 1.2 mg/dL (0.2-1.0)
--- NOTE | 2019-04-21 21:59 | PHYS DOC ---
Past Medical History Past Medical History: CHF, Diabetes-Type II, High Cholesterol, Heart Disease, Hypertension, Other Additional Past Medical Histor: BLOOD CLOTS, PE Past Surgical History: Knee Replacement, Tonsillectomy, Other Additional Past Surgical Histo: ELBOW X 2, KNEE SCOPE X3, FOOT X2, CARDIAC STENT X 3, ENDOCART/FILTER Alcohol Use: Occasionally Drug Use: Marijuana Adult General Chief Complaint Chief Complaint: ABDOMINAL PAIN HPI HPI Patient is a 68 year old -[place] male who presents with diffuse abdominal pain ongoing for 3 days with multiple episodes of diarrhea. Patient recently admitted at [facility] for unspecified medical complaints. Pat ient states abdominal pain is cramping, worse with bowel movements. Diarrhea is loose and nonbloody. Denies nausea, vomiting. Chest pain shortness of breath. No fever chills sweats. [] Review of Systems Review of Systems ROS as per HPI. All other systems were reviewed and found to be within normal limits, except as documented in this note. Allergies Allergies Allergies Coded Allergies Type Severity Reaction Last Updated Verified fentanyl Allergy Mild Nausea and Vomiting 01/02/16 Yes Physical Exam Physical Exam Constitutional: Well developed, well nourished, no acute distress, non-toxic appearance. [] HENT: Normocephalic, atraumatic, bilateral external ears normal, oropharynx moist, nose normal. [] Eyes: PERRLA, EOMI, conjunctiva normal. [] Neck: Normal range of motion. [] Cardiovascular:Heart rate regular rhythm, no murmur [] Lungs & Thorax: Bilateral breath sounds clear to auscultation [] Abdomen: Bowel sounds normal, soft, min tenderness. [] Skin: Warm, dry, no erythema. [] Back: No tenderness. [] Extremities: No tenderness, no edema. [] Neurologic: Alert and oriented, normal motor function, normal sensory function, no focal deficits noted. [] Psychologic: Affect normal, judgement normal, mood normal. [] Current Patient Data Vital Signs Vital Signs Date Time Temp Pulse Resp B/P (MAP) Pulse Ox O2 Delivery O2 Flow Rate FiO2 04/21/19 18:48 98.1 117 14 124/87 (99) 98 Room Air 98.1 Lab Values Laboratory Tests Test 04/21/19 19:23 04/21/19 19:52 White Blood Count 5.8 x10^3/uL (4.0-11.0) Red Blood Count 5.21 x10^6/uL (4.30-5.70) Hemoglobin 13.8 g/dL (13.0-17.5) Hematocrit 43.0 % (39.0-53.0) Mean Corpuscular Volume 83 fL (79-100) Mean Corpuscular Hemoglobin 26 pg (25-35) Mean Corpuscular Hemoglobin Concent 32 g/dL (31-37) Red Cell Distribution Width 21.5 % (11.5-14.5) H Platelet Count 422 x10^3/uL (140-400) H Neutrophils (%) (Auto) 70 % (31-73) Lymphocytes (%) (Auto) 20 % (24-48) L Monocytes (%) (Auto) 9 % (0-9) Eosinophils (%) (Auto) 0 % (0-3) Basophils (%) (Auto) 1 % (0-3) Neutrophils # (Auto) 4.0 x10^3/uL (1.8-7.7) Lymphocytes # (Auto) 1.2 x10^3/uL (1.0-4.8) Monocytes # (Auto) 0.5 x10^3/uL (0.0-1.1) Eosinophils # (Auto) 0.0 x10^3/uL (0.0-0.7) Basophils # (Auto) 0.1 x10^3/uL (0.0-0.2) Platelet Estimate Increased (ADEQUATE) Large Platelets Few Polychromasia Slight Hypochromasia Slight Anisocytosis Mod Target Cells Occ Ovalocytes Few Schistocytes Occ RBC Morphology Bizarre Forms Few Prothrombin Time 15.5 SEC (11.7-14.0) H Prothrombin Time INR 1.3 (0.8-1.1) H Sodium Level 139 mmol/L (136-145) Potassium Level 3.5 mmol/L (3.5-5.1) Chloride Level 101 mmol/L (98-107) Carbon Dioxide Level 29 mmol/L (21-32) Anion Gap 9 (6-14) Blood Urea Nitrogen 8 mg/dL (8-26) Creatinine 0.9 mg/dL (0.7-1.3) Estimated GFR (Cockcroft-Gault) 100.9 BUN/Creatinine Ratio 9 (6-20) Glucose Level 136 mg/dL (70-99) H Lactic Acid Level 2.4 mmol/L (0.4-2.0) H Calcium Level 9.9 mg/dL (8.5-10.1) Total Bilirubin 1.2 mg/dL (0.2-1.0) H Aspartate Amino Transferase (AST) 17 U/L (15-37) Alanine Aminotransferase (ALT) 14 U/L (16-63) L Alkaline Phosphatase 117 U/L (46-116) H Total Protein 7.0 g/dL (6.4-8.2) Albumin 2.7 g/dL (3.4-5.0) L Albumin/Globulin Ratio 0.6 (1.0-1.7) L Lipase 43 U/L (73-393) L Laboratory Tests 04/21/19 19:23 Laboratory Tests 04/21/19 19:52 EKG EKG [EKG: reviewed] Radiology/Procedures Radiology/Procedures CT abdomen/pelvis: No acute process per radiology report. [] Course & Med Decision Making Course & Med Decision Making Pertinent Labs and Imaging studies reviewed. (See chart for details) [Abdomen soft, nonsurgical exam. Labs, reviewed. Lactic acid elevated. IV fluids given. CT abdomen and pelvis reviewd. Will admit to the hospital service for further evaluation. ] Dragon Disclaimer Dragon Disclaimer This electronic medical record was generated, in whole or in part, using a voice recognition dictation system. Departure Departure Impression: Primary Impression: Abdominal pain Additional Impression: Lactic acidosis Disposition: ADMITTED INPATIENT Condition: STABLE Referrals: NO PCP (PCP) Problem Qualifiers CARLA SORIANO DO Apr 21, 2019 21:59
[2019-04-21] MEDS ORDERED: KETOROLAC 30 MG/ML VIAL. IVP ONE (22:00)
[2019-04-21] MEDS ORDERED: IV NORMAL SALINE 1000ML BAG 1,000 ML IV ONE (22:00)
[2019-04-21] MEDS ORDERED: ONDANSETRON PF 4 MG/2 ML VIAL. IV PRN (22:00)
[2019-04-21 22:11] LABS: PROTHROMBIN TIME PATIENT 15.5 SEC (11.7-14.0)
[2019-04-21] MEDS ORDERED: CONTRAST GIVEN. MC PRN (22:15)
[2019-04-21] MEDS ORDERED: IV DEXTROSE 5% 250 ML BAG. IV PRN (22:30)
[2019-04-21] MEDS ORDERED: DEXTROSE 50% 25 GM / 50ML DISP.SYRIN. IV PRN (22:30)
[2019-04-21] MEDS ORDERED: IOHEXOL 300 MG/ML 100ML VIAL. IV ONE (22:30)
[2019-04-21 23:00] VITALS: BP 116/93
--- NOTE | 2019-04-21 23:28 | RAD ---
Examination: CT ABD PELV W/ IV CONTRST ONLY History: Abdominal pain Comparison/Correlation: None Findings: Axial images of the abdomen and pelvis were obtained following IV contrast. Imaging was performed in the early nephrographic phase. Right posterior basilar pleural thickening and calcification noted. Nodular contour of the liver is present. Calcified granulomas involve the spleen. Pancreas is unremarkable. Adrenal glands are normal. Inferior vena cava filter noted. Right renal cysts are present. Left kidney is unremarkable. Appendix is normal. No extraluminal gas. No bowel obstruction. Prostatic brachytherapy seeds noted. Urinary bladder circumferential wall thickening is present. No surrounding inflammatory change. Spurring is noted along the anterior aspect of the lumbar spine. Sacralization of L5 noted. Impression: No suspicious acute process. Subtle nodular contour of the liver which may represent underlying cirrhosis or other fibrotic process noted. PQRS Compliance Statement: One or more of the following individualized dose reduction techniques were utilized for this examination: 1. Automated exposure control 2. Adjustment of the mA and/or kV according to patient size 3. Use of iterative reconstruction technique Electronically signed by: Yaakov Barnes MD (04/21/2019 11:25 PM) [facility]
[2019-04-22] MEDS: ANTI-COAG MONITOR BY PHARMACY. MC PRN (00:24)
--- NOTE | 2019-04-22 02:43 | RAD ---
Exam: Chest one view INDICATION: Chest pain TECHNIQUE: Frontal view of the chest Comparisons: 10/04/2016 FINDINGS: Heart is enlarged. Pulmonary vessels are within normal limits. Strandy opacity within the right lung base. No pleural effusion. IMPRESSION: Cardiomegaly with Left basilar atelectasis. Electronically signed by: Bindu Arriola MD (04/22/2019 2:39 AM) [id number]
[2019-04-22 03:00] VITALS: BP 121/80
[2019-04-22] MEDS: MORPHINE SULFATE 2 MG/ML VIAL. IV PRN ×2 (03:57→10:42)
[2019-04-22 05:15] LABS: BASO % 1 % (0-3); EOS % 1 % (0-3); HEMATOCRIT 41.1 % (39.0-53.0); HEMOGLOBIN 13.2 g/dL (13.0-17.5); LYMPH # 1.2 x10^3/uL (1.0-4.8); LYMPH % 23 % (24-48); MEAN CORPUSCULAR HEMOGLOBIN 26 pg (25-35); MEAN CORPUSCULAR HGB CONC 32 g/dL (31-37); MEAN CORPUSCULAR VOLUME 82 fL (79-100); MONO # 0.5 x10^3/uL (0.0-1.1); MONO % 9 % (0-9); NEUT # 3.5 x10^3/uL (1.8-7.7); NEUT % 66 % (31-73); PLATELET COUNT 388 x10^3/uL (140-400); RED BLOOD COUNT 4.99 x10^6/uL (4.30-5.70); RED CELL DISTRIBUTION WIDTH 21.4 % (11.5-14.5); WHITE BLOOD COUNT 5.3 x10^3/uL (4.0-11.0)
[2019-04-22 05:33] LABS: ALBUMIN 2.6 g/dL (3.4-5.0); ALBUMIN/GLOBULIN RATIO 0.7 (1.0-1.7); CALCIUM 9.4 mg/dL (8.5-10.1); CREATININE 0.8 mg/dL (0.7-1.3); GFR 115.6; POTASSIUM 3.5 mmol/L (3.5-5.1); TOTAL BILIRUBIN 1.3 mg/dL (0.2-1.0); TOTAL PROTEIN 6.6 g/dL (6.4-8.2)
[2019-04-22] MEDS: IPRATRPIUM/ALBUTEROL 0.5/2.5MG 3 ML NEBU. NEB SCH ×5 (06:55→20:00)
[2019-04-22 07:15] VITALS: BP 129/66
[2019-04-22] MEDS: INSULIN LISPRO 300 UNITS/3 ML VIAL. SQ SCH ×4 (07:30→20:59)
--- NOTE | 2019-04-22 08:24 | PDOC1 ---
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 Patient recently admitted at [facility] for unspecified medical complaints. Patient states abdominal pain is cramping, worse with bowel movements. Diarrhea is loose and nonbloody. Denies nausea, vomiting. Chest pain shortness of breath. No fever chills sweats Previously admitted in November 2018, he was approached by [facility] and [facility], but denied due to history of compliance difficulties. He has 8 steps into his home, needs medical transport into his house. On repeat, [facility] awaiting plans in the future to schedule possible R TKA. He feels even more weak recently and notes his upper extremity strength is worse. CT abdomen shows no infectious process, but does show nodular liver. His INR and bilirubin are elevated as well. Admitted for further treatment of weakness and IV management of his abdominal pain Past Medical History Cardiovascular: CHF, HTN, Hyperlipidemia Pulmonary: Pulmonary embolus, Other CENTRAL NERVOUS SYSTEM: Other GI: GERD Heme/Onc: Cancer, Other Hepatobiliary: No pertinent hx Psych: Anxiety Musculoskeletal: Osteoarthritis, Other Rheumatologic: No pertinent hx Infectious disease: No pertinent hx Renal/: Prostate Ca. Endocrine: Diabetes Past Surgical History Past Surgical History: Arthroscopy, Total knee replacement, Tonsillectomy, Other Family History Family History: Heart Disease Social History Smoke: No ALCOHOL: none Drugs: None Current Medications Current Medications Current Medications Ketorolac Tromethamine (Toradol 30mg Vial) 30 mg 1X ONCE IVP Last administered on 04/21/19at 21:54; Start 04/21/19 at 22:00; Stop 04/21/19 at 22:01; Status DC Iohexol (Omnipaque 300 Mg/ml) 75 ml 1X ONCE IV Last administered on 04/21/19at 22:27; Start 04/21/19 at 22:30; Stop 04/21/19 at 22:31; Status DC Info (CONTRAST GIVEN -- Rx MONITORING) 1 each PRN DAILY PRN MC SEE COMMENTS; Start 04/21/19 at 22:15; Stop 04/23/19 at 22:14 Ondansetron HCl (Zofran) 4 mg PRN Q8HRS PRN IV NAUSEA/VOMITING 1ST CHOICE; Start 04/21/19 at 22:00; Stop 04/22/19 at 21:59 Morphine Sulfate (Morphine Sulfate) 2 mg PRN Q2HR PRN IV SEVERE PAIN 7-10 Last administered on 04/22/19at 03:57; Start 04/21/19 at 22:00; Stop 04/22/19 at 21:59 Sodium Chloride 1,000 ml @ 75 mls/hr 1X ONCE IV Last administered on 04/21/19at 22:50; Start 04/21/19 at 22:00; Stop 04/22/19 at 11:19 Acetaminophen/ Codeine Phosphate (Tylenol #3) 2 tab PRN Q8HRS PRN PO MODERATE PAIN 4-6; Start 04/21/19 at 22:30 Amlodipine Besylate (Norvasc) 10 mg DAILY PO ; Start 04/22/19 at 09:00 Apixaban (Eliquis) 5 mg BID PO ; Start 04/22/19 at 09:00 Diclofenac Sodium (Voltaren) 1 serjio BID TP ; Start 04/22/19 at 09:00 Albuterol/ Ipratropium (Duoneb) 3 ml RTQID NEB Last administered on 04/22/19at 06:55; Start 04/22/19 at 08:00 Metoprolol Succinate (Toprol Xl) 25 mg DAILY PO ; Start 04/22/19 at 09:00 Potassium Chloride (Klor-Con) 10 meq BIDWMEALS PO ; Start 04/22/19 at 08:00 Insulin Human Lispro (HumaLOG) 0-7 UNITS TIDACHC SQ ; Start 04/22/19 at 07:30 Dextrose (Dextrose 50%-Water Syringe) 12.5 gm PRN Q15MIN PRN IV SEE COMMENTS; Start 04/21/19 at 22:30 Dextrose (Iv Dextrose 5%) 250 ml PRN Q15MIN PRN IV SEE COMMENTS; Start 04/21/19 at 22:30 Lactulose (Lactulose) 20 gm DAILY PO ; Start 04/22/19 at 09:00 Psyllium Hydrophilic Mucilloid (Metamucil Fiber Packet) 1 pkt DAILY PO ; Start 04/22/19 at 09:00 Polyethylene Glycol (miraLAX PACKET) 17 gm DAILY PO ; Start 04/22/19 at 09:00 Info (Anti-Coagulation Monitoring By Pharmacy) 1 each PRN DAILY PRN MC SEE COMMENTS Last administered on 04/22/19at 00:24; Start 04/21/19 at 22:45 Active Scripts Active Eliquis (Apixaban) 5 Mg Tablet 5 Mg PO BID 30 Days Duoneb 0.5-3(2.5) Mg/3 Ml (Albuterol/Ipratropium) 3 Ml Ampul.neb 3 Ml NEB RTQID 30 Days Metoprolol Succinate ( Xl ) (Metoprolol Succinate) 25 Mg Tab.er.24h 25 Mg PO DAILY 30 Days Doxycycline Hyclate 100 Mg Tablet 100 Mg PO BID 5 Days Metoprolol Succinate ( Xl ) (Metoprolol Succinate) 25 Mg Tab.er.24h 1 Tab PO DAILY 30 Days Voltaren (Diclofenac Sodium) 100 Gm Gel..gram. 1 Serjio TP BID 30 Days Eliquis (Apixaban) 5 Mg Tablet 5 Mg PO BID Furosemide 40 Mg Tablet 40 Mg PO DAILY Amlodipine Besylate 10 Mg Tablet 10 Mg PO DAILY Reported Acetaminophen-Cod #3 Tablet (Acetaminophen/Codeine Phosphate) 1 Each Tablet 2 Tab PO PRN Q8HRS PRN Coq-10 (Ubidecarenone) 100 Mg Capsule 100 Mg PO DAILY Bumetanide 2 Mg Tablet 1 Tab PO DAILY Potassium Chloride (Potassium Chloride) 10 Meq Tab.sr.24h 10 Meq PO BIDWMEALS Gabapentin (Gabapentin) 300 Mg Capsule 600 Mg PO QHS Gabapentin (Gabapentin) 300 Mg Capsule 900 Mg PO DAILY08 Lisinopril 5 Mg Tablet 1 Tab PO DAILY Senokot (Sennosides) 8.6 Mg Tablet 1 Tab PO BID PRN Metformin Hcl 1,000 Mg Tablet 1 Tab PO BID Cymbalta (Duloxetine Hcl) 60 Mg Capsule.dr 1 Cap PO BID Allergies Allergies: Coded Allergies: fentanyl (Verified Allergy, Mild, Nausea and Vomiting, 01/02/16) ROS General: YES: Fatigue, Malaise, Appetite; No: Chills, Night Sweats, Other PSYCHOLOGICAL ROS: No: Anxiety, Behavioral Disorder, Concentration difficultie, Decreased libido, Depression, Disorientation, Hallucinations, Hostility, Irritablity, Memory difficulties, Mood Swings, Obsessive thoughts, Physical abuse, Sexual abuse, Sleep disturbances, Suicidal ideation, Other Eyes: No Blurry vision, No Decreased vision, No Double vision, No Dry eyes, No Excessive tearing, No Eye Pain, No Itchy Eyes, No Loss of vision, No Photophobia, No Scotomata, No Uses contacts, No Uses glasses, No Other HEENT: No: Heacaches, Visual Changes, Hearing change, Nasal congestion, Nasal discharge, Oral lesions, Sinus pain, Sore Throat, Epistaxis, Sneezing, Snoring, Tinnitus, Vertigo, Vocal changes, Other ALLERGY AND IMMUNOLOGY: No: Hives, Insect Bite Sensitivity, Itchy/Watery Eyes, Nasal Congestion, Post Nasal Drip, Seasonal Allergies, Other Hematological and Lymphatic: YES: Bleeding Problems, Blood Clots; No: Blood Transfusions, Brusing, Night Sweats, Pallor, Swollen Lymph Nodes, Other ENDOCRINE: No: Breast Changes, Galactorrhea, Hair Pattern Changes, Hot Flashes, Malaise/lethargy, Mood Swings, Palpitations, Polydipsia/polyuria, Skin Changes, Temperature Intolerance, Unexpected Weight Changes, Other Breast: No New/Changing Breast Lumps, No Nipple changes, No Nipple discharge, No Other Respiratory: No: Cough, Hemoptysis, Orthopnea, Pleuritic Pain, Shortness of breath, SOB with excertion, Sputum Changes, Stridor, Tachypnea, Wheezing, Other Cardiovascular: No Chest Pain, No Palpitations, No Orthopnea, No Paroxysmal Noc. Dyspnea, No Edema, No Lt Headedness, No Other Gastrointestinal: Yes Nausea, Yes Abdominal Pain, Yes Diarrhea; No Vomiting, No Constipation, No Melena, No Hematochezia, No Other Genitourinary: No Dysuria, No Frequency, No Incontinence, No Hematuria, No Retention, No Discharge, No Urgency, No Pain, No Flank Pain, No Other, No , No , No , No , No , No , No Musculoskeletal: Yes Gait Disturbance, Yes Muscular Weakness; No Joint Pain, No Joint Stiffness, No Joint Swelling, No Muscle Pain, No Pain In:, No Swelling In:, No Other Neurological: Yes Gait Disturbance; No Behavorial Changes, No Bowel/Bladder ControlChng, No Confusion, No Dizziness, No Headaches, No Impaired Coord/balance, No Memory Loss, No Numbness/Tingling, No Seizures, No Speech Problems, No Tremors, No Visual Changes, No Weakness, No Other Skin: No Dry Skin, No Eczema, No Hair Changes, No Lumps, No Mole Changes, No Mottling, No Nail Changes, No Pruritus, No Rash, No Skin Lesion Changes, No Other, No Acne Physical Exam General: Alert, Oriented X3, Cooperative, mild distress HEENT: Atraumatic, PERRLA, EOMI, Mucous membr. moist/pink Lungs: Clear to auscultation, Normal air movement Heart: S1S2, RRR, no thrills, no rubs Abdomen: Normal bowel sounds, Soft, No hepatosplenomegaly, No masses, Other (diffuse tenderness) Rectal Exam: not examined Extremities: No clubbing, No cyanosis, No edema, Normal pulses, No tenderness/swelling Skin: No rashes, No breakdown, No significant lesion Neuro: Normal speech, Strength at 5/5 X4 ext, Normal tone, Sensation intact, Cranial nerves 3-12 NL, Reflexes 2+ Psych/Mental Status: Mental status NL, Mood NL Vitals Vitals Vital Signs Date Time Temp Pulse Resp B/P (MAP) Pulse Ox O2 Delivery O2 Flow Rate FiO2 04/22/19 07:15 97.4 81 20 129/66 (87) 97 Room Air 97.4 Labs Labs Laboratory Tests Test 04/21/19 19:23 04/21/19 19:52 04/21/19 22:55 04/22/19 05:00 White Blood Count 5.8 x10^3/uL (4.0-11.0) 5.3 x10^3/uL (4.0-11.0) Red Blood Count 5.21 x10^6/uL (4.30-5.70) 4.99 x10^6/uL (4.30-5.70) Hemoglobin 13.8 g/dL (13.0-17.5) 13.2 g/dL (13.0-17.5) Hematocrit 43.0 % (39.0-53.0) 41.1 % (39.0-53.0) Mean Corpuscular Volume 83 fL (79-100) 82 fL (79-100) Mean Corpuscular Hemoglobin 26 pg (25-35) 26 pg (25-35) Mean Corpuscular Hemoglobin Concent 32 g/dL (31-37) 32 g/dL (31-37) Red Cell Distribution Width 21.5 % (11.5-14.5) 21.4 % (11.5-14.5) Platelet Count 422 x10^3/uL (140-400) 388 x10^3/uL (140-400) Neutrophils (%) (Auto) 70 % (31-73) 66 % (31-73) Lymphocytes (%) (Auto) 20 % (24-48) 23 % (24-48) Monocytes (%) (Auto) 9 % (0-9) 9 % (0-9) Eosinophils (%) (Auto) 0 % (0-3) 1 % (0-3) Basophils (%) (Auto) 1 % (0-3) 1 % (0-3) Neutrophils # (Auto) 4.0 x10^3/uL (1.8-7.7) 3.5 x10^3/uL (1.8-7.7) Lymphocytes # (Auto) 1.2 x10^3/uL (1.0-4.8) 1.2 x10^3/uL (1.0-4.8) Monocytes # (Auto) 0.5 x10^3/uL (0.0-1.1) 0.5 x10^3/uL (0.0-1.1) Eosinophils # (Auto) 0.0 x10^3/uL (0.0-0.7) 0.0 x10^3/uL (0.0-0.7) Basophils # (Auto) 0.1 x10^3/uL (0.0-0.2) 0.0 x10^3/uL (0.0-0.2) Platelet Estimate Increased (ADEQUATE) Large Platelets Few Polychromasia Slight Hypochromasia Slight Anisocytosis Mod Target Cells Occ Ovalocytes Few Schistocytes Occ RBC Morphology Bizarre Forms Few Prothrombin Time 15.5 SEC (11.7-14.0) Prothromb Time International Ratio 1.3 (0.8-1.1) Sodium Level 139 mmol/L (136-145) 140 mmol/L (136-145) Potassium Level 3.5 mmol/L (3.5-5.1) 3.5 mmol/L (3.5-5.1) Chloride Level 101 mmol/L (98-107) 103 mmol/L (98-107) Carbon Dioxide Level 29 mmol/L (21-32) 27 mmol/L (21-32) Anion Gap 9 (6-14) 10 (6-14) Blood Urea Nitrogen 8 mg/dL (8-26) 8 mg/dL (8-26) Creatinine 0.9 mg/dL (0.7-1.3) 0.8 mg/dL (0.7-1.3) Estimated GFR (Cockcroft-Gault) 100.9 115.6 BUN/Creatinine Ratio 9 (6-20) 10 (6-20) Glucose Level 136 mg/dL (70-99) 100 mg/dL (70-99) Lactic Acid Level 2.4 mmol/L (0.4-2.0) 2.4 mmol/L (0.4-2.0) Calcium Level 9.9 mg/dL (8.5-10.1) 9.4 mg/dL (8.5-10.1) Total Bilirubin 1.2 mg/dL (0.2-1.0) 1.3 mg/dL (0.2-1.0) Aspartate Amino Transf (AST/SGOT) 17 U/L (15-37) 16 U/L (15-37) Alanine Aminotransferase (ALT/SGPT) 14 U/L (16-63) 10 U/L (16-63) Alkaline Phosphatase 117 U/L (46-116) 107 U/L (46-116) Total Protein 7.0 g/dL (6.4-8.2) 6.6 g/dL (6.4-8.2) Albumin 2.7 g/dL (3.4-5.0) 2.6 g/dL (3.4-5.0) Albumin/Globulin Ratio 0.6 (1.0-1.7) 0.7 (1.0-1.7) Lipase 43 U/L (73-393) Test 04/22/19 07:39 Glucose (Fingerstick) 103 mg/dL (70-99) Laboratory Tests Test 04/21/19 19:23 04/21/19 19:52 04/21/19 22:55 04/22/19 05:00 White Blood Count 5.8 x10^3/uL (4.0-11.0) 5.3 x10^3/uL (4.0-11.0) Red Blood Count 5.21 x10^6/uL (4.30-5.70) 4.99 x10^6/uL (4.30-5.70) Hemoglobin 13.8 g/dL (13.0-17.5) 13.2 g/dL (13.0-17.5) Hematocrit 43.0 % (39.0-53.0) 41.1 % (39.0-53.0) Mean Corpuscular Volume 83 fL (79-100) 82 fL (79-100) Mean Corpuscular Hemoglobin 26 pg (25-35) 26 pg (25-35) Mean Corpuscular Hemoglobin Concent 32 g/dL (31-37) 32 g/dL (31-37) Red Cell Distribution Width 21.5 % (11.5-14.5) 21.4 % (11.5-14.5) Platelet Count 422 x10^3/uL (140-400) 388 x10^3/uL (140-400) Neutrophils (%) (Auto) 70 % (31-73) 66 % (31-73) Lymphocytes (%) (Auto) 20 % (24-48) 23 % (24-48) Monocytes (%) (Auto) 9 % (0-9) 9 % (0-9) Eosinophils (%) (Auto) 0 % (0-3) 1 % (0-3) Basophils (%) (Auto) 1 % (0-3) 1 % (0-3) Neutrophils # (Auto) 4.0 x10^3/uL (1.8-7.7) 3.5 x10^3/uL (1.8-7.7) Lymphocytes # (Auto) 1.2 x10^3/uL (1.0-4.8) 1.2 x10^3/uL (1.0-4.8) Monocytes # (Auto) 0.5 x10^3/uL (0.0-1.1) 0.5 x10^3/uL (0.0-1.1) Eosinophils # (Auto) 0.0 x10^3/uL (0.0-0.7) 0.0 x10^3/uL (0.0-0.7) Basophils # (Auto) 0.1 x10^3/uL (0.0-0.2) 0.0 x10^3/uL (0.0-0.2) Platelet Estimate Increased (ADEQUATE) Large Platelets Few Polychromasia Slight Hypochromasia Slight Anisocytosis Mod Target Cells Occ Ovalocytes Few Schistocytes Occ RBC Morphology Bizarre Forms Few Prothrombin Time 15.5 SEC (11.7-14.0) Prothromb Time International Ratio 1.3 (0.8-1.1) Sodium Level 139 mmol/L (136-145) 140 mmol/L (136-145) Potassium Level 3.5 mmol/L (3.5-5.1) 3.5 mmol/L (3.5-5.1) Chloride Level 101 mmol/L (98-107) 103 mmol/L (98-107) Carbon Dioxide Level 29 mmol/L (21-32) 27 mmol/L (21-32) Anion Gap 9 (6-14) 10 (6-14) Blood Urea Nitrogen 8 mg/dL (8-26) 8 mg/dL (8-26) Creatinine 0.9 mg/dL (0.7-1.3) 0.8 mg/dL (0.7-1.3) Estimated GFR (Cockcroft-Gault) 100.9 115.6 BUN/Creatinine Ratio 9 (6-20) 10 (6-20) Glucose Level 136 mg/dL (70-99) 100 mg/dL (70-99) Lactic Acid Level 2.4 mmol/L (0.4-2.0) 2.4 mmol/L (0.4-2.0) Calcium Level 9.9 mg/dL (8.5-10.1) 9.4 mg/dL (8.5-10.1) Total Bilirubin 1.2 mg/dL (0.2-1.0) 1.3 mg/dL (0.2-1.0) Aspartate Amino Transf (AST/SGOT) 17 U/L (15-37) 16 U/L (15-37) Alanine Aminotransferase (ALT/SGPT) 14 U/L (16-63) 10 U/L (16-63) Alkaline Phosphatase 117 U/L (46-116) 107 U/L (46-116) Total Protein 7.0 g/dL (6.4-8.2) 6.6 g/dL (6.4-8.2) Albumin 2.7 g/dL (3.4-5.0) 2.6 g/dL (3.4-5.0) Albumin/Globulin Ratio 0.6 (1.0-1.7) 0.7 (1.0-1.7) Lipase 43 U/L (73-393) Test 04/22/19 07:39 Glucose (Fingerstick) 103 mg/dL (70-99) Images Images CT abdomen - Nodular contour of the liver is present. Calcified granulomas involve the spleen. Pancreas is unremarkable. Adrenal glands are normal. Inferior vena cava filter noted. Right renal cysts are present. Left kidney is unremarkable. Appendix is normal. No extraluminal gas. No bowel obstruction. Prostatic brachytherapy seeds noted. Urinary bladder circumferential wall thickening is present. No surrounding inflammatory change. Spurring is noted along the anterior aspect of the lumbar spine. Sacralization of L5 noted. Impression: No suspicious acute process. Subtle nodular contour of the liver which may represent underlying cirrhosis or other fibrotic process noted. VTE Prophylaxis Ordered VTE Prophylaxis Devices: No VTE Pharmacological Prophylaxi: Yes Assessment/Plan Assessment/Plan A/P: Acute abdominal pain - with diarrhea, likely gastroenteritis. He does have concern for cirrhosis, does appear compensated currently Chronic obstructive pulmonary disease - stable, will cont nebs Acute on chronic systolic heart failure. No significant lesion on cath in 2017. Past EF of 30%. Mild diuresis and monitoring of lab. Update ECHO with EF sti ll in the 30% range Obstructive sleep apnea-hypopnea syndrome - O2 Coronary artery disease, status post stent - stable History of pulmonary embolism and deep vein thrombosis, on anticoagulation and s/p IVC filter Hypertension - cont meds Diabetes mellitus - basal bolus plus in house Hypercholesterolemia - cont statin DJD right knee - planned surgery in the future Gait instability - PT to work with him Weakness - failing to thrive at home, did not have home health services after SNF d/c FEN - ADA diet PPX - lovenox FULL CODE Dispo - inpatient for abdominal pain management and therapy ANSON HURT MD Apr 22, 2019 08:24
[2019-04-22] MEDS: APIXABAN 5 MG TABLET. PO SCH ×2 (08:41→20:49)
[2019-04-22] MEDS: POTASSIUM CHLORIDE 10 MEQ TABLET.ER. PO SCH ×2 (08:41→17:01)
[2019-04-22] MEDS: amLODIPine BESYLATE 10 MG TABLET PO SCH (08:41)
[2019-04-22] MEDS: METOPROLOL SUCC 24HR ER 25 MG TAB.ER.24H. PO SCH (08:41)
[2019-04-22] MEDS: DICLOFENAC SODIUM 1% TOPICAL GEL 100GM TUBE. TP SCH ×2 (08:42→20:54)
[2019-04-22] MEDS: PSYLLIUM HUSK (SUGAR FREE) 1 PKT PACKET PO SCH (08:44)
[2019-04-22] MEDS: POLYETHYLENE GLYCOL 3350 17 GM PACKET. PO SCH (08:44)
[2019-04-22] MEDS: LACTULOSE 20 GM/30 ML SOLUTION. PO SCH (08:44)
[2019-04-22] MEDS: ACETAMINOPHEN/CODEINE 300/30MG TABLET. PO PRN (09:36)
[2019-04-22 11:02] VITALS: BP 115/80
--- NOTE | 2019-04-22 13:11 | NUR ---
SS following for discharge planning. SS reviewed pt chart. Pt is from home and is currently on room air. PT/OT ordered. Pt has been to [facility], ; fax [phone], in the past in November of 2018 for skilled rehabilitation. SS will continue to follow for discharge planning.
[2019-04-22 15:09] VITALS: BP 110/80
[2019-04-22 19:30] VITALS: BP 121/84
[2019-04-22 23:15] VITALS: BP 129/60
[2019-04-23] VITALS (7 sets, daily range): BP systolic 99–128; BP diastolic 62–84
[2019-04-23] MEDS: IPRATRPIUM/ALBUTEROL 0.5/2.5MG 3 ML NEBU. NEB SCH ×4 (06:07→19:40)
[2019-04-23] MEDS: INSULIN LISPRO 300 UNITS/3 ML VIAL. SQ SCH ×4 (07:30→21:00)
[2019-04-23] MEDS: LACTULOSE 20 GM/30 ML SOLUTION. PO SCH (09:00)
[2019-04-23] MEDS: PSYLLIUM HUSK (SUGAR FREE) 1 PKT PACKET PO SCH (09:00)
[2019-04-23] MEDS: POLYETHYLENE GLYCOL 3350 17 GM PACKET. PO SCH (09:00)
[2019-04-23] MEDS: amLODIPine BESYLATE 10 MG TABLET PO SCH (09:12)
[2019-04-23] MEDS: METOPROLOL SUCC 24HR ER 25 MG TAB.ER.24H. PO SCH (09:12)
[2019-04-23] MEDS: POTASSIUM CHLORIDE 10 MEQ TABLET.ER. PO SCH ×2 (09:12→16:50)
[2019-04-23] MEDS: APIXABAN 5 MG TABLET. PO SCH ×2 (09:12→21:21)
[2019-04-23] MEDS: DICLOFENAC SODIUM 1% TOPICAL GEL 100GM TUBE. TP SCH ×2 (09:13→21:21)
[2019-04-23] MEDS: ACETAMINOPHEN/CODEINE 300/30MG TABLET. PO PRN (09:17)
[2019-04-23] MEDS ORDERED: oxyCODONE/APAP 5/325 1 TAB TABLET PO PRN (10:45)
[2019-04-23] MEDS ORDERED: LOPERAMIDE 2 MG CAPSULE PO PRN (10:45)
[2019-04-23] MEDS ORDERED: MORPHINE SULFATE 2 MG/ML VIAL. IV PRN (10:45)
[2019-04-23] MEDS ORDERED: ONDANSETRON PF 4 MG/2 ML VIAL. IVP PRN (10:45)
--- NOTE | 2019-04-23 12:25 | PDOC ---
PROGRESS NOTES Chief Complaint Chief Complaint Acute abdominal pain - with diarrhea, likely gastroenteritis. - no more diarrhea COnstipation, resolved Chronic obstructive pulmonary disease - stable, will cont nebs Acute on chronic systolic heart failure. No significant lesion on cath in 2017. Past EF of 30%. Mild diuresis and monitoring of lab. Update ECHO with EF still in the 30% range Obstructive sleep apnea-hypopnea syndrome - O2 Coronary artery disease, status post stent - stable History of pulmonary embolism and deep vein thrombosis, on anticoagulation and s/p IVC filter Hypertension - cont meds Diabetes mellitus - basal bolus plus in house Hypercholesterolemia - cont statin DJD right knee - planned surgery in the future Gait instability - PT to work with him Weakness History of Present Illness History of Present Illness no more diarrhea no more constipation [facility]? but wants to go somewhere different or home? COmplains of RT knee pain, hx left TKA wants to ff up diff ortho - was at [facility] ortho before? PLAN:Capsaicn cream to left knee SW re [facility] issues Xray left knee today ortho consult left knee SHould be able to dc tmr pending above Vitals Vitals Vital Signs Date Time Temp Pulse Resp B/P (MAP) Pulse Ox O2 Delivery O2 Flow Rate FiO2 04/23/19 11:00 98.2 60 20 112/84 (93) 96 Room Air 98.2 Physical Exam General: Alert, Oriented X3, Cooperative, mild distress Lungs: Clear Abdomen: Normal bowel sounds, Soft, No hepatosplenomegaly, No masses, Other (diffuse tenderness) Extremities: No clubbing, No cyanosis, No edema, Normal pulses, No tenderness/swelling Skin: No rashes, No breakdown, No significant lesion Labs LABS Laboratory Tests Test 04/22/19 16:40 04/22/19 20:52 04/23/19 06:25 04/23/19 07:31 Glucose (Fingerstick) 166 mg/dL (70-99) 159 mg/dL (70-99) 119 mg/dL (70-99) Lactic Acid Level 2.7 mmol/L (0.4-2.0) Test 04/23/19 10:15 04/23/19 11:40 Lactic Acid Level 2.7 mmol/L (0.4-2.0) Glucose (Fingerstick) 164 mg/dL (70-99) Review of Systems Review of Systems leftknee pain, all else is neg Comment Review of Relevant I have reviewed the following items rashid (where applicable) has been applied. Labs Laboratory Tests Test 04/21/19 19:23 04/21/19 19:52 04/21/19 22:55 04/22/19 05:00 White Blood Count 5.8 x10^3/uL (4.0-11.0) 5.3 x10^3/uL (4.0-11.0) Red Blood Count 5.21 x10^6/uL (4.30-5.70) 4.99 x10^6/uL (4.30-5.70) Hemoglobin 13.8 g/dL (13.0-17.5) 13.2 g/dL (13.0-17.5) Hematocrit 43.0 % (39.0-53.0) 41.1 % (39.0-53.0) Mean Corpuscular Volume 83 fL (79-100) 82 fL (79-100) Mean Corpuscular Hemoglobin 26 pg (25-35) 26 pg (25-35) Mean Corpuscular Hemoglobin Concent 32 g/dL (31-37) 32 g/dL (31-37) Red Cell Distribution Width 21.5 % (11.5-14.5) 21.4 % (11.5-14.5) Platelet Count 422 x10^3/uL (140-400) 388 x10^3/uL (140-400) Neutrophils (%) (Auto) 70 % (31-73) 66 % (31-73) Lymphocytes (%) (Auto) 20 % (24-48) 23 % (24-48) Monocytes (%) (Auto) 9 % (0-9) 9 % (0-9) Eosinophils (%) (Auto) 0 % (0-3) 1 % (0-3) Basophils (%) (Auto) 1 % (0-3) 1 % (0-3) Neutrophils # (Auto) 4.0 x10^3/uL (1.8-7.7) 3.5 x10^3/uL (1.8-7.7) Lymphocytes # (Auto) 1.2 x10^3/uL (1.0-4.8) 1.2 x10^3/uL (1.0-4.8) Monocytes # (Auto) 0.5 x10^3/uL (0.0-1.1) 0.5 x10^3/uL (0.0-1.1) Eosinophils # (Auto) 0.0 x10^3/uL (0.0-0.7) 0.0 x10^3/uL (0.0-0.7) Basophils # (Auto) 0.1 x10^3/uL (0.0-0.2) 0.0 x10^3/uL (0.0-0.2) Platelet Estimate Increased (ADEQUATE) Large Platelets Few Polychromasia Slight Hypochromasia Slight Anisocytosis Mod Target Cells Occ Ovalocytes Few Schistocytes Occ RBC Morphology Bizarre Forms Few Prothrombin Time 15.5 SEC (11.7-14.0) Prothromb Time International Ratio 1.3 (0.8-1.1) Sodium Level 139 mmol/L (136-145) 140 mmol/L (136-145) Potassium Level 3.5 mmol/L (3.5-5.1) 3.5 mmol/L (3.5-5.1) Chloride Level 101 mmol/L (98-107) 103 mmol/L (98-107) Carbon Dioxide Level 29 mmol/L (21-32) 27 mmol/L (21-32) Anion Gap 9 (6-14) 10 (6-14) Blood Urea Nitrogen 8 mg/dL (8-26) 8 mg/dL (8-26) Creatinine 0.9 mg/dL (0.7-1.3) 0.8 mg/dL (0.7-1.3) Estimated GFR (Cockcroft-Gault) 100.9 115.6 BUN/Creatinine Ratio 9 (6-20) 10 (6-20) Glucose Level 136 mg/dL (70-99) 100 mg/dL (70-99) Lactic Acid Level 2.4 mmol/L (0.4-2.0) 2.4 mmol/L (0.4-2.0) Calcium Level 9.9 mg/dL (8.5-10.1) 9.4 mg/dL (8.5-10.1) Total Bilirubin 1.2 mg/dL (0.2-1.0) 1.3 mg/dL (0.2-1.0) Aspartate Amino Transf (AST/SGOT) 17 U/L (15-37) 16 U/L (15-37) Alanine Aminotransferase (ALT/SGPT) 14 U/L (16-63) 10 U/L (16-63) Alkaline Phosphatase 117 U/L (46-116) 107 U/L (46-116) Total Protein 7.0 g/dL (6.4-8.2) 6.6 g/dL (6.4-8.2) Albumin 2.7 g/dL (3.4-5.0) 2.6 g/dL (3.4-5.0) Albumin/Globulin Ratio 0.6 (1.0-1.7) 0.7 (1.0-1.7) Lipase 43 U/L (73-393) Test 04/22/19 07:39 04/22/19 11:35 04/22/19 16:40 04/22/19 20:52 Glucose (Fingerstick) 103 mg/dL (70-99) 106 mg/dL (70-99) 166 mg/dL (70-99) 159 mg/dL (70-99) Test 04/23/19 06:25 04/23/19 07:31 04/23/19 10:15 04/23/19 11:40 Lactic Acid Level 2.7 mmol/L (0.4-2.0) 2.7 mmol/L (0.4-2.0) Glucose (Fingerstick) 119 mg/dL (70-99) 164 mg/dL (70-99) Laboratory Tests Test 04/22/19 16:40 04/22/19 20:52 04/23/19 06:25 04/23/19 07:31 Glucose (Fingerstick) 166 mg/dL (70-99) 159 mg/dL (70-99) 119 mg/dL (70-99) Lactic Acid Level 2.7 mmol/L (0.4-2.0) Test 04/23/19 10:15 04/23/19 11:40 Lactic Acid Level 2.7 mmol/L (0.4-2.0) Glucose (Fingerstick) 164 mg/dL (70-99) Medications Current Medications Ketorolac Tromethamine (Toradol 30mg Vial) 30 mg 1X ONCE IVP Last administered on 04/21/19 21:54; Start 04/21/19 at 22:00; Stop 04/21/19 at 22:01; Status DC Iohexol (Omnipaque 300 Mg/ml) 75 ml 1X ONCE IV Last administered on 04/21/19at 22:27; Start 04/21/19 at 22:30; Stop 04/21/19 at 22:31; Status DC Info (CONTRAST GIVEN -- Rx MONITORING) 1 each PRN DAILY PRN MC SEE COMMENTS; Start 04/21/19 at 22:15; Stop 04/23/19 at 22:14 Ondansetron HCl (Zofran) 4 mg PRN Q8HRS PRN IV NAUSEA/VOMITING 1ST CHOICE; Start 04/21/19 at 22:00; Stop 04/22/19 at 21:59; Status DC Morphine Sulfate (Morphine Sulfate) 2 mg PRN Q2HR PRN IV SEVERE PAIN 7-10 Last administered on 04/22/19at 10:42; Start 04/21/19 at 22:00; Stop 04/22/19 at 21:59; Status DC Sodium Chloride 1,000 ml @ 75 mls/hr 1X ONCE IV Last administered on 03/31 07/16at 22:50; Start 04/21/19 at 22:00; Stop 04/22/19 at 11:19; Status DC Acetaminophen/ Codeine Phosphate (Tylenol #3) 2 tab PRN Q8HRS PRN PO MILD PAIN 1-3 Last administered on 04/23/19at 09:17; Start 04/21/19 at 22:30 Amlodipine Besylate (Norvasc) 10 mg DAILY PO Last administered on 04/23/19 09:12; Start 04/22/19 at 09:00 Apixaban (Eliquis) 5 mg BID PO Last administered on 04/23/19 09:12; Start 04/22/19 at 09:00 Diclofenac Sodium (Voltaren) 1 serjio BID TP Last administered on 04/23/19 09:13; Start 04/22/19 at 09:00 Albuterol/ Ipratropium (Duoneb) 3 ml RTQID NEB Last administered on 04/23/19at 10:52; Start 04/22/19 at 08:00 Metoprolol Succinate (Toprol Xl) 25 mg DAILY PO Last administered on 04/23/19at 09:12; Start 04/22/19 at 09:00 Potassium Chloride (Klor-Con) 10 meq BIDWMEALS PO Last administered on 04/23/19at 09:12; Start 04/22/19 at 08:00 Insulin Human Lispro (HumaLOG) 0-7 UNITS TIDACHC SQ ; Start 04/22/19 at 07:30 Dextrose (Dextrose 50%-Water Syringe) 12.5 gm PRN Q15MIN PRN IV SEE COMMENTS; Start 04/21/19 at 22:30 Dextrose (Iv Dextrose 5%) 250 ml PRN Q15MIN PRN IV SEE COMMENTS; Start 04/21/19 at 22:30 Lactulose (Lactulose) 20 gm DAILY PO ; Start 04/22/19 at 09:00 Psyllium Hydrophilic Mucilloid (Metamucil Fiber Packet) 1 pkt DAILY PO ; Start 04/22/19 at 09:00 Polyethylene Glycol (miraLAX PACKET) 17 gm DAILY PO ; Start 04/22/19 at 09:00 Info (Anti-Coagulation Monitoring By Pharmacy) 1 each PRN DAILY PRN MC SEE COMMENTS Last administered on 04/22/19at 00:24; Start 04/21/19 at 22:45 Loperamide HCl (Imodium) 2 mg PRN Q15MIN PRN PO DIARRHEA; Start 04/23/19 at 10:45 Ondansetron HCl (Zofran) 4 mg PRN Q6HRS PRN IVP NAUSEA/VOMITING; Start 04/23/19 at 10:45 Oxycodone/ Acetaminophen (Percocet 5/325) 1 tab PRN Q4HRS PRN PO MODERATE PAIN, SEVERE PAIN; Start 04/23/19 at 10:45 Morphine Sulfate (Morphine Sulfate) 2 mg PRN Q2HR PRN IV PAIN; Start 04/23/19 at 10:45 Active Scripts Active Eliquis (Apixaban) 5 Mg Tablet 5 Mg PO BID 30 Days Duoneb 0.5-3(2.5) Mg/3 Ml (Albuterol/Ipratropium) 3 Ml Ampul.neb 3 Ml NEB RTQID 30 Days Metoprolol Succinate ( Xl ) (Metoprolol Succinate) 25 Mg Tab.er.24h 25 Mg PO DAILY 30 Days Doxycycline Hyclate 100 Mg Tablet 100 Mg PO BID 5 Days Metoprolol Succinate ( Xl ) (Metoprolol Succinate) 25 Mg Tab.er.24h 1 Tab PO DAILY 30 Days Voltaren (Diclofenac Sodium) 100 Gm Gel..gram. 1 Serjio TP BID 30 Days Eliquis (Apixaban) 5 Mg Tablet 5 Mg PO BID Furosemide 40 Mg Tablet 40 Mg PO DAILY Amlodipine Besylate 10 Mg Tablet 10 Mg PO DAILY Reported Acetaminophen-Cod #3 Tablet (Acetaminophen/Codeine Phosphate) 1 Each Tablet 2 Tab PO PRN Q8HRS PRN Coq-10 (Ubidecarenone) 100 Mg Capsule 100 Mg PO DAILY Bumetanide 2 Mg Tablet 1 Tab PO DAILY Potassium Chloride (Potassium Chloride) 10 Meq Tab.sr.24h 10 Meq PO BIDWMEALS Gabapentin (Gabapentin) 300 Mg Capsule 600 Mg PO QHS Gabapentin (Gabapentin) 300 Mg Capsule 900 Mg PO DAILY08 Lisinopril 5 Mg Tablet 1 Tab PO DAILY Senokot (Sennosides) 8.6 Mg Tablet 1 Tab PO BID PRN Metformin Hcl 1,000 Mg Tablet 1 Tab PO BID Cymbalta (Duloxetine Hcl) 60 Mg Capsule.dr Ahumada Cap PO BID Vitals/I & O Vital Sign - Last 24 Hours 04/22/19 04/22/19 04/22/19 04/22/19 15:09 16:11 19:30 20:00 Temp 97.8 97.4 97.8 97.4 Pulse 63 58 Resp 20 20 B/P (MAP) 110/80 (90) 121/84 (96) Pulse Ox 97 94 O2 Delivery Room Air Room Air Room Air Room Air 04/22/19 04/23/19 04/23/19 04/23/19 23:15 03:13 06:08 07:00 Temp 98.0 98.2 98.2 98.0 98.2 98.2 Pulse 53 57 70 Resp 18 18 20 B/P (MAP) 129/60 (83) 124/62 (82) 128/66 (86) Pulse Ox 99 99 99 97 O2 Delivery Room Air Room Air Room Air Room Air 04/23/19 04/23/19 04/23/19 04/23/19 08:00 09:12 09:12 10:52 Pulse 70 70 B/P (MAP) 128/66 128/66 O2 Delivery Room Air Room Air 04/23/19 11:00 Temp 98.2 98.2 Pulse 60 Resp 20 B/P (MAP) 112/84 (93) Pulse Ox 96 O2 Delivery Room Air Intake and Output 0 04/22/19 04/22/19 04/23/19 15:00 23:00 07:00 Intake Total 640 ml 280 ml 720 ml Output Total 600 ml Balance 640 ml 280 ml 120 ml OSVALDO MAR MD Apr 23, 2019 12:25
--- NOTE | 2019-04-23 14:24 | RAD ---
Examination: 2 views of the right knee HISTORY: History of osteoarthritis COMPARISON: 12/15/2018 FINDINGS: Severe joint space loss identified in the medial, lateral, patellofemoral compartments. Large osteophyte formation identified in the medial, lateral, patellofemoral compartments. Small knee joint effusion. IMPRESSION: Severe tricompartmental degenerative changes. Electronically signed by: Lalo Mariscal MD (04/23/2019 2:21 PM) [facility]
[2019-04-23] MEDS: CAPSAICIN 0.025% TOPICAL CREAM 60GM TUBE. TP SCH ×2 (14:27→21:21)
[2019-04-24 03:00] VITALS: BP 123/90
[2019-04-24 07:00] VITALS: BP 104/77
[2019-04-24] MEDS: INSULIN LISPRO 300 UNITS/3 ML VIAL. SQ SCH ×4 (07:30→21:00)
[2019-04-24] MEDS: IPRATRPIUM/ALBUTEROL 0.5/2.5MG 3 ML NEBU. NEB SCH ×4 (08:00→20:00)
[2019-04-24] MEDS ORDERED: ACET1TAB33 PO (08:34)
--- NOTE | 2019-04-24 08:36 | SNU/HH DC ---
DISCHARGE ORDERS DISCHARGE INFORMATION: DISCHARGE DATE: Apr 24, 2019 CONDITION ON DISCHARGE: Stable CODE STATUS: Code Status: Full RESIDENTIAL: SNF STAY <30 DAYS: Yes HOSPICE: HOSPICE: No HOSPICE EVAL & TREAT: No LTAC: ADMIT TO LTAC: No POST DISCHARGE ORDERS: ACTIVITY ORDERS: Activity as tolerated WEIGHT BEARING STATUS: As tolerated DIET AFTER DISCHARGE: Cardiac CHECKS AFTER DISCHARGE: CHECKS AFTER DISCHARGE: Check blood press - daily, Check blood sugar, ac/hs FOLLOW-UP: PHYSICIAN FOLLOW-UP: OP ortho of his choice LAB ORDERS FOR FOLLOW-UP: BMP and Magnesium level weekly TREATMENT/EQUIPMENT ORDERS: ADAPTIVE EQUIPMENT NEEDED: Front wheeled walker RESPIRATORY EQUIPMENT NEEDED: Oxygen, Nebulizer Physical Therapy For: Evalulation/Treatment Occupational Therapy For: Evaluation/Treatment DISCHARGE MEDICATIONS: Home Meds Active Scripts Acetaminophen With Codeine (ACETAMINOPHEN-COD #3 TABLET) 1 Each Tablet, 2 TAB PO PRN Q8HRS PRN for PAIN, #30 TAB Prov:OSVALDO MAR MD 04/24/19 Apixaban (ELIQUIS) 5 Mg Tablet, 5 MG PO BID for DVT for 30 Days, #60 TAB 5 Refills Prov:ANSON HURT MD 12/18/18 Ipratropium/Albuterol Sulfate (DUONEB 0.5-3(2.5) MG/3 ML) 3 Ml Ampul.neb, 3 ML NEB RTQID for Bronchitis for 30 Days, #120 EACH 5 Refills Prov:ANSON HURT MD 12/18/18 Doxycycline Hyclate (DOXYCYCLINE HYCLATE) 100 Mg Tablet, 100 MG PO BID for Acute bronchitis for 5 Days, #10 TAB Prov:ANSON HURT MD 12/18/18 Metoprolol Succinate (METOPROLOL SUCCINATE ( XL )) 25 Mg Tab.er.24h, 1 TAB PO DAILY for hypertension for 30 Days, #30 TAB 5 Refills Prov:ANSON HURT MD 12/18/18 Diclofenac Sodium (VOLTAREN) 100 Gm Gel..gram., 1 REGINALDO TP BID for Osteoarthritis of right knee for 30 Days, #60 EACH 2 Refills Prov:ANSON HURT MD 12/18/18 Amlodipine Besylate (AMLODIPINE BESYLATE) 10 Mg Tablet, 10 MG PO DAILY, #30 TAB Prov:NANCY KING MD 09/12/16 Reported Medications Ubidecarenone (COQ-10) 100 Mg Capsule, 100 MG PO DAILY for supplement, CAP 12/14/18 Bumetanide (BUMETANIDE) 2 Mg Tablet, 1 TAB PO DAILY for diuretic, #30 TAB 5 Refills 12/14/18 Potassium Chloride (POTASSIUM CHLORIDE ) 10 Meq Tab.sr.24h, 10 MEQ PO BIDWMEALS for supplement, TAB.SR 12/14/18 Gabapentin (GABAPENTIN ) 300 Mg Capsule, 600 MG PO QHS for NEUROGENIC PAIN, CAP 12/14/18 Gabapentin (GABAPENTIN ) 300 Mg Capsule, 900 MG PO DAILY08 for NEUROGENIC PAIN, CAP 12/14/18 Lisinopril (LISINOPRIL) 5 Mg Tablet, 1 TAB PO DAILY for hypertension, #30 TAB 5 Refills 12/14/18 Sennosides (SENOKOT) 8.6 Mg Tablet, 1 TAB PO BID PRN for CONSTIPATION, #40 TAB 10/07/16 Metformin Hcl (METFORMIN HCL) 1,000 Mg Tablet, 1 TAB PO BID, #60 TAB 5 Refills 01/02/16 Duloxetine Hcl (CYMBALTA) 60 Mg Capsule.dr, 1 CAP PO BID, #90 CAP 3 Refills 01/02/16 Discontinued Scripts Metoprolol Succinate (METOPROLOL SUCCINATE ( XL )) 25 Mg Tab.er.24h, 25 MG PO DAILY for CHF for 30 Days, #30 TAB.SR 5 Refills Prov:ANSON HURT MD 12/18/18 Apixaban (ELIQUIS) 5 Mg Tablet, 5 MG PO BID, #60 TAB Prov:NANCY KING MD 09/12/16 Furosemide (FUROSEMIDE) 40 Mg Tablet, 40 MG PO DAILY, #30 TAB Prov:NANCY KING MD 09/12/16 OSVALDO MAR MD Apr 24, 2019 08:36
[2019-04-24] MEDS: PSYLLIUM HUSK (SUGAR FREE) 1 PKT PACKET PO SCH (09:00)
[2019-04-24] MEDS: POLYETHYLENE GLYCOL 3350 17 GM PACKET. PO SCH (09:00)
[2019-04-24] MEDS: LACTULOSE 20 GM/30 ML SOLUTION. PO SCH (09:00)
--- NOTE | 2019-04-24 09:03 | NUR ---
pt refused breakfast and fingerstick. insulin held.
[2019-04-24 11:00] VITALS: BP 130/83
[2019-04-24] MEDS: DICLOFENAC SODIUM 1% TOPICAL GEL 100GM TUBE. TP SCH ×2 (11:00→15:52)
[2019-04-24] MEDS: CAPSAICIN 0.025% TOPICAL CREAM 60GM TUBE. TP SCH ×3 (11:00→21:00)
[2019-04-24] MEDS: POTASSIUM CHLORIDE 10 MEQ TABLET.ER. PO SCH ×2 (11:01→17:00)
[2019-04-24] MEDS: amLODIPine BESYLATE 10 MG TABLET PO SCH (11:02)
[2019-04-24] MEDS: APIXABAN 5 MG TABLET. PO SCH ×2 (11:03→21:43)
[2019-04-24] MEDS: METOPROLOL SUCC 24HR ER 25 MG TAB.ER.24H. PO SCH (11:03)
--- NOTE | 2019-04-24 11:36 | PDOC3 ---
Discharge Summary Visit Information Date of Admission: Apr 21, 2019 Date of Discharge: Apr 24, 2019 Admitting Diagnosis Comment: Acute abdominal pain - with diarrhea, likely gastroenteritis. - no more diarrhea COnstipation, resolved Chronic obstructive pulmonary disease - stable, will cont nebs Acute on chronic systolic heart failure. No significant lesion on cath in 2017. Past EF of 30%. Mild diuresis and monitoring of lab. Update ECHO with EF still in the 30% range Obstructive sleep apnea-hypopnea syndrome - O2 Coronary artery disease, status post stent - stable History of pulmonary embolism and deep vein thrombosis, on anticoagulation and s/p IVC filter Hypertension - cont meds Diabetes mellitus - basal bolus plus in house Hypercholesterolemia - cont statin DJD right knee - planned surgery in the future Gait instability - PT to work with him Weakness Brief Hospital Course Allergies Allergies Coded Allergies Type Severity Reaction Last Updated Verified fentanyl Allergy Mild Nausea and Vomiting 01/02/16 Yes Vital Signs Vital Signs Date Time Temp Pulse Resp B/P (MAP) Pulse Ox O2 Delivery O2 Flow Rate FiO2 04/24/19 11:03 105 104/77 04/24/19 07:00 97.3 18 95 Room Air 97.3 Lab Results Laboratory Tests Test 04/22/19 11:35 04/22/19 16:40 04/22/19 20:52 04/23/19 06:25 Glucose (Fingerstick) 106 mg/dL (70-99) 166 mg/dL (70-99) 159 mg/dL (70-99) Lactic Acid Level 2.7 mmol/L (0.4-2.0) Test 04/23/19 07:31 04/23/19 10:15 04/23/19 11:40 04/23/19 16:41 Glucose (Fingerstick) 119 mg/dL (70-99) 164 mg/dL (70-99) 135 mg/dL (70-99) Lactic Acid Level 2.7 mmol/L (0.4-2.0) Test 04/23/19 20:21 Glucose (Fingerstick) 137 mg/dL (70-99) Laboratory Tests Test 04/23/19 11:40 04/23/19 16:41 04/23/19 20:21 Glucose (Fingerstick) 164 mg/dL (70-99) 135 mg/dL (70-99) 137 mg/dL (70-99) Brief Hospital Course Mr. Quinones is a 68 old AA female who has spent 5 days at [facility] and does not want to go back there, HE initially had constipation then diarrhea, but both has resolved now, HE also has hx BAD OA< both knees , hx TKA left knee, complained of severe RT KNee pain and xray shows sever tricomparment DJD< I gave/advised OP ortho referral Pt seen and exmained SW working on [facility] RN at bedside and pt Dc < 30 Discharge Information Condition at Discharge: Improved, Stable Disposition/Orders: Other ([facility] vs SNU) Scheduled Amlodipine Besylate (Amlodipine Besylate) 10 Mg Tablet, 10 MG PO DAILY, #30 Prescribed by: NANCY KING MD on 09/12/16 1444 Last Action: Continued on 04/21/192231 by ANSON HURT MD Apixaban (Eliquis) 5 Mg Tablet, 5 MG PO BID for DVT for 30 Days, #60 Ref 5 Prescribed by: ANSON HURT MD on 12/18/18 1305 Bumetanide (Bumetanide) 2 Mg Tablet, 1 TAB PO DAILY for diuretic, #30 Ref 5 (Reported) Entered as Reported by: Xiomara Mar on 12/14/18 1016 Last Action: Reviewed on 04/21/192312 by PASCALE MATA RN Diclofenac Sodium (Voltaren) 100 Gm Gel..gram., 1 REGINALDO TP BID for Osteoarthritis of right knee for 30 Days, #60 Ref 2 Prescribed by: ANSON HURT MD on 12/18/18 1250 Last Action: Continued on 04/21/192231 by ANSON HURT MD Doxycycline Hyclate (Doxycycline Hyclate) 100 Mg Tablet, 100 MG PO BID for Acute bronchitis for 5 Days, #10 Prescribed by: ANSON HURT MD on 12/18/18 1305 Last Action: Reviewed on 04/21/192312 by PASCALE MATA RN Duloxetine Hcl (Cymbalta) 60 Mg Capsule.dr, 1 CAP PO BID, #90 Ref 3 (Reported) Entered as Reported by: AMADOU CRISOSTOMO on 01/02/16 1751 Last Action: Reviewed on 04/21/192312 by PASCALE MATA RN Gabapentin (Gabapentin ) 300 Mg Capsule, 900 MG PO DAILY08 for NEUROGENIC PAIN, (Reported) Entered as Reported by: Xiomara Mar on 12/14/18 1016 Last Action: Reviewed on 04/21/192312 by PASCALE MATA RN Gabapentin (Gabapentin ) 300 Mg Capsule, 600 MG PO QHS for NEUROGENIC PAIN, (Reported) Entered as Reported by: Xiomara Mar on 12/14/18 1016 Last Action: Reviewed on 04/21/192312 by PASCALE MATA RN Ipratropium/Albuterol Sulfate (Duoneb 0.5-3(2.5) Mg/3 Ml) 3 Ml Ampul.neb, 3 ML NEB RTQID for Bronchitis for 30 Days, #120 Ref 5 Prescribed by: ANSON HURT MD on 12/18/18 130 Last Action: Continued on 04/21/192231 by ANSON HURT MD Lisinopril (Lisinopril) 5 Mg Tablet, 1 TAB PO DAILY for hypertension, #30 Ref 5 (Reported) Entered as Reported by: Xiomara Mar on 12/14/18 1016 Last Action: Reviewed on 04/21/192312 by PASCALE MATA RN Metformin Hcl (Metformin Hcl) 1,000 Mg Tablet, 1 TAB PO BID, #60 Ref 5 (Reported) Entered as Reported by: AMADOU CRISOSTOMO on 01/02/16 1751 Last Action: Reviewed on 04/21/192312 by PASCALE MATA RN Metoprolol Succinate (Metoprolol Succinate ( Xl )) 25 Mg Tab.er.24h, 1 TAB PO DAILY for hypertension for 30 Days, #30 Ref 5 Prescribed by: ANSON HURT MD on 12/18/18 1305 Last Action: Continued on 04/21/192231 by ANSON HURT MD Potassium Chloride (Potassium Chloride ) 10 Meq Tab.sr.24h, 10 MEQ PO BIDWMEALS for supplement, (Reported) Entered as Reported by: Xiomara Mar on 12/14/18 1016 Last Action: Continued on 04/21/192231 by ANSON HURT MD Ubidecarenone (Coq-10) 100 Mg Capsule, 100 MG PO DAILY for supplement, (Reported) Entered as Reported by: Xiomara Mar on 12/14/18 1016 Last Action: Reviewed on 04/21/193 by PASCALE MATA, RN Scheduled PRN Acetaminophen With Codeine (Acetaminophen-Cod #3 Tablet) 1 Each Tablet, 2 TAB PO PRN Q8HRS PRN for PAIN, #30 Prescribed by: OSVALDO [facility] on 04/24/19 0834 Sennosides (Senokot) 8.6 Mg Tablet, 1 TAB PO BID PRN for CONSTIPATION, #40 (Reported) Entered as Reported by: CANDIE UQINTERO RN on 10/07/16 1437 Discontinued Medications Apixaban (Eliquis) 5 Mg Tablet, 5 MG PO BID, #60 Prescribed by: NANCY KING MD on 09/12/16 1506 Last Action: Continued on 04/21/192231 by ANSON HURT MD Furosemide (Furosemide) 40 Mg Tablet, 40 MG PO DAILY, #30 Prescribed by: NANCY KING MD on 09/12/16 1444 Metoprolol Succinate (Metoprolol Succinate ( Xl )) 25 Mg Tab.er.24h, 25 MG PO DAILY for CHF for 30 Days, #30 Ref 5 Prescribed by: ANSON HURT MD on 12/18/18 1305 OSVALDO MAR MD Apr 24, 2019 11:36
--- NOTE | 2019-04-24 12:49 | NUR ---
pt refused lunchtime fingerstick. states "my blood sugar is 100". educated on need for glucose checks and insulin. pt continues to refuse.
--- NOTE | 2019-04-24 14:32 | NUR ---
JEMAL following. Chart reviewed, discussed with RN. Pt has been refusing PT/OT for the last three days. Is apparently working with therapy now (after refusing this morning). JEMAL awaiting recommendations. JEMAL will continue to follow. Addendum: 04/24/19 at 1542 by BRENDA JOAQUIN PT/OT recommending acute rehab. JEMAL met with pt, pt did not want to make a decision and requested SW return tomorrow (04/25/19). JEMAL advised we need to get a referral sent today. Pt stated he needed to call his speech language pathology assistant to discuss. Pt is wanting an acute rehab in [place] and thinks he has been to [facility] in the past. JEMAL advised pt to call his speech language pathology assistant and then let his nurse know when he has spoken to his speech language pathology assistant. RN notified. Addendum: 04/24/19 at 1607 by BRENDA JOAQUIN RN notified JEMAL, pt has decided he would like referral sent to [facility]. JEMAL faxed referral to [facility] (ph: [phone], fax: [phone]). SW awaiting acceptance decision.
[2019-04-24 15:00] VITALS: BP 113/73
[2019-04-24] MEDS ORDERED: LIDOCAINE 1% PF 5 ML VIAL. INJ ONE (18:00)
[2019-04-24] MEDS ORDERED: methylPREDNISolone ACETATE 80 MG/ML VIAL. IM ONE (18:00)
--- NOTE | 2019-04-24 18:11 | NUR ---
pt refused potassium at mealtime. pt signed consent for knee injection by Dr. Sam but then refused the injection stating he wanted to talk to José Miguel first. explained that José Miguel won't be back until tomorrow and that he might not be able to get the injection still tomorrow. pt again refused injection.
[2019-04-24 19:00] VITALS: BP 86/48
--- NOTE | 2019-04-24 20:39 | PDOC2 ---
CONSULT Date of Consult Date of Consult DATE: 04/24/19 TIME: 20:38 Reason for Consult Reason for Consult: RIGHT knee pain, chronic Referring Physician Referring Physician: Danika Strong MD Identification/Chief Complaint Chief Complaint Chronic RIGHT knee pain Problems: (1) Tricompartment osteoarthritis of knee (2) S/P total knee arthroplasty Source Source: Caregiver (Evident on new x-ray. ), Chart review History of Present Illness Reason for Visit: Chronic RIGHT knee pain; patient tells me he hasn't walked on that knee for 5 yrs. Past Medical History Cardiovascular: CHF, HTN, Hyperlipidemia Pulmonary: Pulmonary embolus, Other CENTRAL NERVOUS SYSTEM: Other GI: GERD Heme/Onc: Cancer, Other Hepatobiliary: No pertinent hx Psych: Anxiety Musculoskeletal: low back pain, Osteoarthritis, Other Rheumatologic: No pertinent hx Infectious disease: No pertinent hx Renal/: Prostate Ca. Endocrine: Diabetes Past Surgical History Past Surgical History: Arthroscopy, Total knee replacement (LEFT), Tonsillectomy, Other Family History Family History: Heart Disease Social History No ALCOHOL: none Drugs: None Lives: with Family Current Problem List Problem List Tricompartmental Severe DJD of the RIGHT knee. Current Medications Current Medications Current Medications Ketorolac Tromethamine (Toradol 30mg Vial) 30 mg 1X ONCE IVP Last administered on 04/21/19at 21:54; Start 04/21/19 at 22:00; Stop 04/21/19 at 22:01; Status DC Iohexol (Omnipaque 300 Mg/ml) 75 ml 1X ONCE IV Last administered on 04/21/19at 22:27; Start 04/21/19 at 22:30; Stop 04/21/19 at 22:31; Status DC Info (CONTRAST GIVEN -- Rx MONITORING) 1 each PRN DAILY PRN MC SEE COMMENTS; Start 04/21/19 at 22:15; Stop 04/23/19 at 22:14; Status DC Ondansetron HCl (Zofran) 4 mg PRN Q8HRS PRN IV NAUSEA/VOMITING 1ST CHOICE; Sta rt 04/21/19 at 22:00; Stop 04/22/19 at 21:59; Status DC Morphine Sulfate (Morphine Sulfate) 2 mg PRN Q2HR PRN IV SEVERE PAIN 7-10 Last administered on 04/22/19at 10:42; Start 04/21/19 at 22:00; Stop 04/22/19 at 21:59; Status DC Sodium Chloride 1,000 ml @ 75 mls/hr 1X ONCE IV Last administered on 04/21/19at 22:50; Start 04/21/19 at 22:00; Stop 04/22/19 at 11:19; Status DC Acetaminophen/ Codeine Phosphate (Tylenol #3) 2 tab PRN Q8HRS PRN PO MILD PAIN 1-3 Last administered on 04/23/19at 09:17; Start 04/21/19 at 22:30 Amlodipine Besylate (Norvasc) 10 mg DAILY PO Last administered on 04/24/19at 11:02; Start 04/22/19 at 09:00 Apixaban (Eliquis) 5 mg BID PO Last administered on 04/24/19at 11:03; Start 04/22/19 at 09:00 Diclofenac Sodium (Voltaren) 1 serjio BID TP Last administered on 04/24/19at 11:00; Start 04/22/19 at 09:00 Albuterol/ Ipratropium (Duoneb) 3 ml RTQID NEB Last administered on 04/24/19at 15:48; Start 04/22/19 at 08:00 Metoprolol Succinate (Toprol Xl) 25 mg DAILY PO Last administered on 04/24/19at 11:03; Start 04/22/19 at 09:00 Potassium Chloride (Klor-Con) 10 meq BIDWMEALS PO Last administered on 04/24/19 at 11:01; Start 04/22/19 at 08:00 Insulin Human Lispro (HumaLOG) 0-7 UNITS TIDACHC SQ ; Start 04/22/19 at 07:30 Dextrose (Dextrose 50%-Water Syringe) 12.5 gm PRN Q15MIN PRN IV SEE COMMENTS; Start 04/21/19 at 22:30 Dextrose (Iv Dextrose 5%) 250 ml PRN Q15MIN PRN IV SEE COMMENTS; Start 04/21/19 at 22:30 Lactulose (Lactulose) 20 gm DAILY PO ; Start 04/22/19 at 09:00 Psyllium Hydrophilic Mucilloid (Metamucil Fiber Packet) 1 pkt DAILY PO ; Start 04/22/19 at 09:00 Polyethylene Glycol (miraLAX PACKET) 17 gm DAILY PO ; Start 04/22/19 at 09:00 Info (Anti-Coagulation Monitoring By Pharmacy) 1 each PRN DAILY PRN MC SEE COMMENTS Last administered on 04/22/19at 00:24; Start 04/21/19 at 22:45 Loperamide HCl (Imodium) 2 mg PRN Q15MIN PRN PO DIARRHEA; Start 04/23/19 at 10:45 Ondansetron HCl (Zofran) 4 mg PRN Q6HRS PRN IVP NAUSEA/VOMITING; Start 04/23/19 at 10:45 Oxycodone/ Acetaminophen (Percocet 5/325) 1 tab PRN Q4HRS PRN PO MODERATE PAIN, SEVERE PAIN; Start 04/23/19 at 10:45 Morphine Sulfate (Morphine Sulfate) 2 mg PRN Q2HR PRN IV PAIN; Start 04/23/19 at 10:45 Capsaicin (Zostrix) 1 serjio TID TP Last administered on 04/24/19at 11:00; Start 04/23/19 at 14:00 Methylprednisolone Acetate (DEPO-Medrol 80MG VIAL) 80 mg 1X ONCE IM ; Start 04/24/19 at 18:00; Stop 04/24/19 at 18:01; Status DC Lidocaine HCl (Xylocaine-Mpf 1% 5ml Vial) 5 ml 1X ONCE INJ ; Start 04/24/19 at 18:00; Stop 04/24/19 at 18:01; Status DC Active Scripts Active Acetaminophen-Cod #3 Tablet (Acetaminophen/Codeine Phosphate) 1 Each Tablet 2 Tab PO PRN Q8HRS PRN Eliquis (Apixaban) 5 Mg Tablet 5 Mg PO BID 30 Days Duoneb 0.5-3(2.5) Mg/3 Ml (Albuterol/Ipratropium) 3 Ml Ampul.neb 3 Ml NEB RTQID 30 Days Doxycycline Hyclate 100 Mg Tablet 100 Mg PO BID 5 Days Metoprolol Succinate ( Xl ) (Metoprolol Succinate) 25 Mg Tab.er.24h 1 Tab PO DAILY 30 Days Voltaren (Diclofenac Sodium) 100 Gm Gel..gram. 1 Serjio TP BID 30 Days Amlodipine Besylate 10 Mg Tablet 10 Mg PO DAILY Reported Coq-10 (Ubidecarenone) 100 Mg Capsule 100 Mg PO DAILY Bumetanide 2 Mg Tablet 1 Tab PO DAILY Potassium Chloride (Potassium Chloride) 10 Meq Tab.sr.24h 10 Meq PO BIDWMEALS Gabapentin (Gabapentin) 300 Mg Capsule 600 Mg PO QHS Gabapentin (Gabapentin) 300 Mg Capsule 900 Mg PO DAILY08 Lisinopril 5 Mg Tablet 1 Tab PO DAILY Senokot (Sennosides) 8.6 Mg Tablet 1 Tab PO BID PRN Metformin Hcl 1,000 Mg Tablet 1 Tab PO BID Cymbalta (Duloxetine Hcl) 60 Mg Capsule.dr 1 Cap PO BID Allergies Allergies: Coded Allergies: fentanyl (Verified Allergy, Mild, Nausea and Vomiting, 01/02/16) ROS Musculoskeletal: Yes Joint Pain (RIGHT knee), Yes Joint Stiffness (Right knee) Physical Exam General: Alert, Oriented X3 HEENT: Atraumatic Lungs: Clear to auscultation Heart: Regular rate Abdomen: Soft Extremities: No cyanosis, No edema, Normal pulses, No tenderness/swelling Psych/Mental Status: Other (Changes mind frequently ) MUSCULOSKELETAL: Abnormal exam of right (Knee with crepitus, joint line tenderness, lateral and medial facet tenderness. ), Abnormal passive ROM of (RIGHT knee reduced flexion.) Vitals VITALS Vital Signs Date Time Temp Pulse Resp B/P (MAP) Pulse Ox O2 Delivery O2 Flow Rate FiO2 04/24/19 19:00 97.5 65 18 86/48 (61) 95 Room Air 97.5 Labs Labs Laboratory Tests Test 04/22/19 20:52 04/23/19 06:25 04/23/19 07:31 04/23/19 10:15 Glucose (Fingerstick) 159 mg/dL (70-99) 119 mg/dL (70-99) Lactic Acid Level 2.7 mmol/L (0.4-2.0) 2.7 mmol/L (0.4-2.0) Test 04/23/19 11:40 04/23/19 16:41 04/23/19 20:21 04/24/19 17:17 Glucose (Fingerstick) 164 mg/dL (70-99) 135 mg/dL (70-99) 137 mg/dL (70-99) 122 mg/dL (70-99) Laboratory Tests Test 04/24/19 17:17 Glucose (Fingerstick) 122 mg/dL (70-99) Images Images X-rays show RIGHT knee severe tricompartmental DJD Assessment/Plan Assessment/Plan Per discusion of patients clinical findings with Dr Shaw, offered a Depo Medrol injection RIGHT knee. Medication is drawn and consent signed for Depo medrol 80 mg + Lidocaine 1% 5 cc drawn up in aseptic manner and knee prepped with alcohol pad. Patient subsequently changed his mind and refused intraarticular injection to the right knee after discussion of risks and benefits, indications. Nurse advised of patient refusal for injection after consent and handed full syringe for disposal. He will schedule a follow up in clinic if he decides he is ready for treatment of his RIGHT knee pain, stiffness, aching. REJI IRBY Jr. PAC Apr 24, 2019 20:39
[2019-04-24 23:00] VITALS: BP 102/77
[2019-04-25 03:00] VITALS: BP 105/72
[2019-04-25 07:00] VITALS: BP 104/78
[2019-04-25] MEDS: INSULIN LISPRO 300 UNITS/3 ML VIAL. SQ SCH ×3 (07:30→16:30)
[2019-04-25] MEDS: IPRATRPIUM/ALBUTEROL 0.5/2.5MG 3 ML NEBU. NEB SCH ×3 (08:00→15:36)
[2019-04-25] MEDS: POLYETHYLENE GLYCOL 3350 17 GM PACKET. PO SCH ×2 (08:07→08:33)
[2019-04-25] MEDS: PSYLLIUM HUSK (SUGAR FREE) 1 PKT PACKET PO SCH ×2 (08:07→08:33)
[2019-04-25] MEDS: APIXABAN 5 MG TABLET. PO SCH (08:07)
[2019-04-25] MEDS: METOPROLOL SUCC 24HR ER 25 MG TAB.ER.24H. PO SCH (08:10)
[2019-04-25] MEDS: POTASSIUM CHLORIDE 10 MEQ TABLET.ER. PO SCH ×2 (08:18→17:26)
[2019-04-25] MEDS: amLODIPine BESYLATE 10 MG TABLET PO SCH (08:20)
[2019-04-25] MEDS: DICLOFENAC SODIUM 1% TOPICAL GEL 100GM TUBE. TP SCH (08:20)
[2019-04-25] MEDS: CAPSAICIN 0.025% TOPICAL CREAM 60GM TUBE. TP SCH ×2 (08:21→14:00)
[2019-04-25] MEDS: LACTULOSE 20 GM/30 ML SOLUTION. PO SCH (08:33)
[2019-04-25] MEDS: ANTI-COAG MONITOR BY PHARMACY. MC PRN (10:58)
[2019-04-25 11:00] VITALS: BP 104/82
--- NOTE | 2019-04-25 11:07 | PDOC ---
Provider Note Provider Note PT refused knee injections ortho offered yesterday BEing screened for rehab MAR and dc instructions all done yesterday, no change on my end I saw and examined pt today, updated re status -0 he is aware MEDICALLY STABLE for dc today OSVALDO MAR MD Apr 25, 2019 11:07
[2019-04-25 15:00] VITALS: BP 117/70
--- NOTE | 2019-04-25 15:07 | NUR ---
JEMAL left VM to Annie at [facility] 2x: [phone], Orders faxed to [phone]. Awaiting on acceptance decision from [facility].
--- NOTE | 2019-04-25 16:28 | NUR ---
Gayla from [facility] will call RN to set up transport. Packet on chart.
--- NOTE | 2019-04-25 17:46 | NUR ---
Discharge Note: CR [facility] [address] Discharge instructions and discharge home medications reviewed with [facility] Patient discharged to [facility] with all personal belongings
== END 2019-04-25 17:45 | DRG 391 ==
LOC: ER 18:38 → 4 NORTH 21:45
PROVIDERS: ADMIT Internal Medicine; ATTEND Internal Medicine
DX: K52.9 Noninfective gastroenteritis and colitis, unspecified (principal); I50.23 Acute on chronic systolic (congestive) heart failure; E87.2 Acidosis; I11.0 Hypertensive heart disease with heart failure; E78.00 Pure hypercholesterolemia, unspecified; E78.5 Hyperlipidemia, unspecified; E11.9 Type 2 diabetes mellitus without complications; Z96.652 Presence of left artificial knee joint; I25.10 Atherosclerotic heart disease of native coronary artery without angina pectoris; G47.33 Obstructive sleep apnea (adult) (pediatric); K21.9 Gastro-esophageal reflux disease without esophagitis; F41.9 Anxiety disorder, unspecified; M17.0 Bilateral primary osteoarthritis of knee; R62.7 Adult failure to thrive; Z68.31 Body mass index [BMI] 31.0-31.9, adult; K59.00 Constipation, unspecified; G89.29 Other chronic pain; J44.9 Chronic obstructive pulmonary disease, unspecified; Z95.828 Presence of other vascular implants and grafts; Z79.899 Other long term (current) drug therapy; Z79.84 Long term (current) use of oral hypoglycemic drugs; Z79.01 Long term (current) use of anticoagulants; Z95.5 Presence of coronary angioplasty implant and graft; Z88.5 Allergy status to narcotic agent; Z87.891 Personal history of nicotine dependence; Z86.718 Personal history of other venous thrombosis and embolism; Z86.711 Personal history of pulmonary embolism; Z85.46 Personal history of malignant neoplasm of prostate; Z82.49 Family history of ischemic heart disease and other diseases of the circulatory system
CPT/HCPCS: 36415; 71045; 73560; 74177; 80053; 82962; 83605; 83690; 85025; 85610; 94640; 96374; J1815; J1885; J2270; J7030; J7620; Q9967; 97110; 97116; 97530; 99285-25; G0378